=== PATIENT | female | born 1960 | race Caucasian/White ===

== ENCOUNTER 2021-12-14 08:18 | Emergency (ER) | payer BC, SELFPAY ==
[2021-12-14] VITALS (35 sets, daily range): BP systolic 90–133; BP diastolic 30–80; PULSE 80–110; RESP 17; TEMP 37–37.2; O2SAT 86–99
--- NOTE | 2021-12-14 08:43 | ED.GENADUL_ITS ---
Discharge Plan Disposition Patient Disposition: HOME Condition: Stable Discharge Details Clinical Impression: UTI (urinary tract infection) Primary Care Provider: Unknown,Unknown ED Provider: Selvin Crook Home Meds and New Rx's Prescriptions: New levofloxacin 750 mg tablet 750 mg PO Q24H 4 Days Qty: 4 0RF midodrine 5 mg tablet 5 mg PO TID Qty: 10 0RF Rx Instructions: do not give last dose of day after 6PM or within 4 hrs of bedtime ondansetron 4 mg tablet,disintegrating 4 mg PO TID PRN3 Days Qty: 9 0RF Continued midodrine 5 mg tablet 1 tab PO DAILY Label Comments: 1 tablet three times daily baclofen 10 mg tablet 0.5 tab PO Q8H PRN Label Comments: Take half a tablet by mouth every 8 hours pantoprazole 40 mg Tablet,Delayed Release (Dr/Ec) 40 mg PO DAILY gabapentin 300 mg capsule 2 cap PO Q8H PRN Label Comments: Take 2 capsules by mouth every 8 hours letrozole 2.5 mg tablet 1 tab PO DAILY Label Comments: 1 tablet daily Discharge Instructions Instructions: Urinary Tract Infection in Women (ED) Additional Instructions: Levaquin as directed. I have provided you a short-term refill of your midodrin e, take as directed. Please watch for new or worsening symptoms and return to the ER for any concerns. Please follow-up with your primary care provider as already scheduled on Sunday. Plenty of fluids to avoid dehydration Discharge Data Discharge Date/Time-TO BE ENTERED AT DEPARTURE: 12/14/21 14:54 Medical Decision Making This is a 61-year-old female with a past medical history of metastatic breast cancer, cervical fusion, inferior vena cava filter present, type 2 diabetes, normochromic normocytic anemia, obesity, hyperlipidemia, presenting for general fatigue, subjective fever, reporting that her Paula catheter has had decreased output, has not been changed since October, concern for UTI. Pulse of 105, blood p ressure 90/63, family reports that her blood pressure runs soft typically and she has not had her Midodrine in about 2 weeks. Plan to obtain IV access, give IV fluid, oral dose of her typical 5 mg of midodrine, obtain routine screening laboratory values, including a lactate, blood cultures, and urinalysis. We will have the Paula catheter changed as well. I was able to review a med rec and problem list from [facility] where she is scheduled be seen as a new patient on Sunday for the first time. With IV fluids and p.o. meds, her blood pressure is now normotensive. Pulse is now in the 80s. She remains afebrile. Paula catheter changed and revealed small leuk esterase, 10-20 white cells, few bacteria, culture pending. White blood cell count of 7.42. Hemoglobin 7.2 hematocrit 23. Denies black tarry stools or bright red blood in her stools. She does note that she has baseline anemia but unsure of the exact numbers. She does not appear acutely symptomatic from anemia. Sodium 136 potassium 3.3 BUN 16 creatinine 0.8 GFR 83.78, glucose 136. COVID-negative Laboratory values did not reveal any obvious emergent process, patient is now normotensive and no longer with tachycardia. No evidence of sepsis at this time. Plan is to provide IV Levaquin now and provide a prescription for the next 4 days, she will see her PCP on Sunday and otherwise will return to the ER for new or worsening symptoms. Standard discharge and return precautions were provided. Patient understands, is agreeable to this plan, and has no additional questions or concerns upon discharge. This documentation was generated using [employer] dictation system, please disregard any oddities of phrase or misspellings. Medical Records Medical records reviewed: Yes I reviewed the patient's medical records. Lab Data Lab results reviewed: Yes I reviewed the patient's lab results. Labs: 12/14/21 09:00 Blood Blood Culture - Preliminary Gram Negative Gurmeet 12/14/21 11:39 Urine - Reflex from Ua Urine Culture - Pending 12/14/21 09:30 Blood Blood Culture - Pending Laboratory Tests Range/Units 12/14/21 12/14/21 12/14/21 09:00 09:00 09:00 WBC (4.4-10.8) 10^3/uL 7.47 RBC (3.93-5.22) 10^6/uL 2.67 L Hgb (11.2-15.7) g/dL 7.2 L Hct (36.0-46.0) % 23.0 L MCV (80-95) fL 86 MCH (27.0-33.0) pg 27.0 MCHC (32.0-36.0) % 31.3 L RDW (11.7-14.6) % 14.6 Plt Count (130-400) 10^3/uL 153 MPV (8.0-11.0) fL 9.2 Immature Gran % 0.4 Neutrophils % 81.3 Lymphocytes % 11.4 Monocytes % 6.4 Eosinophils % 0.4 Basophils % 0.1 Nucleated RBC % (0.0-0.3) % 0.0 Absolute Neutrophils (1.2-6.7) 10^3/uL 6.07 Absolute Lymphocytes (1.2-3.4) 10^3/uL 0.85 L Absolute Monocytes (0.1-0.8) 10^3/uL 0.48 Absolute Eosinophils (0.0-0.7) 10^3/uL 0.03 Absolute Basophils (0.0-0.2) 10^3/uL 0.01 VBG Lactate (0.6-1.4) mmol/L 1.2 Sodium (136-145) mmol/L 136 Potassium (3.5-5.1) mmol/L 3.3 L Chloride (98-107) mmol/L 100 Carbon Dioxide (21.0-32.0) mmol/L 25.5 Anion Gap (3-11) mmol/L 10.5 BUN (7-18) mg/dL 16 Creatinine (0.55-1.02) mg/dL 0.8 Est GFR (CKD-EPI 2020) (mL/min/1.73m2) 83.78 Glucose (74-106) mg/dL 136 H Calcium (8.5-10.1) mg/dL 9.2 Total Bilirubin (0.2-1.0) mg/dL 0.6 AST (15-37) U/L 14 L ALT (14-59) U/L 12 L Alkaline Phosphatase (46-116) U/L 73 Total Protein (6.4-8.2) g/dL 7.4 Albumin (3.4-5.0) g/dL 2.7 L Urine Color (Yellow) Urine Clarity (Clear) Urine pH (5-8) Ur Specific Redfield (1.005-1.025) Urine Protein (Negative) mg/dL Urine Ketones (Negative) mg/dL Urine Blood (Negative) Urine Nitrite (Negative) Urine Bilirubin (Negative) Urine Urobilinogen (Up TO 0.2) EU/dL Ur Leukocyte Esterase (Negative) Urine RBC (0-2) HPF Urine WBC (0-5) HPF Ur Epithelial Cells (Negative) HPF Urine Crystals (Negative) HPF Urine Bacteria (Negative) HPF Urine Casts (Negative) LPF Urine Mucus (Negative) Ur Culture Indicated? Urine Glucose (Negative) mg/dL COVID-19 Source SARS-CoV-2 (PCR) (Negative) Range/Units 12/14/21 12/14/21 09:19 11:39 WBC (4.4-10.8) 10^3/uL RBC (3.93-5.22) 10^6/uL Hgb (11.2-15.7) g/dL Hct (36.0-46.0) % MCV (80-95) fL MCH (27.0-33.0) pg MCHC (32.0-36.0) % RDW (11.7-14.6) % Plt Count (130-400) 10^3/uL MPV (8.0-11.0) fL Immature Gran % Neutrophils % Lymphocytes % Monocytes % Eosinophils % Basophils % Nucleated RBC % (0.0-0.3) % Absolute Neutrophils (1.2-6.7) 10^3/uL Absolute Lymphocytes (1.2-3.4) 10^3/uL Absolute Monocytes (0.1-0.8) 10^3/uL Absolute Eosinophils (0.0-0.7) 10^3/uL Absolute Basophils (0.0-0.2) 10^3/uL VBG Lactate (0.6-1.4) mmol/L Sodium (136-145) mmol/L Potassium (3.5-5.1) mmol/L Chloride (98-107) mmol/L Carbon Dioxide (21.0-32.0) mmol/L Anion Gap (3-11) mmol/L BUN (7-18) mg/dL Creatinine (0.55-1.02) mg/dL Est GFR (CKD-EPI 2020) (mL/min/1.73m2) Glucose (74-106) mg/dL Calcium (8.5-10.1) mg/dL Total Bilirubin (0.2-1.0) mg/dL AST (15-37) U/L ALT (14-59) U/L Alkaline Phosphatase (46-116) U/L Total Protein (6.4-8.2) g/dL Albumin (3.4-5.0) g/dL Urine Color (Yellow) Yellow Urine Clarity (Clear) Sl Cloudy Urine pH (5-8) 5.5 Ur Specific Redfield (1.005-1.025) 1.020 Urine Protein (Negative) mg/dL Trace H Urine Ketones (Negative) mg/dL Trace H Urine Blood (Negative) Trace-lysed H Urine Nitrite (Negative) Negative Urine Bilirubin (Negative) Negative Urine Urobilinogen (Up TO 0.2) EU/dL 0.2 Ur Leukocyte Esterase (Negative) Small H Urine RBC (0-2) HPF 0-2 Urine WBC (0-5) HPF 10-20 H Ur Epithelial Cells (Negative) HPF Rare Urine Crystals (Negative) HPF Negative Urine Bacteria (Negative) HPF Few Urine Casts (Negative) LPF Negative Urine Mucus (Negative) Negative Ur Culture Indicated? Yes Urine Glucose (Negative) mg/dL Negative COVID-19 Source Nasal/Nares SARS-CoV-2 (PCR) (Negative) Negative HPI General Mode of arrival: wheelchair . Date/Time Provider Initiated Documentation: 12/14/21 08:38 . Limitations to Documentation: no limitations . Information obtained by: patient and family . HPI Narrative: This is a 61-year-old female presenting to the ER with her son, past medical history of metastatic breast cancer, cervical fusion, inferior vena cava filter present, type 2 diabetes, normochromic normocytic anemia, obesity, hyperlipidemia, presenting for general fatigue, subjective fever, reporting that her Paula catheter has had decreased output, has not been changed since October, concern for UTI. Patient recently relocated to the area and is scheduled to be seen by her PCP on Sunday for the first time. In the meantime unfortunately she did run out of her midodrine and reports that without this her blood pressure runs consistently low. She reported mild nausea with one episode of vomiting 2 days ago. She denies headache, chest pain, shortness of breath, abdominal pain, dysuria, hematuria. Denies black tarry stools or bright red blood in her stools. Denies skin rash. Secondary to her metastatic breast cancer, spinal metastasis, and subsequent surgery, she has very little to no motor use below the chest, does have normal sensation. Related Data Home Medications Medication Instructions Recorded Confirmed baclofen 10 mg tablet 0.5 tab PO Q8H PRN 12/14/21 12/14/21 gabapentin 300 mg capsule 2 cap PO Q8H PRN 12/14/21 12/14/21 letrozole 2.5 mg tablet 1 tab PO DAILY 12/14/21 12/14/21 levofloxacin 750 mg tablet 750 mg PO Q24H 4 days #4 tabs 12/14/21 midodrine 5 mg tablet 1 tab PO DAILY 12/14/21 12/14/21 midodrine 5 mg tablet 5 mg PO TID #10 tabs 12/14/21 ondansetron 4 mg disintegrating 4 mg PO TID PRN 3 days #9 tabs 12/14/21 tablet pantoprazole 40 mg tablet,delayed 40 mg PO DAILY 12/14/21 12/14/21 release Previous Rx's Medication Instructions Recorded levofloxacin 750 mg tablet 750 mg PO Q24H 4 days #4 tabs 12/14/21 midodrine 5 mg tablet 5 mg PO TID #10 tabs 12/14/21 ondansetron 4 mg disintegrating 4 mg PO TID PRN 3 days #9 tabs 12/14/21 tablet Allergies Allergy/AdvReac Type Severity Reaction Status Date / Time No Known Allergies Allergy Unverified 12/14/21 08:42 General Stated Complaint: Urinary EIMLY: 3 Review of Systems Constitutional Constitutional: Reports fever(s) and Denies headache(s) ENT Ears, Nose, Mouth, and Throat: Denies headache(s) and Denies neck pain Cardiovascular Cardiovascular: Denies chest pain and Denies dyspnea Respiratory Respiratory: Denies cough and Denies dyspnea Gastrointestinal Gastrointestinal: Denies abdominal pain, Denies melena, Denies hematochezia, Reports nausea and Reports vomiting Genitourinary Genitourinary: Reports difficulty voiding Musculoskeletal Musculoskeletal: Denies neck pain Integumentary/Breasts Skin/Breast: Denies rash Neurologic Neurologic: Denies headache(s) Hematologic/Lymphatic Hematologic/Lymphatic: Denies easy bleeding and Denies easy bruising PFSH All Active Problems (Updated 12/14/21 @ 14:18 by PILLO Forde) UTI (urinary tract infection) (Acute) Social History Smoking/Tobacco Use Status: Never Smoking risk assessment performed?: Yes Alcohol Intake: never Drug use: Never Substance use type: does not use Do you feel safe at home: Yes Do you feel safe in your relationship?: Yes Exam Const General: cooperative, healthy appearing, comfortable and no acute distress Orientation: alert, awake and oriented x3 HENMT Head: normal to inspection, normocephalic and atraumatic Face and sinus: normal facial exam Mouth: moist mucous membranes abnormal (Slightly dry) Eyes General: appearance normal, both eyes and all related structures Conjunctivae: conjunctivae normal Neck Neck: normal visual inspection, full ROM, no meningeal signs, trachea midline, supple and nontender Resp Effort & Inspection: normal respiratory effort and able to speak in complete sentences Auscultation: clear to auscultation bilaterally Cardio Rate: regular rate Rhythm: regular rhythm GI Palpation: soft, not firm, no guarding, no pulsatile masses and nontender Auscultation: normal bowel sounds Skin General skin exam: no rashes or lesions noted Neuro General: patient alert, patient awake, moves all extremities and no focal motor deficits Cognition: normal cognition Speech: speech normal Sensory Exam: no sensory deficits noted Extrem General: capillary refill normal Psych Appearance: grossly normal Mental Status: mental status grossly normal Course Vital Signs Vital signs: Vital Signs Temperature 37.2 C 12/14/21 08:32 Pulse 105 H 12/14/21 08:32 Respiratory Rate 17 12/14/21 08:32 Blood Pressure 90/63 L 12/14/21 08:32 Pulse Oximetry 95 12/14/21 08:32 Temperature 37.2 C 12/14/21 08:32 Temperature Source Temporal Artery Scan 12/14/21 08:32 Pulse 105 H 12/14/21 08:32 Respiratory Rate 17 12/14/21 08:32 Respiratory Effort Non-Labored 12/14/21 08:36 Blood Pressure 90/63 L 12/14/21 08:32 Blood Pressure Position Sitting 12/14/21 08:32 Pulse Oximetry 95 12/14/21 08:32 Oxygen Delivery Method Room Air 12/14/21 08:32 Oxygen Flow Rate 0 12/14/21 08:32
[2021-12-14 09:07] LABS: Lactate 1.2 mmol/L (0.6-1.4)
[2021-12-14 09:08] LABS: Abs Immature Grans 0.03 10^3/uL (0.0-0.06); Absolute Basophil Count 0.01 10^3/uL (0.0-0.2); Absolute Eosinophil Count 0.03 10^3/uL (0.0-0.7); Absolute Lymphocyte Count 0.85 10^3/uL (1.2-3.4); Absolute Monocyte Count 0.48 10^3/uL (0.1-0.8); Absolute Neutrophil Count 6.07 10^3/uL (1.2-6.7); Basophils % 0.1; Eosinophils % 0.4; HGB 7.2 g/dL (11.2-15.7); Immature Grans % 0.4; Lymphocytes % 11.4; MCHC 31.3 % (32.0-36.0); MCV 86 fL (80-95); MPV 9.2 fL (8.0-11.0); Monocytes % 6.4; Neutrophils % 81.3; Platelet Count 153 10^3/uL (130-400); RBC 2.67 10^6/uL (3.93-5.22); RDW 14.6 % (11.7-14.6); RDW-SD 46.5 fL; WBC 7.47 10^3/uL (4.4-10.8)
[2021-12-14] MEDS: Normal Saline 1,000 ML 1000 ML IV ×2 (09:10→11:43)
[2021-12-14] MEDS: Ondansetron 4 MG/2 ML VIAL IVP (09:10)
[2021-12-14 09:52] LABS: ALT 12 U/L (14-59); AST 14 U/L (15-37); Albumin 2.7 g/dL (3.4-5.0); Alkaline Phosphatase 73 U/L (46-116); Anion Gap 10.5 mmol/L (3-11); BUN 16 mg/dL (7-18); Bilirubin, Total 0.6 mg/dL (0.2-1.0); CO2 25.5 mmol/L (21.0-32.0); CREATININE 0.8 mg/dL (0.55-1.02); Calcium 9.2 mg/dL (8.5-10.1); Chloride 100 mmol/L (98-107); Estimated GFR 83.78 (mL/min/1.73m2); Glucose 136 mg/dL (74-106); Potassium 3.3 mmol/L (3.5-5.1); Sodium 136 mmol/L (136-145); Total Protein 7.4 g/dL (6.4-8.2)
[2021-12-14 10:14] LABS: Source Nasal/Nares
[2021-12-14 10:46] LABS: COVID-19 PCR Negative (Negative)
[2021-12-14] MEDS: Midodrine 2.5 MG TAB 5 MG PO (11:42)
[2021-12-14 11:45] LABS: Bilirubin Negative (Negative); Blood Trace-lysed (Negative); Clarity Sl Cloudy (Clear); Glucose Negative (Negative); Ketones Trace mg/dL (Negative); Leukocyte Esterase Small (Negative); Nitrite Negative (Negative); Urobilinogen 0.2 EU/dL (Up TO 0.2); pH 5.5 (5-8)
--- NOTE | 2021-12-14 11:46 | NUR.NOTE ---
Nursing Note: Pt came in with mancera which was removed. New mancera was placed with small amount of urine output and then nothing, tried flushing with no success. Mancera removed and new one re-inserted which returned good urine flow
[2021-12-14 11:53] LABS: Bacteria Few HPF (Negative); C & S Indicated? Yes; Casts Negative LPF (Negative); Crystals Negative HPF (Negative); Epithelial Cells Rare HPF (Negative); Mucus Negative (Negative); RBC 0-2 HPF (0-2)
[2021-12-14] MEDS: levoFLOXacin 750 MG/150 ML BAG 100 MG IVPB (12:30)
--- NOTE | 2021-12-15 09:26 | W.ED.FU ---
Date of service: 12/15/21 Time of Service: 09:26 Follow Up Plan: Blood cultures, preliminarily, reveal anaerobic bottle positive, gram stain shows gram-negative rods. I contacted the patient on her cell phone, was able to speak with her son Hao. He reports that she is afebrile and overall feeling well, currently having breakfast. He was made aware of the positive blood cultures and the importance of returning to the ER. He understands that she will likely require admission and IV antibiotics. She is going to finish breakfast and then return to the ER.
== END 2021-12-14 14:54 | disposition home or self-care (01) ==
PROVIDERS: Emergency Provider Physician Assistant
DX: N39.0 Urinary tract infection, site not specified (principal); Z20.822 Contact with and (suspected) exposure to COVID-19; E11.9 Type 2 diabetes mellitus without complications; R00.0 Tachycardia, unspecified
CPT/HCPCS: 36415; 80053; 87040; 87077; 87635; 96361; 96365; 96375; 99284; 81003; 81015; 83605; 85025; 87086; 87186; J1956; J2405

== ENCOUNTER 2021-12-15 10:01 | Inpatient (IN) | payer BC, SELFPAY ==
[2021-12-15] VITALS (11 sets, daily range): BP systolic 105–130; BP diastolic 70–85; PULSE 82–101; RESP 14–20; TEMP 36.6–38.4; O2SAT 95–100
--- NOTE | 2021-12-15 | DI.US_ITS ---
Exam(s) US RENAL EXAM: US RENAL CLINICAL HISTORY: UTI. TECHNIQUE: Ann scale, color and spectral Doppler were used. COMPARISON: No exams were available for comparison FINDINGS: Renal size in cm: Right: 11.2. Left: 12.1. Echogenicity: Normal. Hydronephrosis: No. Cyst or mass: No. Nephrolithiasis: No. Other findings: None. Bladder:The urinary bladder cannot be evaluated. A catheter balloon is seen within a completely empt y urinary bladder. Renal color flow: Symmetric and within normal limits. IMPRESSION: Unremarkable examination. DATA REPOSITORY:
--- NOTE | 2021-12-15 10:04 | W.ED.GENAD ---
Discharge Plan Disposition Patient Disposition: [facility] INPATIENT Condition: Stable Discharge Details Chief Complaint: Urinary Clinical Impression: Bacteremia Primary Care Provider: Unknown,Unknown ED Provider: Selvin Crook Home Meds and New Rx's Prescriptions: No Action midodrine 5 mg tablet 1 tab PO DAILY Label Comments: 1 tablet three times daily baclofen 10 mg tablet 0.5 tab PO Q8H PRN Label Comments: Take half a tablet by mouth every 8 hours pantoprazole 40 mg Tablet,Delayed Release (Dr/Ec) 40 mg PO DAILY gabapentin 300 mg capsule 2 cap PO Q8H PRN Label Comments: Take 2 capsules by mouth every 8 hours letrozole 2.5 mg tablet 1 tab PO DAILY Label Comments: 1 tablet daily levofloxacin 750 mg tablet 750 mg PO Q24H 4 Days Qty: 4 0RF midodrine 5 mg tablet 5 mg PO TID Qty: 10 0RF Rx Instructions: do not give last dose of day after 6PM or within 4 hrs of bedtime ondansetron 4 mg tablet,disintegrating 4 mg PO TID PRN3 Days Qty: 9 0RF Medical Decision Making This is a 61-year-old female who was seen in the ER yesterday, diagnosed with a UTI, Paula catheter changed, he called back to the ER today given she had 2 positive blood cultures. Patient reports that she fell perform yesterday evening but did not have a fever. Did have mild nausea but no vomiting. Overall no significant change in her symptoms over the past 24 hours. Given her 2 gram negative broad cultures, plan is to initiate a septic work-up, I will initiate IV Rocephin and vancomycin, and discussed the admission with our hospitalist. Case was discussed with Dr. Garvey, she felt as though be Levaquin with an appropriate antibiotic and did not recommend initiating additional antibiotics. She would like the septic work-up completed and then reassess potential admission as she questions if the patient has normal labs if the patient will be well enough to go home Patient remains hemodynamically stable. Laboratory values reveal anemia, and ESR of 60, lactate of 1.3, procalcitonin 0.8, COVID-negative. CRP of 20.80. Chest x-ray unremarkable Case again discussed with Dr. Garvey who is agreeable to admission and will place admission orders This documentation was generated using [employer] system, please disregard any oddities of phrase or misspellings. Medical Records Medical records reviewed: Yes I reviewed the patient's medical records. Imaging Data Radiologic Study: Attestation: I personally reviewed and interpreted this imaging study as follows: Imaging: X-Ray Radiologist's impression: Exam(s) XR PORTABLE CHEST AP EXAM: XR PORTABLE CHEST AP CLINICAL HISTORY: bactermia TECHNIQUE: 2D digital imaging was performed of the chest. One image was obtained. An AP view was obtained. COMPARISON: No exams were available for comparison FINDINGS: There is poor inspiration. MEDIASTINUM: Normal. HEART: Normal. PULMONARY VASCULATURE: Normal. LUNGS: Clear. PLEURAL SPACE: No pleural effusion or pneumothorax. BONE:Within normal limits for the patient's age. There is an old right rib fracture deformity. OTHER FINDINGS:Surgical clips are seen in the soft tissues. Postsurgical changes are seen in the lower cervical spine. IMPRESSION: No acute pulmonary findings. Lab Data Lab results reviewed: Yes I reviewed the patient's lab results. Labs: 12/15/21 12:35 Blood Blood Culture - Pending 12/15/21 12:30 Blood Blood Culture - Pending Laboratory Tests Range/Units 12/15/21 12/15/21 12/15/21 11:46 11:53 12:30 WBC (4.4-10.8) 10^3/uL RBC (3.93-5.22) 10^6/uL Hgb (11.2-15.7) g/dL Hct (36.0-46.0) % MCV (80-95) fL MCH (27.0-33.0) pg MCHC (32.0-36.0) % RDW (11.7-14.6) % Plt Count (130-400) 10^3/uL MPV (8.0-11.0) fL Immature Gran % Neutrophils % Lymphocytes % Monocytes % Eosinophils % Basophils % Nucleated RBC % (0.0-0.3) % Absolute Neutrophils (1.2-6.7) 10^3/uL Absolute Lymphocytes (1.2-3.4) 10^3/uL Absolute Monocytes (0.1-0.8) 10^3/uL Absolute Eosinophils (0.0-0.7) 10^3/uL Absolute Basophils (0.0-0.2) 10^3/uL ESR (0-30) mm/hr PT (9.3-11.0) sec INR (0.9-1.1) VBG Lactate (0.6-1.4) mmol/L Sodium (136-145) mmol/L 133 L Potassium (3.5-5.1) mmol/L 4.2 Chloride (98-107) mmol/L 99 Carbon Dioxide (21.0-32.0) mmol/L 25.9 Anion Gap (3-11) mmol/L 8.1 BUN (7-18) mg/dL 13 Creatinine (0.55-1.02) mg/dL 0.4 L Est GFR (CKD-EPI 2020) (mL/min/1.73m2) 112.53 Glucose (74-106) mg/dL 85 Calcium (8.5-10.1) mg/dL 8.1 L Total Bilirubin (0.2-1.0) mg/dL 0.4 AST (15-37) U/L 26 ALT (14-59) U/L 12 L Alkaline Phosphatase (46-116) U/L 63 C-Reactive Protein (0.0-0.3) mg/dL 20.80 H Total Protein (6.4-8.2) g/dL 6.0 L Albumin (3.4-5.0) g/dL 2.3 L Procalcitonin ng/mL 0.8 COVID-19 Source Nasal/Nares SARS-CoV-2 (PCR) (Negative) Negative Range/Units 12/15/21 12/15/21 12/15/21 12:30 12:30 12:30 WBC (4.4-10.8) 10^3/uL 5.43 RBC (3.93-5.22) 10^6/uL 3.13 L Hgb (11.2-15.7) g/dL 8.5 L Hct (36.0-46.0) % 26.1 L MCV (80-95) fL 83 MCH (27.0-33.0) pg 27.2 MCHC (32.0-36.0) % 32.6 RDW (11.7-14.6) % 14.3 Plt Count (130-400) 10^3/uL 162 MPV (8.0-11.0) fL 9.2 Immature Gran % 0.4 Neutrophils % 76.7 Lymphocytes % 14.9 Monocytes % 7.4 Eosinophils % 0.4 Basophils % 0.2 Nucleated RBC % (0.0-0.3) % 0.0 Absolute Neutrophils (1.2-6.7) 10^3/uL 4.17 Absolute Lymphocytes (1.2-3.4) 10^3/uL 0.81 L Absolute Monocytes (0.1-0.8) 10^3/uL 0.40 Absolute Eosinophils (0.0-0.7) 10^3/uL 0.02 Absolute Basophils (0.0-0.2) 10^3/uL 0.01 ESR (0-30) mm/hr 60 H PT (9.3-11.0) sec INR (0.9-1.1) VBG Lactate (0.6-1.4) mmol/L 1.3 Sodium (136-145) mmol/L Potassium (3.5-5.1) mmol/L Chloride (98-107) mmol/L Carbon Dioxide (21.0-32.0) mmol/L Anion Gap (3-11) mmol/L BUN (7-18) mg/dL Creatinine (0.55-1.02) mg/dL Est GFR (CKD-EPI 2020) (mL/min/1.73m2) Glucose (74-106) mg/dL Calcium (8.5-10.1) mg/dL Total Bilirubin (0.2-1.0) mg/dL AST (15-37) U/L ALT (14-59) U/L Alkaline Phosphatase (46-116) U/L C-Reactive Protein (0.0-0.3) mg/dL Total Protein (6.4-8.2) g/dL Albumin (3.4-5.0) g/dL Procalcitonin ng/mL COVID-19 Source SARS-CoV-2 (PCR) (Negative) Range/Units 12/15/21 12:30 WBC (4.4-10.8) 10^3/uL RBC (3.93-5.22) 10^6/uL Hgb (11.2-15.7) g/dL Hct (36.0-46.0) % MCV (80-95) fL MCH (27.0-33.0) pg MCHC (32.0-36.0) % RDW (11.7-14.6) % Plt Count (130-400) 10^3/uL MPV (8.0-11.0) fL Immature Gran % Neutrophils % Lymphocytes % Monocytes % Eosinophils % Basophils % Nucleated RBC % (0.0-0.3) % Absolute Neutrophils (1.2-6.7) 10^3/uL Absolute Lymphocytes (1.2-3.4) 10^3/uL Absolute Monocytes (0.1-0.8) 10^3/uL Absolute Eosinophils (0.0-0.7) 10^3/uL Absolute Basophils (0.0-0.2) 10^3/uL ESR (0-30) mm/hr PT (9.3-11.0) sec 10.9 INR (0.9-1.1) 1.1 VBG Lactate (0.6-1.4) mmol/L Sodium (136-145) mmol/L Potassium (3.5-5.1) mmol/L Chloride (98-107) mmol/L Carbon Dioxide (21.0-32.0) mmol/L Anion Gap (3-11) mmol/L BUN (7-18) mg/dL Creatinine (0.55-1.02) mg/dL Est GFR (CKD-EPI 2020) (mL/min/1.73m2) Glucose (74-106) mg/dL Calcium (8.5-10.1) mg/dL Total Bilirubin (0.2-1.0) mg/dL AST (15-37) U/L ALT (14-59) U/L Alkaline Phosphatase (46-116) U/L C-Reactive Protein (0.0-0.3) mg/dL Total Protein (6.4-8.2) g/dL Albumin (3.4-5.0) g/dL Procalcitonin ng/mL COVID-19 Source SARS-CoV-2 (PCR) (Negative) HPI General Mode of arrival: wheelchair. Date/Time Provider Initiated Documentation: 12/15/21 10:03. Limitations to Documentation: no limitations. Information obtained by: patient and family. HPI Narrative: This is a 61-year-old female with a past medical history of metastatic breast cancer, cervical fusion, inferior vena cava filter present, type 2 diabetes, normochromic normocytic anemia, obesity, hyperlipidemia, presenting for evaluation after being called back because of positive blood cultures during her evaluation yesterday. Patient was seen in the ER yesterday and diagnosed with an UTI, placed on Levaquin. Denies any significant change in her symptoms from yesterday. She states that she did feel a little warm last night but denies fever. Reports that she did gag once while brushing her teeth this morning but did not vomit. Denies abdominal pain. Reports that her Paula catheter is draining far better than yesterday. Related Data Home Medications Medication Instructions Recorded Confirmed baclofen 10 mg tablet 0.5 tab PO Q8H PRN 12/14/21 12/15/21 gabapentin 300 mg capsule 2 cap PO Q8H PRN 12/14/21 12/15/21 letrozole 2.5 mg tablet 1 tab PO DAILY 12/14/21 12/15/21 levofloxacin 750 mg tablet 750 mg PO Q24H 4 days #4 tabs 12/14/21 12/15/21 midodrine 5 mg tablet 1 tab PO DAILY 12/14/21 12/15/21 midodrine 5 mg tablet 5 mg PO TID #10 tabs 12/14/21 12/15/21 ondansetron 4 mg disintegrating 4 mg PO TID PRN 3 days #9 tabs 12/14/21 12/15/21 tablet pantoprazole 40 mg tablet,delayed 40 mg PO DAILY 12/14/21 12/15/21 release Previous Rx's Medication Instructions Recorded levofloxacin 750 mg tablet 750 mg PO Q24H 4 days #4 tabs 12/14/21 midodrine 5 mg tablet 5 mg PO TID #10 tabs 12/14/21 ondansetron 4 mg disintegrating 4 mg PO TID PRN 3 days #9 tabs 12/14/21 tablet Allergies Allergy/AdvReac Type Severity Reaction Status Date / Time No Known Allergies Allergy Unverified 12/15/21 10:15 General EMILY: 3 Review of Systems Constitutional Constitutional: Denies fever(s) and Reports weakness (Baseline status post cervical surgery) ENT Ears, Nose, Mouth, and Throat: Denies neck pain Cardiovascular Cardiovascular: Denies chest pain and Denies dyspnea Respiratory Respiratory: Denies cough and Denies dyspnea Gastrointestinal Gastrointestinal: Denies abdominal pain, Denies melena, Denies hematochezia, Reports nausea and Denies vomiting Genitourinary Genitourinary: Denies hematuria and Denies dysuria Musculoskeletal Musculoskeletal: Denies back pain and Denies neck pain Integumentary/Breasts Skin/Breast: Denies rash Neurologic Neurologic: Reports weakness (Baseline status post cervical surgery) Hematologic/Lymphatic Hematologic/Lymphatic: Denies easy bleeding and Denies easy bruising PFSH All Active Problems (Updated 12/15/21 @ 13:38 by PILLO Forde) UTI (urinary tract infection) (Acute) Bacteremia (Acute) Social History Smoking/Tobacco Use Status: Never Smoking risk assessment performed?: Yes Alcohol Intake: never Drug use: Never Substance use type: does not use Do you feel safe at home: Yes Do you feel safe in your relationship?: Yes Exam Const General: cooperative, comfortable and no acute distress Orientation: alert, awake and oriented x3 HENMT Head: normal to inspection, normocephalic and atraumatic Face and sinus: normal facial exam Mouth: moist mucous membranes Eyes General: appearance normal, both eyes and all related structures Conjunctivae: conjunctivae normal Neck Neck: normal visual inspection, full ROM, no lymphadenopathy, no meningeal signs, trachea midline, supple and nontender Resp Effort & Inspection: normal respiratory effort and able to speak in complete sentences Auscultation: clear to auscultation bilaterally Cardio Rate: regular rate Rhythm: regular rhythm GI Inspection: normal to inspection Palpation: soft, not firm, no guarding, no pulsatile masses and nontender Skin General skin exam: no rashes or lesions noted Neuro General: patient alert and patient awake Cognition: normal cognition Speech: speech normal Extrem General: full ROM and capillary refill normal Psych Appearance: grossly normal Mental Status: mental status grossly normal
--- NOTE | 2021-12-15 10:15 | DI.RAD_ITS ---
Exam(s) XR PORTABLE CHEST AP EXAM: XR PORTABLE CHEST AP CLINICAL HISTORY: bactermia TECHNIQUE: 2D digital imaging was performed of the chest. One image was obtained. An AP view was ob tained. COMPARISON: No exams were available for comparison FINDINGS: There is poor inspiration. MEDIASTINUM: Normal. HEART: Normal. PULMONARY VASCULATURE: Normal. LUNGS: Clear. PLEURAL SPACE: No pleural effusion or pneumothorax. BONE:Within normal limits for the patient's age. There is an old right rib fracture deformity. OTHER FINDINGS:Surgical clips are seen in the soft tissues. Postsurgical changes are seen in the low er cervical spine. IMPRESSION: No acute pulmonary findings. DATA REPOSITORY: RADIATION DOSE DELIVERED:
[2021-12-15] MEDS: Normal Saline 1,000 ML 1000 ML IV (11:50)
[2021-12-15 11:58] LABS: Source Nasal/Nares
[2021-12-15 12:20] LABS: ALT 12 U/L (14-59); AST 26 U/L (15-37); Albumin 2.3 g/dL (3.4-5.0); Alkaline Phosphatase 63 U/L (46-116); Anion Gap 8.1 mmol/L (3-11); BUN 13 mg/dL (7-18); Bilirubin, Total 0.4 mg/dL (0.2-1.0); CO2 25.9 mmol/L (21.0-32.0); CREATININE 0.4 mg/dL (0.55-1.02); Calcium 8.1 mg/dL (8.5-10.1); Chloride 99 mmol/L (98-107); Estimated GFR 112.53 (mL/min/1.73m2); Glucose 85 mg/dL (74-106); Potassium 4.2 mmol/L (3.5-5.1); Sodium 133 mmol/L (136-145)
[2021-12-15 12:32] LABS: Lactate 1.3 mmol/L (0.6-1.4)
[2021-12-15 12:33] LABS: ESR 60 mm/hr (0-30)
[2021-12-15 12:35] LABS: COVID-19 PCR Negative (Negative)
[2021-12-15 12:38] LABS: Abs Immature Grans 0.02 10^3/uL (0.0-0.06); Absolute Basophil Count 0.01 10^3/uL (0.0-0.2); Absolute Eosinophil Count 0.02 10^3/uL (0.0-0.7); Absolute Lymphocyte Count 0.81 10^3/uL (1.2-3.4); Absolute Neutrophil Count 4.17 10^3/uL (1.2-6.7); Basophils % 0.2; Eosinophils % 0.4; HCT 26.1 % (36.0-46.0); HGB 8.5 g/dL (11.2-15.7); Immature Grans % 0.4; Lymphocytes % 14.9; MCH 27.2 pg (27.0-33.0); MCHC 32.6 % (32.0-36.0); MCV 83 fL (80-95); MPV 9.2 fL (8.0-11.0); Monocytes % 7.4; Neutrophils % 76.7; Platelet Count 162 10^3/uL (130-400); RBC 3.13 10^6/uL (3.93-5.22); RDW 14.3 % (11.7-14.6); RDW-SD 43.5 fL; WBC 5.43 10^3/uL (4.4-10.8)
[2021-12-15 12:45] LABS: INR 1.1 (0.9-1.1); Prothrombin Time 10.9 sec (9.3-11.0)
[2021-12-15 13:06] LABS: Procalcitonin 0.8 ng/mL
--- NOTE | 2021-12-15 13:35 | HPE_ITS ---
Date of service: 12/15/21 Time of Service: 13:35 Assessment and Plan Assessment and plan (1) Gram-negative bacteremia: Status: Acute Assessment and plan: Due to GNR UTI, present on admission. Await blood cultures and sensitivity results. Would continue levofloxacin started yesterday. Will monitor procalcitonin and CRP. Mancera catheter exchanged. Await renal imaging. (2) UTI (urinary tract infection): Status: Acute Assessment and plan: As above (3) Chronic anemia: Status: Chronic Assessment and plan: check anemia studies (4) Non-insulin dependent diabetes mellitus: Assessment and plan: Check A1C Carb consistent diet. Check fingersticks and offer SSI. (5) Neurogenic bladder: Assessment and plan: Mancera catheter exchanged yesterday in the ED. Will ensure the patient has the resources in the community to assist with the monthly mancera catheter changes. (6) Metastatic breast cancer: Assessment and plan: Continue home letrozole. Consult palliative care. (7) Decubitus skin ulcer: Status: Acute Assessment and plan: C/s wound care (8) DVT prophylaxis: Status: Acute Assessment and plan: SC enoxaparin (9) Discharge planning issues: Status: Acute Assessment and plan: Full code C/s PT, OT, palliative care. History of Present Illness History of Present Illness Chief Complaint: called back for positive blood cultures Narrative: Ms Back is a 61 year old female w/ PMHx of metastatic breast cancer metastatic to cervical spine resulting in paraplegia and neurogenic bladder, s/p indwelling mancera, as well as h/o IVC filter (prophylactic), T2DM (noninsulin dependent, diet controlled), hyperlipidemia, who was asked to return to the ED today due to blood cultures, collected at [facility] ED yesterday, being positive. At that time, she had presented with complaints of fatigue, subjective fever (as per ER records; the patient actually denies this), cloudy urine and a clogged mancera catheter, which was exchanged. The patient also reports having had nausea/vomiting the day before. She was initiated on empiric levofloxacin and discharged home. Both her urine and 2/4 blood cultures from yesterday's ER visit are growing GNR (likely Klebsiella, per microbiology; sensitivities will not be available until tomorrow). The patient has an elevated CRP of 20.80, procalcitonin of 0.8. She was hypotensive down to 90/63 yesterday having run out of midodrine, but it was refilled yesterday, and today her BP is 129/72. Her lactate is 1.3. The patient does not feel worse today but also does not feel better. Hospitalist admission was requested. The patient denies sx of COVID-19. She is not vaccinated against COVID-19. She has yet to be plugged in with a new PCP and does not currently have a way to get her catheter supplies. Review of Systems All systems reviewed & are unremarkable except as noted in HPI and below PFSH All Active Problems (Updated 12/15/21 @ 19:12 by Marimar Garvey MD) Decubitus skin ulcer (Acute) Discharge planning issues (Acute) DVT prophylaxis (Acute) Chronic anemia (Chronic) Gram-negative bacteremia (Acute) UTI (urinary tract infection) (Acute) Bacteremia (Acute) Medical History (Updated 12/15/21 @ 19:12 by Marimar Garvey MD) Hyperlipidemia Indwelling Mancera catheter present Metastatic breast cancer Neurogenic bladder Non-insulin dependent diabetes mellitus Normocytic normochromic anemia Paraplegia Surgical History (Updated 12/15/21 @ 19:07 by Marimar Garvey MD) H/O bilateral mastectomy S/P cervical spinal fusion S/P IVC filter Family History (Updated 12/15/21 @ 19:08 by Marimar Garvey MD) Brother Hypertension Mother Breast cancer Other Heart disease Social History Smoking/Tobacco Use Status: Never Smoking risk assessment performed?: Yes Alcohol Intake: never Drug use: Never Substance use type: does not use Do you feel safe at home: Yes Do you feel safe in your relationship?: Yes Meds Allergies and Home Medications Allergies Allergy/AdvReac Type Severity Reaction Status Date / Time No Known Allergies Allergy Unverified 12/15/21 10:15 Home Medications Medication Instructions Recorded Confirmed Type baclofen 10 mg tablet 0.5 tab PO Q8H PRN 12/14/21 12/15/21 History gabapentin 300 mg capsule 2 cap PO Q8H 12/14/21 12/15/21 History letrozole 2.5 mg tablet 1 tab PO DAILY 12/14/21 12/15/21 History levofloxacin 750 mg tablet 750 mg PO Q24H 4 days #4 tabs 12/14/21 12/15/21 Rx midodrine 5 mg tablet 5 mg PO TID #10 tabs 12/14/21 12/15/21 Rx ondansetron 4 mg disintegrating 4 mg PO TID PRN 3 days #9 tabs 12/14/21 12/15/21 Rx tablet pantoprazole 40 mg tablet,delayed 40 mg PO DAILY 12/14/21 12/15/21 History release Exam Narrative Exam Narrative: General: Very pleasant Middle-aged female who is sitting up in a chair, does not appear toxic, A&Ox3, NAD Neurological: A&Ox3, able to move BUEs and her toes; otherwise, BLE sweakness Psychiatric: Appropriate speech pattern/contenct Skin: Decubitous wounds buttocks HEENT: Atraumatic, normocephalic, EOMI, MMM, clear oropharynx, no submandibular or cervical lymphadenopathy, no goiter or JVD Cardiovascular: RRR, no m/r/g Lungs: CTAB anteriorly Gastrointestinal: soft, nontender, nondistended Genitourinary: has a mancera Extremities: no edema BLEs, +1 pedal pulses B; able to slightly move toes on B feet. Results Imaging Additional studies: CXR: No acute pulmonary findings. Labs Result diagrams: 12/15/21 12:30 12/15/21 11:46 Labs: Laboratory Results - last 24 hr 12/15/21 12/15/21 12/15/21 11:46 11:53 12:30 WBC RBC Hgb Hct MCV MCH MCHC RDW Plt Count MPV Immature Gran % Neutrophils % Lymphocytes % Monocytes % Eosinophils % Basophils % Nucleated RBC % Absolute Neutrophils Absolute Lymphocytes Absolute Monocytes Absolute Eosinophils Absolute Basophils ESR PT INR VBG Lactate Sodium 133 L Potassium 4.2 Chloride 99 Carbon Dioxide 25.9 Anion Gap 8.1 BUN 13 Creatinine 0.4 L Est GFR (CKD-EPI 2020) 112.53 Glucose 85 Calcium 8.1 L Total Bilirubin 0.4 AST 26 ALT 12 L Alkaline Phosphatase 63 C-Reactive Protein 20.80 H Total Protein 6.0 L Albumin 2.3 L Procalcitonin 0.8 COVID-19 Source Nasal/Nares SARS-CoV-2 (PCR) Negative 0912/15/21 12/15/21 12:30 12:30 12:30 WBC 5.43 RBC 3.13 L Hgb 8.5 L Hct 26.1 L MCV 83 MCH 27.2 MCHC 32.6 RDW 14.3 Plt Count 162 MPV 9.2 Immature Gran % 0.4 Neutrophils % 76.7 Lymphocytes % 14.9 Monocytes % 7.4 Eosinophils % 0.4 Basophils % 0.2 Nucleated RBC % 0.0 Absolute Neutrophils 4.17 Absolute Lymphocytes 0.81 L Absolute Monocytes 0.40 Absolute Eosinophils 0.02 Absolute Basophils 0.01 ESR 60 H PT INR VBG Lactate 1.3 Sodium Potassium Chloride Carbon Dioxide Anion Gap BUN Creatinine Est GFR (CKD-EPI 2020) Glucose Calcium Total Bilirubin AST ALT Alkaline Phosphatase C-Reactive Protein Total Protein Albumin Procalcitonin COVID-19 Source SARS-CoV-2 (PCR) 12/15/21 12:30 WBC RBC Hgb Hct MCV MCH MCHC RDW Plt Count MPV Immature Gran % Neutrophils % Lymphocytes % Monocytes % Eosinophils % Basophils % Nucleated RBC % Absolute Neutrophils Absolute Lymphocytes Absolute Monocytes Absolute Eosinophils Absolute Basophils ESR PT 10.9 INR 1.1 VBG Lactate Sodium Potassium Chloride Carbon Dioxide Anion Gap BUN Creatinine Est GFR (CKD-EPI 2020) Glucose Calcium Total Bilirubin AST ALT Alkaline Phosphatase C-Reactive Protein Total Protein Albumin Procalcitonin COVID-19 Source SARS-CoV-2 (PCR) Last Vital Signs Temp 37.1 C 12/15/21 12:57 Pulse 89 12/15/21 12:57 Resp 18 12/15/21 12:57 BP 129/72 12/15/21 12:57 Pulse Ox 97 12/15/21 12:57
[2021-12-15] MEDS: Enoxaparin 40 MG/0.4 ML SYR SC (16:13)
[2021-12-15] MEDS: Midodrine 2.5 MG TAB 5 MG PO (16:13)
[2021-12-15] MEDS: Normal Saline Flush 10 ML SYR IVP (16:14)
[2021-12-15] MEDS: levoFLOXacin 750 MG/150 ML BAG 100 MG IVPB (16:14)
[2021-12-15] MEDS: Gabapentin 300 MG CAP 600 MG PO ×2 (16:14→21:04)
[2021-12-15] MEDS: Acetaminophen 325 MG TAB PO (21:29)
[2021-12-16] VITALS (11 sets, daily range): BP systolic 95–137; BP diastolic 62–95; PULSE 62–90; RESP 16–22; TEMP 36.2–38.7; O2SAT 93–99
[2021-12-16 07:16] LABS: Abs Immature Grans 0.03 10^3/uL (0.0-0.06); Absolute Basophil Count 0.01 10^3/uL (0.0-0.2); Absolute Eosinophil Count 0.02 10^3/uL (0.0-0.7); Absolute Lymphocyte Count 0.69 10^3/uL (1.2-3.4); Absolute Monocyte Count 0.33 10^3/uL (0.1-0.8); Absolute Neutrophil Count 3.36 10^3/uL (1.2-6.7); Basophils % 0.2; Eosinophils % 0.5; HGB 10.4 g/dL (11.2-15.7); Immature Grans % 0.7; Lymphocytes % 15.5; MCH 27.5 pg (27.0-33.0); MCHC 33.5 % (32.0-36.0); MCV 82 fL (80-95); MPV 9.9 fL (8.0-11.0); Monocytes % 7.4; Neutrophils % 75.7; Platelet Count 161 10^3/uL (130-400); RBC 3.78 10^6/uL (3.93-5.22); RDW 14.1 % (11.7-14.6); RDW-SD 41.9 fL; WBC 4.44 10^3/uL (4.4-10.8)
[2021-12-16 07:33] LABS: Hemoglobin A1C 6.4 % (<5.7)
[2021-12-16 07:42] LABS: Iron 18 ug/dL (50-170); Total Iron Binding Capacity 153 ug/dL (250-450); Transferrin Sat 12 % (15-50)
[2021-12-16 07:58] LABS: Anion Gap 10.5 mmol/L (3-11); BUN 10 mg/dL (7-18); CO2 27.5 mmol/L (21.0-32.0); CREATININE 0.5 mg/dL (0.55-1.02); Calcium 8.6 mg/dL (8.5-10.1); Chloride 100 mmol/L (98-107); Estimated GFR 106.64 (mL/min/1.73m2); Ferritin 610 ng/mL (8-252); Glucose 74 mg/dL (74-106); Magnesium 1.6 mg/dL (1.8-2.4); Potassium 3.7 mmol/L (3.5-5.1); Sodium 138 mmol/L (136-145)
[2021-12-16] MEDS: Letrozole 2.5 MG TAB PO (08:03)
[2021-12-16] MEDS: Pantoprazole 40 MG TABCR PO (08:03)
[2021-12-16] MEDS: Acetaminophen 325 MG TAB PO ×2 (08:03→15:26)
[2021-12-16 08:07] LABS: C-Reactive Protein 16.38 mg/dL (0.0-0.3)
[2021-12-16 08:10] LABS: Vitamin B12 346 pg/mL (193-986)
[2021-12-16] MEDS: Midodrine 2.5 MG TAB 5 MG PO ×3 (09:07→18:05)
--- NOTE | 2021-12-16 09:34 | OT.INIE ---
Occupational Therapy Notes Inpatient Occupational Therapy Evaluation Date: 12/16/21 Referring Doctor:Marimar Garvey MD OT Orders: Non Urgent Precautions: Fall, standard, DNR/DNI PATIENT PROFILE/ADMITTING DIAGNOSIS: Pt is a 61 year old female who was admitted to [facility] through the ED with the following DX of decubitus skin ulcer, chronic anemia, gram negative bactremia, UTI. Past Medical History: All Active Problems?(Updated 12/15/21 @ 19:12 by Marimar Garvey MD) Decubitus skin ulcer (Acute) Discharge planning issues (Acute) DVT prophylaxis (Acute) Chronic anemia (Chronic) Gram-negative bacteremia (Acute) UTI (urinary tract infection) (Acute) Bacteremia (Acute) Medical History?(Updated 12/15/21 @ 19:12 by Marimar Garvey MD) Hyperlipidemia Indwelling Paula catheter present Metastatic breast cancer Neurogenic bladder Non-insulin dependent diabetes mellitus Normocytic normochromic anemia Paraplegia Surgical History?(Updated 12/15/21 @ 19:07 by Marimar Garvey MD) H/O bilateral mastectomy S/P cervical spinal fusion S/P IVC filter Social History/Home Situation: Pt states that she just recently moved her from [place]. She notes that she lives in a private home in [place] with her . She states that she is paraplegia and requires (A) with her ADL/IADL routines. She does note that she is a paraplegia and requires (A) due to this. SUBJECTIVE: Pt states that she is doing better, she reports that she is concerned about her IP thumb extension and her toe on her (R) foot which also seems to be contracted. OBJECTIVE: General Observation: Pleasant and agreeable to OT consult. Pain: no specific c/o pain but discomfort in her (R) thumb and her toe on her (R) foot which seems to be contracted. ROM: RUE Elbow flexion AROM limited into flexion, full extension, fingers and digits able to flex, (R) thumb is in hyperextension at the IP L UE hand/digits into AROM flexion and extension. STRENGTH: RUE NT LUE NT Manual Therapy [id number]: Pt states that a primary concern is her thumb she has increased hyperextension of the IP joint and decreased ability to hold objects in her (R) hand due to this. OT went over ROM Exercises with pt and discussed further splinting with an orthosis to prevent further contracture. BALANCE: Static sitting max (A) support to pts back. SPECIAL TESTS: Daily Activity Limitations Standardized Measure [facility] AM -PAC ?6 clicks? Daily Activity Inpatient Short Form: Raw score: 10 INFORMED CONSENT/EDUCATION: Pt instructed in purpose of OT Consult and plan of care. ASSESSMENT: Patient is a 61-year-old female referred to occupational therapy services with diagnosis of decubitus skin ulcer, chronic anemia, gram negative bactremia, UTI. Patient presents with clinical signs and symptoms consistent with dx, as demonstrated by the following impairment level findings/functional limitations: Pt requires (A) at her baseline level of function for her ADLs due to her paraplegia. She is dependent for dressing, bathing and requires (A) with her eating demands. She states that because she recently moved here she does not have any services in place. OT recommends HH OT to (A) with her ADLs at home. Patient is assessed as a Moderate [id number] complexity based on the following: History: see above Examination: see functional limitations as noted above Presentation: evolving Decision Making: Moderate complexity GOALS Goals x1 week 1. Pt will be able to old objects in her (R) hand without increased pain. 2. Pt will report decreased pain in (R) UE 3. Pt will be (I) and compliant with her HEP for (R) thumb. PLAN OF CARE/TREATMENT PLAN: 1x/day, 5 days/ week x 1week Initiate Occupational Therapy Services for bathing, dressing, grooming, toileting, eating, transfer training. DISCHARGE RECOMMENDATIONS OT recommends that pt return to home with HH services, and outpatient Occupational Therapy services for (R) thumb for orthosis fabrication. OT also recommends consult with podiatry if MD feels that this is appropriate for assessment of her (R) toe and assessment of her toe nails. TREATMENT TIME/MINUTES/CODES 93995, [id number], 30 minutes Stephanie Jacome OTR/[facility] [place], [place]
[2021-12-16] MEDS: Gabapentin 300 MG CAP 600 MG PO (13:46)
--- NOTE | 2021-12-16 14:09 | PT.INIE ---
Date of service: 12/16/21 Time of Service: 01:45 PT Notes Visit Reasons: Sepsis Due to GNR UTI with Bacteremia Inpatient Physical Therapy Evaluation Date: 12/16/2021 Referring Doctor: Marimar Gavrey MD PT Orders: PT CONSULT: Limited ability Precautions: Contact precautions Patient Profile/Admitting Diagnosis: 61 year old female w/ PMHx of metastatic breast cancer metastatic to cervical spine resulting in paraplegia and neurogenic bladder UTI and questionable development of shingles. PMHX: All Active Problems?(Updated 12/15/21 @ 19:12 by Marimar Garvey MD) Decubitus skin ulcer (Acute) Discharge planning issues (Acute) DVT prophylaxis (Acute) Chronic anemia (Chronic) Gram-negative bacteremia (Acute) UTI (urinary tract infection) (Acute) Bacteremia (Acute) Medical History?(Updated 12/15/21 @ 19:12 by Marimar Garvey MD) Hyperlipidemia Indwelling Mancera catheter present Metastatic breast cancer Neurogenic bladder Non-insulin dependent diabetes mellitus Normocytic normochromic anemia Paraplegia Surgical History?(Updated 12/15/21 @ 19:07 by Marimar Garvey MD) H/O bilateral mastectomy S/P cervical spinal fusion S/P IVC filter Social History/Home Situation: Patient recently moved to [place] 5 weeks ago with her , who was originally from the area. is her primary caregiver. She is a daughter, who lives in [place]. She utilizes a Raul lift from bed to wheelchair. She spends her days in manual wheelchair, with elevated head rest and reclined seat. She does not have elevated leg rests - her elevates her legs on pillows to reduce strain to her back. She is dependent on for all mobility, she is unable to manually move her wheelchair due to upper extremity weakness. She has no control of lower extremities, only sensation. No trunk control. Dependent on our nurse to roll her in bed, she has been able to use her upper extremity on rail to hold her position. Indwelling mancera cather for urination, and completes hygiene for her. Patient states she is normally able to move her neck, but today she has been doing a lot of activity with FaceTime with her daughter, and she was provided a bath, fatiguing her neck so she is now unable to move it. Current Functional Limitations: Max A for transfers, self care and mobility in WC. Able to slowly and inefficiently feed herself, brush teeth, etc. see OT note. Equipment Owned/DME: Standard WC with head rest support, reclining seat, no leg support or elevated leg rests. Mancera. Hospital bed without rails. Handicap van Subjective: Struggling with development of hitchhiker's thumb x5 weeks. Looking forward to medical equipment assessed and further services to improve quality of life. Objective: General Observation: Lying in hospital bed, with pressure-relief pillow placement, IV port left hand. Speech is slow, minimal ability to do facial expression. Unable to move neck. She is emotional in regards to her medical status. Mental Status: Alert to person, place, and date. Emotional distress Pain: None reported Vital Signs: BP 95/62 ROM: Right Upper Extremity: Active?40 degrees flexion, abduction unable, IR resting on abdomen, ER unable. Elbow flexion 110 deg, extension 45 degrees Passive?flexion 90 degrees, abduction unable to tolerate, IR 40 degrees, ER 10 degrees, elbow flexion and extension full, wrist extension 30 degrees, flexion 45 degrees, slight contracture of finger flexion Left Upper Extremity: Active?50 degrees flexion, abduction unable, IR resting on abdomen, ER unable. Elbow flexion 110 degrees, extension 45 degrees. Unable to move wrist or left digits due to pain from IV Passive?20 degrees shoulder flexion, abduction unable to tolerate, IR 45 degrees, ER 20 degrees, elbow flexion full, Extension full, defer assessment of left wrist and digits due to IV pain *Patient reports her active motion is usually able to achieve 90 degrees shoulder flexion, but feeling weak due to consequence of UTI Right Lower Extremity: Unable to perform active movement due to paraplegia Passive hip flexion 90 degrees, knee extension 0 degrees, knee flexion 120 degrees, hip ER 45 degrees, hip IR 40 degrees, extension 0 degrees Left Lower Extremity: Unable to perform active movement due to paraplegia Passive hip flexion 90 degrees, knee extension 0 degrees, knee flexion 120 degrees, hip ER 45 degrees, hip IR 40 degrees, extension 0 degrees Strength: Right Upper Extremity: Bicep/tricep 4/5, shoulder flexion 3/5 in above documented range of motion, 2/5 IR/ER, wrist flexion extension 3/5, digit flexion extension 3/5 Left Upper Extremity: Bicep/tricep 4/5, shoulder flexion 3/5 in above documented range of motion, 2/5 IR/ER, wrist flexion/extension 3/5, digit flexion/extension 3/5 Right Lower Extremity: 0/5, slight trace of toe movement Left Lower Extremity: 0/5, slight trace of toe movement Sensation: Intact throughout all extremities Bed Mobility/Transfers: Raul lift for all transfers Gait: Unable Balance: Poor, unable to do any static sitting due to trunk motor control loss Special Tests: Mobility Limitations Standardized Measure [facility] AM-PAC 6 clicks Basic Mobility Inpatient Short Form: 100% disability Informed Consent/Education: Patient instructed in purpose of PT consult and plan of care. Assessment: Patient is a 61year old female referred to physical therapy services with the diagnosis of limited ability, with recent inpatient admission due to complications of UTI with pre-existing paraplegia as a result of metastasis of C-spine from breast cancer in May 2021. Anticipated discharge tomorrow, with patient currently presenting at premorbid level of Raul lift function, so further inpatient PT not warranted. I am concerned that patient is not being allowed her best ability to perform MRADL with current standard WC. She does have upper extremity use, sufficient enough to be able to manipulate a motorized power wheelchair, which would allow for improvement of MRADLs. Patient's current standard wheelchair also does not have elevated leg rests, allowing for biomechanical strain to her low back when reclined. She will require home health PT evaluation for most appropriate wheelchair equipment assessment to improve her quality of life and safety with prolonged sitting in her chair, and to improve mobility. Patient's medical disability also deems her appropriate for further home health service in regards to physical therapy and Occupational Therapy, to improve upper extremity use for manipulation of powered wheelchair, maintain her current self-care abilities, and limit joint contractures. Patient is assessed as a High 54771 complexity based on the following: History: See above medical history Examination: Paraplegia Presentation: Unstable Decision Making: Moderate Plan of Care/Treatment Plan: Patient discharged from inpatient PT care, due to anticipated discharge home tomorrow and current achievement of premorbid level of status of Raul lift capability. See above assessment for home health recommendations and further equipment needs. TREATMENT CODE/TIME: 77377
--- NOTE | 2021-12-16 14:11 | W.NUTCONSULT ---
Date of service: 12/16/21 Time of Service: 14:11 Nutritional Consult ASSESSMENT: Wanda admitted with UTI with hx of metastatic breast cancer to cervical spine resulting in paraplegia and decubitus skin ulcer. Unable to meet with pt today however, would benefit from additional nutrients to treat pressure wound. Following regular meal plan with suboptimal adequate intake Estimated Needs: 2060-0022 kcal, 80-90 g protein, 2000 ml fluid NUTRITIONAL DIAGNOSIS: Increased nutrient needs for optimal healing of pressure wound. INTERVENTION: Continue regular meal plan 1 oz Liquid protein TID MVI 500 mg Vit C BID 220 mg Zinc sulfate qd MONITORING AND EVALUATION: will monitor po intake, labs, weight Time Spent in Nutritional Counseling and Treatment: 0
[2021-12-16] MEDS: levoFLOXacin 750 MG/150 ML BAG 100 MG IVPB (15:27)
[2021-12-16] MEDS: Normal Saline Flush 10 ML SYR IVP (15:28)
--- NOTE | 2021-12-16 18:20 | NUR.NOTE ---
Per MD order, splint applied by PT's directions. PT reports she has sensation and will report any discomfort or tightness.)Nursing Note:
--- NOTE | 2021-12-16 18:51 | W.PM.PROGNOT ---
Date of Service Date of service: 12/16/21 Time of Service: 18:52 Assessment and Plan Assessment and plan (1) Gram-negative bacteremia: Status: Acute Assessment and plan: Due to GNR UTI, present on admission. Original blood cultures have not yet speciated. Repeat blood cultures are negative. Would continue levofloxacin since CRP is coming down and blood cultures have cleared. Will monitor procalcitonin and CRP. Await further blood culture information. Mancera catheter exchanged. US renal negative (2) UTI (urinary tract infection): Status: Acute Assessment and plan: As above (3) Chronic anemia: Status: Chronic Assessment and plan: Has evidence of B12 deficiency. Replete. (4) Non-insulin dependent diabetes mellitus: Assessment and plan: A1C 6.4., diet controlled. Continue Carb consistent diet. (5) Neurogenic bladder: Assessment and plan: Mancera catheter exchanged in the ED. Will ensure the patient has the resources in the community to assist with the monthly amncera catheter changes. (6) Metastatic breast cancer: Assessment and plan: Continue home letrozole. Consult palliative care. (7) Decubitus skin ulcer: Status: Acute Assessment and plan: Wound care consulted (8) DVT prophylaxis: Status: Acute Assessment and plan: The patient is on full dose pradaxa prophylactically since her neck surgery this winter. I have requested records from the [facility] in [place], [place], to clarify the duration of therapy. (9) Discharge planning issues: Status: Acute Assessment and plan: Full code PT, OT, palliative care consulted. Will need home health on d/c. Subjective Subjective Interval history since last seen: Ms Back states that she is actually feeling better. She has been febrile most of the day today. She denies dizziness, chest pain, shortness of breath, nausea. Nursing noted blisters on her posterior upper thorax/axilla. The patient reports that her left hand is sore because of the position she had to keep it in since she has an IV in place. She also reports that her right hitchhiker's thumb is sticking back up and is wondering if there is a splint that could help her. Exam Narrative Exam Narrative: General: Very pleasant Middle-aged female who is in bed, laying with a towel over her head, A&Ox3, NAD HEENT: EOMI, MMM Cardiovascular: RRR, no m/r/g Lungs: CTAB anteriorly Gastrointestinal: soft, nontender, nondistended Genitourinary: has a mancera Extremities: no edema BLEs, +1 pedal pulses B; able to slightly move toes on B feet. Palmar surface left hand does appear to have several erythematous areas Skin: several blisters c/w sweating/friction injury on R upper posterior thorax. Objective Last Vital Signs Temp 37.7 C H 12/16/21 18:10 Pulse 76 12/16/21 15:19 Resp 16 12/16/21 15:19 BP 134/85 12/16/21 15:19 Pulse Ox 96 12/16/21 15:19 Laboratory Results - last 24 hr 12/16/21 12/16/21 12/16/21 06:40 06:40 06:40 WBC 4.44 RBC 3.78 L Hgb 10.4 L Hct 31.0 L MCV 82 MCH 27.5 MCHC 33.5 RDW 14.1 Plt Count 161 MPV 9.9 Immature Gran % 0.7 Neutrophils % 75.7 Lymphocytes % 15.5 Monocytes % 7.4 Eosinophils % 0.5 Basophils % 0.2 Nucleated RBC % 0.0 Absolute Neutrophils 3.36 Absolute Lymphocytes 0.69 L Absolute Monocytes 0.33 Absolute Eosinophils 0.02 Absolute Basophils 0.01 Sodium 138 Potassium 3.7 Chloride 100 Carbon Dioxide 27.5 Anion Gap 10.5 BUN 10 Creatinine 0.5 L Est GFR (CKD-EPI 2020) 106.64 Glucose 74 Hemoglobin A1c Calcium 8.6 Magnesium 1.6 L Iron 18 L TIBC 153 L Transferrin % Sat 12 L Ferritin 610 H C-Reactive Protein 16.38 H Vitamin B12 Folate 12/16/21 12/16/21 06:40 06:40 WBC RBC Hgb Hct MCV MCH MCHC RDW Plt Count MPV Immature Gran % Neutrophils % Lymphocytes % Monocytes % Eosinophils % Basophils % Nucleated RBC % Absolute Neutrophils Absolute Lymphocytes Absolute Monocytes Absolute Eosinophils Absolute Basophils Sodium Potassium Chloride Carbon Dioxide Anion Gap BUN Creatinine Est GFR (CKD-EPI 2020) Glucose Hemoglobin A1c 6.4 H Calcium Magnesium Iron TIBC Transferrin % Sat Ferritin C-Reactive Protein Vitamin B12 346 Folate 14.0
[2021-12-16] MEDS: Protein Nutritional Supplement 16 GM 1 OUNCE PACKET PO (20:39)
[2021-12-17] VITALS (7 sets, daily range): BP systolic 95–127; BP diastolic 61–82; PULSE 65–86; RESP 16–18; TEMP 36.8–38.2; O2SAT 94–97
[2021-12-17] MEDS: Acetaminophen 325 MG TAB PO (03:25)
[2021-12-17 07:21] LABS: Abs Immature Grans 0.03 10^3/uL (0.0-0.06); Absolute Basophil Count 0.01 10^3/uL (0.0-0.2); Absolute Eosinophil Count 0.03 10^3/uL (0.0-0.7); Absolute Lymphocyte Count 0.98 10^3/uL (1.2-3.4); Absolute Monocyte Count 0.33 10^3/uL (0.1-0.8); Absolute Neutrophil Count 2.14 10^3/uL (1.2-6.7); Basophils % 0.3; Eosinophils % 0.9; HCT 29.3 % (36.0-46.0); HGB 9.5 g/dL (11.2-15.7); Immature Grans % 0.9; Lymphocytes % 27.8; MCH 26.6 pg (27.0-33.0); MCHC 32.4 % (32.0-36.0); MCV 82 fL (80-95); MPV 9.4 fL (8.0-11.0); Monocytes % 9.4; Neutrophils % 60.7; Platelet Count 177 10^3/uL (130-400); RBC 3.57 10^6/uL (3.93-5.22); RDW 13.9 % (11.7-14.6); RDW-SD 41.9 fL; WBC 3.52 10^3/uL (4.4-10.8)
[2021-12-17 07:39] LABS: Anion Gap 8.8 mmol/L (3-11); BUN 10 mg/dL (7-18); C-Reactive Protein 10.49 mg/dL (0.0-0.3); CO2 27.2 mmol/L (21.0-32.0); CREATININE 0.6 mg/dL (0.55-1.02); Calcium 8.6 mg/dL (8.5-10.1); Chloride 101 mmol/L (98-107); Estimated GFR 102.06 (mL/min/1.73m2); Glucose 87 mg/dL (74-106); Magnesium 1.7 mg/dL (1.8-2.4); Sodium 137 mmol/L (136-145)
--- NOTE | 2021-12-17 08:03 | PDOC.CMIN ---
- If Service Date Differs Date of service: 12/17/21 Time of Service: 08:03 Care Management Initial Assess REASON FOR HOSPITALIZATION:: Sepsis, UTI PAST MEDICAL HISTORY/PAST SURGICAL HISTORY:: Ms Back is a 61 year old female w/ PMHx of metastatic breast cancer metastatic to cervical spine resulting in paraplegia and neurogenic bladder, s/p indwelling mancera, as well as h/o IVC filter (prophylactic), T2DM (noninsulin dependent, diet controlled). Medical History (Updated 12/15/21 @ 19:12 by Marimar Garvey MD). Hyperlipidemia. Indwelling Mancera catheter present. Metastatic breast cancer. Neurogenic bladder. Non-insulin dependent diabetes mellitus. Normocytic normochromic anemia. Paraplegia. Surgical History (Updated 12/15/21 @ 19:07 by Marimar Garvey MD). H/O bilateral mastectomy. S/P cervical spinal fusion. S/P IVC filter PREVIOUS FUNCTIONAL STATUS/SOCIAL/FAMILY SUPPORTS:: Wanda recently moved to [facility], seven weeks ago with her , Raulito. She shares that this was their alf plan. 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 Raulito worked for the [employer]. She reports they bought a forest near the [facility] and moved to [place] about seven weeks ago. Raulito has family locally and his brother is visiting from [place], helping them to get settled. Wanda has metastatic breast cancer and reports having a spinal surgery with tumor removal that left her without feeling from the chest down. She is able to wiggle a few toes, and move her fingers, but she reports having a contracture, hiking thumb that is causing pain in the muscles of her arm and other fingers. She shares a strong sari, network of zoroastrianism support and reports that her is her rock that helps with all of her care needs and brings katherine and enrichment to her life. They recently enjoyed going to the [facility] [employer] and like exploring the trails on their land. Raulito cleans and manages Wanda's catheter but it is usually changed by home health nursing which has yet to be set up in [place]. She requests support with seeking and securing services locally. CURRENT FUNCTIONAL STATUS:: Wanda is lying in bed, and is repositioned by staff with CM present. She is gracious in interaction, forthcoming with information, and CM notes her strengths and demeanor. Wanda shares much love and appreciation for her , and his ability to care for her, and their home. She reports he makes a super food juice for her every morning which she attributes to stopping tumor growth. ADVANCE DIRECTIVES:: None on file; Palliative Consult initiated. Has patient been provided with info about the portal/API?: Yes Did the patient sign up for the portal?: No CODE STATUS:: DNR/DNI CODE STATUS COMMENT:: I know my name is written in the book of life, and I will either live here for a short time, or in [place] for ever INSURANCE COVERAGE / FINANCIAL ISSUES:: BC/BS FEP. Additional options reviewed and provided including MCR/Disability and LTC Medicaid CURRENT HOME/COMMUNITY SERVICES/EQUIPMENT:: Medical Bed, Raul Lift, Wheelchair, Specialized Mobility Van PRIMARY CARE PHYSICIAN:: Scheduled with Dr. Zimmerman POTENTIAL DISCHARGE NEEDS:: Service connection, review of supports, JE and COA referrals, Palliative Care. Potential L/T IV ABX course; awaiting sensitivities and recommended course of treatment. New home health orders; need to request Dr. Zimmerman to follow as he has not yet met Wanda. PATIENT/FAMILY EDUCATION NEEDS:: Review of community based supports; CM reviewed resources and provided packet and LTM application. Review of discharge considerations and self care needs upon discharge Ask Me Three ANTICIPATED BARRIERS TO DISCHARGE:: Treatment course-L/T ABX and service coordination tasks. TRANSPORTATION:: Via private specialized mobility van, with her Raulito. PLAN:: Awaiting cultures and ABX course recommendations. Wanda identified needs for home health RN/PT/OT, and would also like support linking to services. She has a first PCP appointment with Dr. Zimmerman at [facility] on 12/21/21. She would also like a bedside table and discussed a motorized wheelchair with PT as well. She will transport home with Raulito in their specialized van.
[2021-12-17] MEDS: Zinc Sulfate 220 MG TAB PO (10:53)
[2021-12-17] MEDS: Multivitamin TAB 1 TAB PO (10:53)
[2021-12-17] MEDS: Midodrine 2.5 MG TAB 5 MG PO ×3 (10:55→18:47)
[2021-12-17] MEDS: Pantoprazole 40 MG TABCR PO (10:56)
[2021-12-17] MEDS: Cyanocobalamin 500 MCG TAB 1000 MCG PO (10:56)
[2021-12-17] MEDS: Letrozole 2.5 MG TAB PO (10:56)
[2021-12-17] MEDS: Ascorbic Acid 500 MG TAB PO ×2 (10:56→20:13)
[2021-12-17] MEDS: Normal Saline Flush 10 ML SYR IVP ×3 (10:57→20:13)
[2021-12-17] MEDS: Protein Nutritional Supplement 16 GM 1 OUNCE PACKET PO ×3 (10:57→20:13)
--- NOTE | 2021-12-17 11:01 | WOUNDCONS ---
- If Service Date Differs Date of service: 12/17/21 Time of Service: 11:02 Wound Initial Evaluation Narrative: Patient is a 61 yof. She recently moved here from [place], she has not established PCP coverage as of yet. She was called back to the ED yesterday after Microbiology showed she was growing Gram negative rods in her urine. Patient has a hx significant fo breast cancer with yesy to the spine which has resulted in her being a paraplegic since May of this year. Other items to note She has NIDDM, and a neurogenic bladder, with mancera being changed yesterday in the ED. Patient presents with 3 areas of pressure. An old area on the right ischium that is nearly closed over. Then a new area on the sacrum, and left ischium. Patient felt these have been present for about 9 weeks, which was two weeks prior to her traveling cross country from [place] to here. Discussed goals of treatment with the patient. She consents to the treatment and signs consent. Reviewed Labs today, notable; H&H 9.6- 29.3 KCL 3.0 Mag 1.7 CRP 10.49, which has trended down. Discussed off-loading pressure with the patient and her . She stated she has a pressure relieving w/c that helps her off-load pressure while in the chair. It is explained to the patient that these wounds can start in a small matter of time, and pressure must be off-loaded every 2 hours. Patient was not aware of this . - Wound Left Posterior Thigh Wound Type: Pressure Ulcer (Ischium) Pressure Ulcer Stage: III Wound General Appearance: Reddened, Blackened, Draining, Bleeding, Necrotic, Unapproximated Wound Bed Greatest Portion: Black (Eschar) Wound Bed Lesser Portion: Red (Granulation) Wound Surrounding Tissue Appearance: Normal/Healthy Percent of Wound Bed Granulated/Red: 40 Percent of Wound Bed Slough/Yellow: 10 Percent of Wound Bed Eschar/Black: 50 Wound Length: 7.3 cm Wound Width: 3 cm Wound Depth: 0.3 cm Wound Drainage Amount: Minimal Wound Drainage Odor: None/Absent Wound Drainage Description: Bloody Wound Topical Solution/Irrigant: Antibiotic Irrigant Wound Debridement Method: Gauze Wound Debridement Result: Healthy Tissue Revealed Wound Debridement Amount of Tissue Removed: Minimal Lumbar/Sacral Wound Type: Pressure Ulcer Pressure Ulcer Stage: II Wound General Appearance: Reddened, Draining, Bleeding, Unapproximated Wound Bed Greatest Portion: Red (Granulation) Wound Bed Lesser Portion: Pale [place] Wound Surrounding Tissue Appearance: Normal/Healthy Percent of Wound Bed Granulated/Red: 80 Wound Length: 4.9 cm Wound Width: 4.9 cm Wound Depth: 0.2 cm Wound Drainage Amount: Moderate Wound Drainage Odor: None/Absent Wound Drainage Description: Bloody Wound Topical Solution/Irrigant: Antibiotic Irrigant Wound Debridement Method: Gauze Wound Debridement Result: Healthy Tissue Revealed Wound Debridement Amount of Tissue Removed: Moderate - Circulation, Sensation, Motion Peripheral Pulse Strength: Normal Capillary Refill: Less than 3 seconds Skin Temperature: Warm Skin Color: Normal (Foot drop noted bilaterally) - Pain Pain Level: 0 (very little sensation below the chest) Pain Scale Used: Visual Analog Scale 0-10 Patient who has recently moved here from [place]. Besides having a complicated UTI, she has two new pressure areas, also showed me two areas of intact blisters, photo taken, not doing anything for treatment for them. She also was noted to have foot drop. Heel booties were applied to them. Discussed with patient and spouse, the need to offload pressure every 2 hours. Nutrition including the need to have increased protein were discussed. Also options for after care were discussed, such as home health. Answered all of their questions. - Photo Photo: - Treatment/Dressing Change Topicals/Ointments: Santyl, Other (Triad) Cleanse With: Anasept Dressing Types: Adaptic (Contact Layer), Hydrocollid (Duoderm), Mepilex w/Border, Skin Prep - Recomendation Recomendation:: Left Ischium: [place] with Anasept. Allow to dwell for 2 minutes. Pat dry with gauze. Apply skin prep to the sergei wound skin. Apply a nickel thickness of Santyl to the wound bed. Apply adaptic over Santyl. Cover with Meplilex. Encourage patient to off-load pressure. Change every other day or PRN. Sacrum: [place] wound bed with Anasept spray and allow to dwell for 2 minutes. Debride with gauze. Apply skin prep to the sergei wound skin. Apply Triad to the wound bed. Cover with Duoderm. Encourage patient to off-load pressure Change every other day or PRN. Heels. Apply Heel booties to both feet as patient can tolerate, elevate as tolerated Physcian/Nurse Practioner Notified: Yes (Dr. Golden) Referrals: Dietary (request consult) Treatment Time - Patient Will be Seen Weekly Treatment: 3x/wk - For: For:: 1 week
[2021-12-17] MEDS: IMIPENEM/CILASTATIN 500 MG in Normal Saline 100 ML 200 MG IVPB ×2 (14:27→20:12)
[2021-12-17] MEDS: Potassium Chloride 20 MEQ TABCR PO ×2 (14:36→20:13)
--- NOTE | 2021-12-17 16:18 | W.PM.PROGNOT ---
Date of Service Date of service: 12/17/21 Time of Service: 16:19 Assessment and Plan Assessment and plan (1) Gram-negative bacteremia: Status: Acute Assessment and plan: Due to klebsiella pneumonia; ESBL growing in initial blood cultures. Resistant to Levaquin that she is currently prescribed. Repeat blood cultures are negative. Begin primaxin with a plan to treat for 2-3 days and then change to fosfomycin, if repeat blood cultures turn negative. Will monitor procalcitonin and CRP. Mancera catheter exchanged. US renal negative (2) UTI (urinary tract infection): Status: Acute Assessment and plan: As above (3) Chronic anemia: Status: Chronic Assessment and plan: Has evidence of B12 deficiency. Replete. Monitor (4) Non-insulin dependent diabetes mellitus: Assessment and plan: A1C 6.4., diet controlled. Continue Carb consistent diet. (5) Neurogenic bladder: Assessment and plan: Mancera catheter exchanged in the ED. Will ensure the patient has the resources in the community to assist with the monthly mancera catheter changes. (6) Metastatic breast cancer: Assessment and plan: Continue home letrozole. Consult palliative care. (7) Decubitus skin ulcer: Status: Acute Assessment and plan: Wound care consulted and appreciated. Her was present and discussed plan of care for her wounds with wound care nurse. (8) DVT prophylaxis: Status: Acute Assessment and plan: The patient is on full dose pradaxa prophylactically since her neck surgery this winter. I have requested records from the [facility] in [place], [place], to clarify the duration of therapy. (9) Discharge planning issues: Status: Acute Assessment and plan: Full code PT, OT, palliative care consulted. Will need home health on d/c. Subjective Subjective Patient reports: no new complaints, tolerating a regular diet and afebrile; denies nausea, vomiting or shortness of breath Exam Narrative Exam Narrative: General: Very pleasant Middle-aged female who is in bed. Conversant. NAD. Cardiovascular: RRR, no murmur Lungs: CTAB anteriorly Gastrointestinal: soft, nontender, nondistended Genitourinary: has a mancera Extremities: no edema BLEs, no calf tenderness. Skin: several blisters c/w sweating/friction injury on R upper posterior thorax. See wound care note describing sacral and ischial area pressure ulcers. Objective Last Vital Signs Temp 36.9 C 12/17/21 07:30 Pulse 69 12/17/21 07:30 Resp 16 12/17/21 07:30 BP 127/80 12/17/21 07:30 Pulse Ox 96 12/17/21 07:30 Laboratory Results - last 24 hr 12/17/21 12/17/21 06:50 06:50 WBC 3.52 L RBC 3.57 L Hgb 9.5 L Hct 29.3 L MCV 82 MCH 26.6 L MCHC 32.4 RDW 13.9 Plt Count 177 MPV 9.4 Immature Gran % 0.9 Neutrophils % 60.7 Lymphocytes % 27.8 Monocytes % 9.4 Eosinophils % 0.9 Basophils % 0.3 Nucleated RBC % 0.0 Absolute Neutrophils 2.14 Absolute Lymphocytes 0.98 L Absolute Monocytes 0.33 Absolute Eosinophils 0.03 Absolute Basophils 0.01 Sodium 137 Potassium 3.0 L Chloride 101 Carbon Dioxide 27.2 Anion Gap 8.8 BUN 10 Creatinine 0.6 Est GFR (CKD-EPI 2020) 102.06 Glucose 87 Calcium 8.6 Magnesium 1.7 L C-Reactive Protein 10.49 H
[2021-12-17] MEDS: Magnesium Oxide 400 MG TAB PO (21:21)
[2021-12-17] MEDS: Gabapentin 300 MG CAP 600 MG PO (21:21)
[2021-12-18] VITALS (8 sets, daily range): BP systolic 96–136; BP diastolic 57–86; PULSE 77–96; RESP 16–17; TEMP 36.7–37.8; O2SAT 95–100
[2021-12-18] MEDS: IMIPENEM/CILASTATIN 500 MG in Normal Saline 100 ML 200 MG IVPB ×4 (01:33→20:20)
[2021-12-18] MEDS: Normal Saline 500 ML 30 ML IV ×2 (04:54→20:21)
[2021-12-18] MEDS: Gabapentin 300 MG CAP 600 MG PO ×3 (06:06→20:21)
[2021-12-18 06:54] LABS: Abs Immature Grans 0.02 10^3/uL (0.0-0.06); Absolute Basophil Count 0.01 10^3/uL (0.0-0.2); Absolute Eosinophil Count 0.09 10^3/uL (0.0-0.7); Absolute Lymphocyte Count 1.17 10^3/uL (1.2-3.4); Absolute Monocyte Count 0.31 10^3/uL (0.1-0.8); Absolute Neutrophil Count 2.07 10^3/uL (1.2-6.7); Basophils % 0.3; Eosinophils % 2.5; HCT 29.8 % (36.0-46.0); HGB 9.5 g/dL (11.2-15.7); Immature Grans % 0.5; Lymphocytes % 31.9; MCH 26.4 pg (27.0-33.0); MCHC 31.9 % (32.0-36.0); MCV 83 fL (80-95); MPV 9.1 fL (8.0-11.0); Monocytes % 8.4; Neutrophils % 56.4; Platelet Count 207 10^3/uL (130-400); RDW 14.1 % (11.7-14.6); RDW-SD 42.6 fL; WBC 3.67 10^3/uL (4.4-10.8)
[2021-12-18 07:23] LABS: Anion Gap 8.6 mmol/L (3-11); BUN 11 mg/dL (7-18); C-Reactive Protein 8.01 mg/dL (0.0-0.3); CO2 26.4 mmol/L (21.0-32.0); CREATININE 0.5 mg/dL (0.55-1.02); Calcium 8.6 mg/dL (8.5-10.1); Chloride 105 mmol/L (98-107); Estimated GFR 106.64 (mL/min/1.73m2); Glucose 112 mg/dL (74-106); Potassium 3.6 mmol/L (3.5-5.1); Sodium 140 mmol/L (136-145)
[2021-12-18 07:47] LABS: Procalcitonin 0.3 ng/mL
[2021-12-18] MEDS: Cyanocobalamin 500 MCG TAB 1000 MCG PO (10:02)
[2021-12-18] MEDS: Midodrine 2.5 MG TAB 5 MG PO ×3 (10:02→18:49)
[2021-12-18] MEDS: Multivitamin TAB 1 TAB PO (10:03)
[2021-12-18] MEDS: Pantoprazole 40 MG TABCR PO (10:03)
[2021-12-18] MEDS: Ascorbic Acid 500 MG TAB PO ×2 (10:03→20:21)
[2021-12-18] MEDS: Letrozole 2.5 MG TAB PO (10:03)
[2021-12-18] MEDS: Potassium Chloride 20 MEQ TABCR PO ×2 (10:03→20:21)
[2021-12-18] MEDS: Zinc Sulfate 220 MG TAB PO (10:03)
[2021-12-18] MEDS: Protein Nutritional Supplement 16 GM 1 OUNCE PACKET PO ×3 (10:04→20:21)
[2021-12-18] MEDS: Normal Saline Flush 10 ML SYR IVP (10:06)
--- NOTE | 2021-12-18 13:36 | PGE_ITS ---
Date of Service Date of service: 12/18/21 Time of Service: 13:38 Assessment and Plan Assessment and plan (1) Gram-negative bacteremia: Status: Acute Assessment and plan: Due to klebsiella pneumonia; ESBL growing in initial blood cultures. Resistant to Levaquin that she was initially prescribed. Repeat blood cultures are negative. On Primaxin. Fosfomycin was considered for use after several days of PRimaxin, but K. pneumoniae can hydrolyze fosfomycin and lead to failure. Procalcitonin has decreased from 0.8 to 0.3. CRP trending downward. Mancera catheter exchanged. US renal negative (2) UTI (urinary tract infection): Status: Acute Assessment and plan: As above (3) Chronic anemia: Status: Chronic Assessment and plan: Has evidence of B12 deficiency. Replete. Monitor (4) Non-insulin dependent diabetes mellitus: Assessment and plan: A1C 6.4., diet controlled. Continue Carb consistent diet. (5) Neurogenic bladder: Assessment and plan: Mancera catheter exchanged in the ED. Will ensure the patient has the resources in the community to assist with the monthly mancera catheter changes. (6) Metastatic breast cancer: Assessment and plan: Continue home letrozole. Consult palliative care. (7) Decubitus skin ulcer: Status: Acute Assessment and plan: Wound care consulted and appreciated. Her was present and discussed plan of care for her wounds with wound care nurse. (8) DVT prophylaxis: Status: Acute Assessment and plan: The patient is on full dose pradaxa prophylactically since her neck surgery this winter. I have requested records from the [facility] in [place], [place], to clarify the duration of therapy. (9) Discharge planning issues: Status: Acute Assessment and plan: Full code PT, OT, palliative care consulted. Will need home health but, given the resistance pattern of the infectious agent, she will require 2 weeks of IV antibiotics. Swingbed vs SNF. Subjective Subjective Patient reports: no new complaints, tolerating a regular diet and afebrile; denies nausea or vomiting Exam Narrative Exam Narrative: General: Very pleasant Middle-aged female who is in bed. Conversant. NAD. Cardiovascular: RRR, no murmur Lungs: CTAB anteriorly Gastrointestinal: soft, nontender, nondistended Genitourinary: has a mancera Extremities: no edema BLEs, no calf tenderness. Skin: See wound care note describing sacral and ischial area pressure ulcers. Objective Last Vital Signs Temp 37.2 C 12/18/21 11:56 Pulse 77 12/18/21 11:56 Resp 16 12/18/21 11:56 BP 122/80 12/18/21 11:56 Pulse Ox 97 12/18/21 11:56 Laboratory Results - last 24 hr 12/18/21 12/18/21 12/18/21 06:35 06:35 06:35 WBC 3.67 L RBC 3.60 L Hgb 9.5 L Hct 29.8 L MCV 83 MCH 26.4 L MCHC 31.9 L RDW 14.1 Plt Count 207 MPV 9.1 Immature Gran % 0.5 Neutrophils % 56.4 Lymphocytes % 31.9 Monocytes % 8.4 Eosinophils % 2.5 Basophils % 0.3 Nucleated RBC % 0.0 Absolute Neutrophils 2.07 Absolute Lymphocytes 1.17 L Absolute Monocytes 0.31 Absolute Eosinophils 0.09 Absolute Basophils 0.01 Sodium 140 Potassium 3.6 Chloride 105 Carbon Dioxide 26.4 Anion Gap 8.6 BUN 11 Creatinine 0.5 L Est GFR (CKD-EPI 2020) 106.64 Glucose 112 H Calcium 8.6 C-Reactive Protein 8.01 H Procalcitonin 0.3
[2021-12-18] MEDS: Magnesium Oxide 400 MG TAB PO (20:22)
[2021-12-19] MEDS: IMIPENEM/CILASTATIN 500 MG in Normal Saline 100 ML 200 MG IVPB ×4 (01:34→22:05)
[2021-12-19 03:41] VITALS: BP 115/81; PULSE 95; RESP 16; TEMP 37.6; O2SAT 95
[2021-12-19] MEDS: Gabapentin 300 MG CAP 600 MG PO ×3 (06:43→22:04)
[2021-12-19 08:26] VITALS: BP 109/76; PULSE 103; RESP 18; TEMP 37.4; O2SAT 93
[2021-12-19] MEDS: Potassium Chloride 20 MEQ TABCR PO ×2 (09:26→22:03)
[2021-12-19] MEDS: Ascorbic Acid 500 MG TAB PO ×2 (09:26→22:04)
[2021-12-19] MEDS: Normal Saline Flush 10 ML SYR IVP (09:27)
[2021-12-19] MEDS: Multivitamin TAB 1 TAB PO (09:27)
[2021-12-19] MEDS: Pantoprazole 40 MG TABCR PO (09:27)
[2021-12-19] MEDS: Protein Nutritional Supplement 16 GM 1 OUNCE PACKET PO ×3 (09:27→22:05)
[2021-12-19] MEDS: Midodrine 2.5 MG TAB 5 MG PO ×3 (09:28→22:04)
[2021-12-19] MEDS: Zinc Sulfate 220 MG TAB PO (09:28)
[2021-12-19] MEDS: Letrozole 2.5 MG TAB PO (09:28)
[2021-12-19] MEDS: Cyanocobalamin 500 MCG TAB 1000 MCG PO (09:29)
[2021-12-19 11:31] VITALS: BP 108/74; PULSE 91; RESP 17; TEMP 36.9; O2SAT 96
--- NOTE | 2021-12-19 17:01 | PDOC.CMPRO ---
- If Service Date Differs Date of service: 12/19/21 Time of Service: 17:06 Care Management Progress Note S/O: Wanda was lying in bed, CM supported her in speaking over the phone with her insurance company, to enable her to authorize coordination of Swing Bed care. MJ AA completed prior authorization once verbal consent was provided by Wanda to BC/BS FED; anticipate status change today or tomorrow. Wanda remains gracious in interaction. CM continues to follow. A: 61 year old female admitted to [facility] 12/15/21 for Sepsis due to GNR UTI with bacteremia P: Wanda will enter SWB1 for PT/OT/IV ABX when ready per MD. CM continues to follow and support discharge planning considerations.
--- NOTE | 2021-12-19 18:26 | W.PM.PROGNOT ---
Date of Service Date of service: 12/19/21 Time of Service: 18:26 Assessment and Plan Assessment and plan (1) Gram-negative bacteremia: Status: Acute Assessment and plan: Due to klebsiella pneumonia; ESBL growing in initial blood cultures. Resistant to Levaquin that she was initially prescribed. Repeat blood cultures are negative. On Primaxin. Procalcitonin has decreased from 0.8 to 0.3. CRP trending downward. Mancera catheter exchanged. US renal negative (2) UTI (urinary tract infection): Status: Acute Assessment and plan: As above (3) Chronic anemia: Status: Chronic Assessment and plan: Has evidence of B12 deficiency. Replete. Monitor (4) Non-insulin dependent diabetes mellitus: Assessment and plan: A1C 6.4., diet controlled. Continue Carb consistent diet. (5) Neurogenic bladder: Assessment and plan: Mancera catheter exchanged in the ED. Will ensure the patient has the resources in the community to assist with the monthly mancera catheter changes. (6) Metastatic breast cancer: Assessment and plan: Continue home letrozole. Consult palliative care. (7) Decubitus skin ulcer: Status: Acute Assessment and plan: Wound care consulted and appreciated. Her was present and discussed plan of care for her wounds with wound care nurse. (8) DVT prophylaxis: Status: Acute Assessment and plan: The patient is on full dose pradaxa prophylactically since her neck surgery this winter. I have requested records from the [facility] in [place], [place], to clarify the duration of therapy. (9) Discharge planning issues: Status: Acute Assessment and plan: Full code PT, OT, palliative care consulted. Planning swingbed status to complete a 2 week course of Primaxin. Pt is agreeable. Subjective Subjective Patient reports: no new complaints, tolerating a regular diet and afebrile; denies diarrhea, nausea, vomiting or shortness of breath Exam Narrative Exam Narrative: General: Very pleasant Middle-aged female who is in bed. Conversant. NAD. Cardiovascular: RRR, no murmur Lungs: CTAB anteriorly Gastrointestinal: soft, nontender, nondistended Genitourinary: has a mancera Extremities: no edema BLEs, no calf tenderness. Skin: See wound care note describing sacral and ischial area pressure ulcers. Objective Last Vital Signs Temp 36.9 C 12/19/21 11:31 Pulse 91 H 12/19/21 11:31 Resp 17 12/19/21 11:31 BP 108/74 12/19/21 11:31 Pulse Ox 96 12/19/21 11:31
--- NOTE | 2021-12-19 18:34 | NUR.NOTE ---
Nursing Note:Discussed midline placement with patient, she requested to wait until current iv was no longer useful. MD scales
[2021-12-19 19:41] VITALS: BP 124/86; PULSE 86; RESP 16; TEMP 37.8; O2SAT 97
[2021-12-19] MEDS: Magnesium Oxide 400 MG TAB PO (22:04)
[2021-12-19 23:25] VITALS: BP 116/83; PULSE 88; RESP 16; TEMP 36.7; O2SAT 96
[2021-12-20] MEDS: IMIPENEM/CILASTATIN 500 MG in Normal Saline 100 ML 200 MG IVPB ×3 (02:13→14:50)
[2021-12-20] MEDS: Normal Saline Flush 10 ML SYR IVP ×2 (02:21→10:27)
[2021-12-20 02:57] VITALS: BP 100/70; PULSE 82; RESP 16; TEMP 36.8; O2SAT 93
[2021-12-20 03:33] VITALS: BP 109/76; PULSE 89; RESP 18; TEMP 37; O2SAT 97
[2021-12-20] MEDS: Gabapentin 300 MG CAP 600 MG PO ×2 (05:28→15:31)
[2021-12-20 08:26] VITALS: BP 103/73; PULSE 107; RESP 17; TEMP 37; O2SAT 95
--- NOTE | 2021-12-20 09:58 | W.DIABETESNO ---
Date of service: 12/20/21 Time of Service: 09:58 Diabetes Note Reason for Visit: DM, wound NOTE: Wanda is meeting 100% micro and macro nutrient needs for weight maintenance and optimal wound healing. Appetite very good and taking needed supplements without issue per nursing. Will continue to follow. Time Spent in Nutritional Counseling and Treatment: 0
[2021-12-20] MEDS: Zinc Sulfate 220 MG TAB PO (10:24)
[2021-12-20] MEDS: Midodrine 2.5 MG TAB 5 MG PO ×3 (10:25→18:18)
[2021-12-20] MEDS: Pantoprazole 40 MG TABCR PO (10:25)
[2021-12-20] MEDS: Cyanocobalamin 500 MCG TAB 1000 MCG PO (10:25)
[2021-12-20] MEDS: Multivitamin TAB 1 TAB PO (10:26)
[2021-12-20] MEDS: Letrozole 2.5 MG TAB PO (10:26)
[2021-12-20] MEDS: Ascorbic Acid 500 MG TAB PO (10:26)
[2021-12-20] MEDS: Potassium Chloride 20 MEQ TABCR PO (10:26)
[2021-12-20] MEDS: Protein Nutritional Supplement 16 GM 1 OUNCE PACKET PO (10:27)
--- NOTE | 2021-12-20 11:20 | PDOC.CMPRO ---
- If Service Date Differs Date of service: 12/20/21 Time of Service: 11:20 Care Management Progress Note Wanda will enter SWB1 for PT/OT/IV ABX when ready per MD. CM continues to follow and support discharge planning considerations.
[2021-12-20 11:47] VITALS: BP 104/71; PULSE 97; RESP 17; TEMP 36.8; O2SAT 95
--- NOTE | 2021-12-20 14:40 | W.PM.DS.N ---
Date of service: 12/20/21 Time of Service: 14:41 DS: Diagnosis Discharge Diagnosis (1) Gram-negative bacteremia: Status: Acute (2) UTI (urinary tract infection): Status: Acute (3) Chronic anemia: Status: Chronic (4) Non-insulin dependent diabetes mellitus: (5) Neurogenic bladder: (6) Metastatic breast cancer: (7) Decubitus skin ulcer: Status: Acute (8) DVT prophylaxis: Status: Acute (9) Discharge planning issues: Status: Acute Discharge Plan Disposition Patient Disposition: [facility] SWING BED LEVEL 1 Condition: Stable Discharge Details Reason For Visit: ESBL UTI, Bacteremia Admit Date/Time: 12/15/21 13:16 Admit Provider: Marimar Garvey Attending Provider: Marimar Garvey Primary Care Provider: Unknown,Unknown Hospital Course Hospital Course: Ms Back is a 61 year old female w/ PMHx of metastatic breast cancer metastatic to cervical spine resulting in paraplegia and neurogenic bladder, s/p indwelling mancera, as well as h/o IVC filter (prophylactic), T2DM (noninsulin dependent, diet controlled), hyperlipidemia, who was asked to return to the ED today due to blood cultures, collected at [facility] ED the day prior to this admission, being positive. At that time, she had presented with complaints of fatigue, subjective fever (as per ER records; the patient actually denies this), cloudy urine and a clogged mancera catheter, which was exchanged. The patient also reports having had nausea/vomiting the day before.? She was initiated on empiric levofloxacin and discharged home. Both her urine and 2/4 blood cultures from yesterday's ER visit are growing GNR (likely Klebsiella, per microbiology; sensitivities will not be available until tomorrow). The patient has an elevated CRP of 20.80, procalcitonin of 0.8. She was hypotensive down to 90/63 yesterday having run out of midodrine, but it was refilled yesterday, and today her BP is 129/72. Her lactate is 1.3. The patient does not feel worse today but also does not feel better. Hospitalist admission was requested. The patient denies sx of COVID-19. She is not vaccinated against COVID-19. She has yet to be plugged in with a new PCP and does not currently have a way to get her catheter supplies. ESBL Klebsiella pneumoniae grew in urine culture and blood culture. Resistant to Levaquin. Primaxin initiated for a 2 week course. Pt agreeable to stay inpt as a swingbed I status. Wound care also evaluated patient for her sacral and ischial pressure-related ulcers. A wound care plan initiated. Her was shown how to perform the dressings for the ulcers. Transitioning to Swingbed I level for ongoing IV antibiotic administration. Home Meds and New Rx's Prescriptions: No Action baclofen 10 mg tablet 0.5 tab PO Q8H PRN Label Comments: Take half a tablet by mouth every 8 hours pantoprazole 40 mg Tablet,Delayed Release (Dr/Ec) 40 mg PO DAILY gabapentin 300 mg capsule 2 cap PO Q8H Label Comments: Take 2 capsules by mouth every 8 hours letrozole 2.5 mg tablet 1 tab PO DAILY Label Comments: 1 tablet daily levofloxacin 750 mg tablet 750 mg PO Q24H 4 Days Qty: 4 0RF midodrine 5 mg tablet 5 mg PO TID Qty: 10 0RF Rx Instructions: do not give last dose of day after 6PM or within 4 hrs of bedtime ondansetron 4 mg tablet,disintegrating 4 mg PO TID PRN3 Days Qty: 9 0RF dabigatran etexilate [Pradaxa] 150 mg Capsule 150 mg PO BID Discharge Instructions Activity:: Bedbound/chronic Equipment/Supplies:: No Equipment Needed Diet:: Diabetic DS: Summary Time Spent with Patient providing and/or coordinating discharge services: Greater than 30 minutes Status at Discharge Functional status at discharge: bed bound Overall status at discharge: patient is back to baseline Mental Status: mental status grossly normal Speech and Movement: speech clear Mood: congruent mood Affect: normal affect Exam Narrative Exam Narrative: General: Very pleasant Middle-aged female who is in bed. Conversant. NAD. Cardiovascular: RRR, no murmur Lungs: CTAB anteriorly Gastrointestinal: soft, nontender, nondistended Genitourinary: has a mancera Extremities: no edema BLEs, no calf tenderness. Skin: See wound care note describing sacral and ischial area pressure ulcers. Psych Mental Status: mental status grossly normal Speech and Movement: speech clear Mood: congruent mood Affect: normal affect DS: Data Vitals/I&O Vitals and I&O: Vital Signs Temperature 36.8 C 12/20/21 11:47 Temperature Source Tympanic 12/20/21 11:47 Pulse 97 H 12/20/21 11:47 Pulse Rhythm Regular 12/20/21 00:45 Respiratory Rate 17 12/20/21 11:47 Respiratory Effort Non-Labored 12/20/21 00:45 Respiratory Depth Normal 12/20/21 00:45 Respiratory Pattern Normal 12/20/21 00:45 Blood Pressure 104/71 12/20/21 11:47 Blood Pressure Mean 86 12/15/21 12:58 Blood Pressure Position Sitting 12/15/21 10:06 Pulse Oximetry 95 12/20/21 11:47 Oxygen Delivery Method Room Air 12/20/21 11:47 Oxygen Flow Rate 0 12/20/21 11:47 Pain Level 0 12/20/21 11:47 Comment 12/18/21 11:56 Intake & Output 12/19/21 12/20/21 12/20/21 23:59 11:59 23:59 Intake Total 820 / 1140 720 / 720 Output Total 1850 / 4650 3575 / 3975 400 / 3975 Balance -1030 / -3510 -2855 / -3255 -400 / -3255 Weight 65.9 kg Intake: IV 700 / 900 100 / 100 Oral 120 / 240 620 / 620 Output: Urine 1850 / 4650 3575 / 3975 400 / 3975 Other: Urine Color Pale Yellow Yellow Yellow Urine Appearance Clear Clear Clear Data Completed and Pending Labs on day of discharge: Preliminary micro results at discharge 12/15/21 12:35 Blood Culture - Preliminary Blood NO GROWTH 96 HOURS PFSH All Active Problems Decubitus skin ulcer (Acute) Discharge planning issues (Acute) DVT prophylaxis (Acute) Chronic anemia (Chronic) Gram-negative bacteremia (Acute) UTI (urinary tract infection) (Acute) Bacteremia (Acute) Medical History Hyperlipidemia Indwelling Mancera catheter present Metastatic breast cancer Neurogenic bladder Non-insulin dependent diabetes mellitus Normocytic normochromic anemia Paraplegia Surgical History H/O bilateral mastectomy S/P cervical spinal fusion S/P IVC filter Family History Brother Hypertension Mother Breast cancer Other Heart disease Social History Smoking/Tobacco Use Status: Never Smoking risk assessment performed?: Yes Alcohol Intake: never Drug use: Never Substance use type: does not use Do you feel safe at home: Yes Do you feel safe in your relationship?: Yes
[2021-12-20 15:01] VITALS: BP 98/67; PULSE 103; RESP 17; TEMP 37.3; O2SAT 96
== END 2021-12-20 17:50 | disposition swing bed (61) | DRG 871 ==
LOC: ER 13:38 → MS 14:11
PROVIDERS: Family Medicine; Admitting Provider Internal Medicine; Emergency Provider Physician Assistant; Visit Provider Internal Medicine
DX: N39.0 Urinary tract infection, site not specified (principal); C79.51 Secondary malignant neoplasm of bone; G95.29 Other cord compression; G82.20 Paraplegia, unspecified; R78.81 Bacteremia; Z16.12 Extended spectrum beta lactamase (ESBL) resistance; B96.1 Klebsiella pneumoniae [K. pneumoniae] as the cause of diseases classified elsewhere; D64.9 Anemia, unspecified; E11.9 Type 2 diabetes mellitus without complications; F31.9 Bipolar disorder, unspecified; Z85.3 Personal history of malignant neoplasm of breast; E78.5 Hyperlipidemia, unspecified; Z90.13 Acquired absence of bilateral breasts and nipples; L89.223 Pressure ulcer of left hip, stage 3; L89.152 Pressure ulcer of sacral region, stage 2; S20.421A Blister (nonthermal) of right back wall of thorax, initial encounter; X58.XXXA Exposure to other specified factors, initial encounter; Z28.310 Unvaccinated for COVID-19; Z28.9 Immunization not carried out for unspecified reason; E53.8 Deficiency of other specified B group vitamins; Z79.2 Long term (current) use of antibiotics
CPT/HCPCS: 36415; 76770; 80048; 80053; 84145; 85652; 87040; 87635; 96360; 97163; 97167; 99284; 99285; J1650; 71045; 82607; 82728; 82746; 83036; 83540; 83550; 83605; 83735; 85025; 85610; 86140; 99223; 99232; 99233; 99239; J0743; J1956; J3490

== ENCOUNTER 2021-12-20 17:57 | Inpatient (IN) | payer BC, SELFPAY ==
--- NOTE | 2021-12-20 18:03 | W.PM.HP.N ---
Date of service: 12/20/21 Time of Service: 18:03 Assessment and Plan Assessment and plan (1) Gram-negative bacteremia: Status: Acute Assessment and plan: Due to klebsiella pneumonia; ESBL growing in initial blood cultures. Resistant to Levaquin that she was initially prescribed. Repeat blood cultures are negative. On Primaxin. Procalcitonin has decreased from 0.8 to 0.3. CRP trending downward. Mancera catheter exchanged. US renal negative (2) UTI (urinary tract infection): Status: Acute Assessment and plan: As above (3) Chronic anemia: Status: Chronic Assessment and plan: Has evidence of B12 deficiency. Replete. Monitor (4) Non-insulin dependent diabetes mellitus: Assessment and plan: A1C 6.4., diet controlled. Continue Carb consistent diet. (5) Neurogenic bladder: Assessment and plan: Mancera catheter exchanged in the ED. Will ensure the patient has the resources in the community to assist with the monthly mancera catheter changes. (6) Metastatic breast cancer: Assessment and plan: Continue home letrozole. Consult palliative care. (7) Decubitus skin ulcer: Status: Acute Assessment and plan: Wound care consulted and appreciated. Her was present and discussed plan of care for her wounds with wound care nurse. (8) DVT prophylaxis: Status: Acute Assessment and plan: The patient is on full dose pradaxa prophylactically since her neck surgery this winter. I have requested records from the [facility] in [place], [place], to clarify the duration of therapy. (9) Discharge planning issues: Status: Acute Assessment and plan: Full code PT evaluated and d/t chronic immobility has no other recommendations than ongoing prevention of contractures. History of Present Illness History of Present Illness Chief Complaint: ESBL bacteremia and UTI Narrative: Ms Back is a 61 year old female w/ PMHx of metastatic breast cancer metastatic to cervical spine resulting in paraplegia and neurogenic bladder, s/p indwelling mancera, as well as h/o IVC filter (prophylactic), T2DM (noninsulin dependent, diet controlled), hyperlipidemia, who was asked to return to the ED today due to blood cultures, collected at [facility] ED the day prior to this admission, being positive. At that time, she had presented with complaints of fatigue, subjective fever (as per ER records; the patient actually denies this), cloudy urine and a clogged mancera catheter, which was exchanged. The patient also reports having had nausea/vomiting the day before.? She was initiated on empiric levofloxacin and discharged home. Both her urine and 2/4 blood cultures from yesterday's ER visit are growing GNR (likely Klebsiella, per microbiology; sensitivities will not be available until tomorrow). The patient has an elevated CRP of 20.80, procalcitonin of 0.8. She was hypotensive down to 90/63 yesterday having run out of midodrine, but it was refilled yesterday, and today her BP is 129/72. Her lactate is 1.3. The patient does not feel worse today but also does not feel better. Hospitalist admission was requested. The patient denies sx of COVID-19. She is not vaccinated against COVID-19. She has yet to be plugged in with a new PCP and does not currently have a way to get her catheter supplies. ESBL Klebsiella pneumoniae grew in urine culture and blood culture.? Resistant to Levaquin.? Primaxin initiated for a 2 week course. Pt agreeable to stay inpt as a swingbed I status. Wound care also evaluated patient for her sacral and ischial pressure-related ulcers.? A wound care plan initiated.? Her was shown how to perform the dressings for the ulcers. Transitioned to Swingbed I level for ongoing IV antibiotic administration. Review of Systems All systems reviewed & are unremarkable except as noted in HPI and below PFSH All Active Problems Decubitus skin ulcer (Acute) Discharge planning issues (Acute) DVT prophylaxis (Acute) Chronic anemia (Chronic) Gram-negative bacteremia (Acute) UTI (urinary tract infection) (Acute) Bacteremia (Acute) Medical History Hyperlipidemia Indwelling Mancera catheter present Metastatic breast cancer Neurogenic bladder Non-insulin dependent diabetes mellitus Normocytic normochromic anemia Paraplegia Surgical History H/O bilateral mastectomy S/P cervical spinal fusion S/P IVC filter Family History Brother Hypertension Mother Breast cancer Other Heart disease Social History Smoking/Tobacco Use Status: Never Smoking risk assessment performed?: Yes Alcohol Intake: never Drug use: Never Substance use type: does not use Do you feel safe at home: Yes Do you feel safe in your relationship?: Yes Meds Allergies and Home Medications Allergies Allergy/AdvReac Type Severity Reaction Status Date / Time No Known Allergies Allergy Unverified 12/15/21 10:15 Home Medications Medication Instructions Recorded Confirmed Type baclofen 10 mg tablet 0.5 tab PO Q8H PRN 12/14/21 12/16/21 History gabapentin 300 mg capsule 2 cap PO Q8H 12/14/21 12/16/21 History letrozole 2.5 mg tablet 1 tab PO DAILY 12/14/21 12/16/21 History levofloxacin 750 mg tablet 750 mg PO Q24H 4 days #4 tabs 12/14/21 12/15/21 Rx midodrine 5 mg tablet 5 mg PO TID #10 tabs 12/14/21 12/16/21 Rx ondansetron 4 mg disintegrating 4 mg PO TID PRN 3 days #9 tabs 12/14/21 12/16/21 Rx tablet pantoprazole 40 mg tablet,delayed 40 mg PO DAILY 12/14/21 12/16/21 History release dabigatran etexilate 150 mg 150 mg PO BID 12/16/21 12/16/21 History capsule (Pradaxa) Exam Narrative Exam Narrative: General: Very pleasant Middle-aged female who is in bed. Conversant. NAD. Cardiovascular: RRR, no murmur Lungs: CTAB anteriorly Gastrointestinal: soft, nontender, nondistended Genitourinary: has a mancera Extremities: no edema BLEs, no calf tenderness. Skin: See wound care note describing sacral and ischial area pressure ulcers. Psych Mental Status: mental status grossly normal Speech and Movement: speech clear Mood: congruent mood Affect: normal affect
[2021-12-20 18:23] VITALS: BP 98/69; PULSE 103; RESP 16; TEMP 37.3; O2SAT 96
--- NOTE | 2021-12-20 19:01 | NUR.NOTE ---
Nursing Note: status transfer to swing bed status from inpatient, See shift assessment
[2021-12-20] MEDS: IMIPENEM/CILASTATIN 500 MG in Normal Saline 100 ML 200 MG IVPB (20:45)
[2021-12-20] MEDS: Normal Saline 500 ML 30 ML IV (20:47)
[2021-12-20] MEDS: Protein Nutritional Supplement 16 GM 1 OUNCE PACKET PO (21:11)
[2021-12-20] MEDS: Potassium Chloride 20 MEQ TABCR PO (21:12)
[2021-12-20] MEDS: Gabapentin 300 MG CAP 600 MG PO (21:12)
[2021-12-20] MEDS: Ascorbic Acid 500 MG TAB PO (21:12)
[2021-12-20] MEDS: Magnesium Oxide 400 MG TAB PO (21:16)
[2021-12-20 23:30] VITALS: BP 90/62; PULSE 102; RESP 18; TEMP 37; O2SAT 96
[2021-12-21] MEDS: IMIPENEM/CILASTATIN 500 MG in Normal Saline 100 ML 200 MG IVPB ×4 (01:26→20:48)
[2021-12-21] MEDS: Gabapentin 300 MG CAP 600 MG PO ×3 (05:59→20:49)
[2021-12-21 08:11] VITALS: BP 88/60; PULSE 101; RESP 17; TEMP 37.1; O2SAT 95
[2021-12-21 08:20] VITALS: BP 92/64
[2021-12-21] MEDS: Protein Nutritional Supplement 16 GM 1 OUNCE PACKET PO ×3 (08:54→20:48)
[2021-12-21] MEDS: Letrozole 2.5 MG TAB PO (08:55)
[2021-12-21] MEDS: Cyanocobalamin 500 MCG TAB 1000 MCG PO (08:55)
[2021-12-21] MEDS: Zinc Sulfate 220 MG TAB PO (08:55)
[2021-12-21] MEDS: Midodrine 2.5 MG TAB 5 MG PO ×3 (08:55→18:06)
[2021-12-21] MEDS: Potassium Chloride 20 MEQ TABCR PO ×2 (08:56→20:49)
[2021-12-21] MEDS: Multivitamin TAB 1 TAB PO (08:56)
[2021-12-21] MEDS: Ascorbic Acid 500 MG TAB PO ×2 (08:56→20:49)
[2021-12-21] MEDS: Pantoprazole 40 MG TABCR PO (08:56)
--- NOTE | 2021-12-21 09:24 | CMSA_ITS ---
- If Service Date Differs Date of service: 12/21/21 Time of Service: 12:06 SB Psychosocial/Act.Assessment - Hospital Admission Admission Date: 12/20/21 Admission From:: Acute Diagnosis:: ESBL UTI, Bacteremia - Swing Bed Admission Swing Bed Admit Date:: 12/20/21 Swing Bed Level of Care: Level 1/SNF - Social Supports PREVIOUS FUNCTIONAL STATUS/SOCIAL/FAMILY SUPPORTS:: Wanda recently moved to [facility], seven weeks ago with her , Raulito. She shares that this was their mcfp plan. 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 Raulito worked for the [employer]. She reports they bought a forest near the [facility] [place] and moved to [place] about seven weeks ago. Raulito has family locally and his brother is visiting from [place], helping them to get settled. Wanda has metastatic breast cancer and reports having a spinal surgery with tumor removal that left her without feeling from the chest down. She is able to wiggle a few toes, and move her fingers, but she reports having a contracture, hiking thumb that is causing pain in the muscles of her arm and other fingers. She shares a strong sari, network of jewish support and reports that her is her rock that helps with all of her care needs and brings katherine and enrichment to her life. They recently enjoyed going to the [facility] [address] and like exploring the trails on their land. Raulito cleans and manages Wanda's catheter but it is usually changed by home health nursing which has yet to be set up in [place]. She requests support with seeking and securing services locally. - Prior to Admission Living Arrangements/Environment Prior to Admission:: Private home with , Raulito in [place], [place]. Has medical bed, bailey lift and wheel chair as well as assistive mobility van. 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 Able to wiggle toes and move hands though movement is limited and she has a hikers thumb Cognitive:: intact Communication:: appropriate Behavior:: Gracious, pleasant, appropriate - Medical History PAST MEDICAL HISTORY/PAST SURGICAL HISTORY:: Ms Back is a 61 year old female w/ PMHx of metastatic breast cancer metastatic to cervical spine resulting in paraplegia and neurogenic bladder, s/p indwelling mancera, as well as h/o IVC filter (prophylactic), T2DM (noninsulin dependent, diet controlled). Medical History (Updated 12/15/21 @ 19:12 by Marimar Garvey MD). Hyperlipidemia. Indwelling Mancera catheter present. Metastatic breast cancer. Neurogenic bladder. Non-insulin dependent diabetes mellitus. Normocytic normochromic anemia. Paraplegia. Surgical History (Updated 12/15/21 @ 19:07 by Marimar Garvey MD). H/O bilateral mastectomy. S/P cervical spinal fusion. S/P IVC filter - Admission Data Reason for Swing Bed Admission:: ESBL UTI, L/T IV ABX Discharge Plan:: Wanda will return home when ready per MD. She will have new home health orders for RN/PT/OT, new referral to [facility] for MOW, Case Management and be followed by Palliative Care. She will transport via her own private specialized van, driven by her . Assessment: S/T SWB1 for IV ABX, PT/OT Supervisor Powdered Sugar: Marlen Muller Date Assessment was completed:: 12/20/21
--- NOTE | 2021-12-21 12:26 | CM.SWINGPC ---
- If Service Date Differs Date of service: 12/21/21 Time of Service: 12:26 Swingbed Plan of Care Plan of care: SWING BED PROGRAM ACTIVITIES/DISCHARGE PLAN OF CARE ACTIVITIES PLAN Date: 12/21/21 Identified Need: Treatment for ESBL Intervention/Plan: SWB1 for IV ABX Initials: [facility] DISCHARGE PLAN Date: 12/21/21 Identified Need: Complex care coordination including service supports, equipment, disability (or alternate) navigation, PCP, VNA, etc. Intervention/Plan: SWB1 PT/OT/IV ABX, Care Coordination. Initials: ARIANNA
[2021-12-21 15:23] VITALS: BP 106/74; PULSE 83; RESP 18; TEMP 36.4; O2SAT 98
[2021-12-21] MEDS: Normal Saline Flush 10 ML SYR IVP (15:25)
--- NOTE | 2021-12-21 15:42 | CHAPLAIN ---
Wanda was in bed when I visited. She was very pleasant and easily engaged in a conversation. She moved to [place] from [place] eight weeks ago. Her has family here. Wanda said she has spent time in [place] during all four season. They sold their [place] home quickly and moved here to a home that is furnished, and their furniture is in storage. Wanda said her Hao put a small saw mill up at their house and with his brother is making boards from trees found near their home to build a garage. Wanda explained that last May she stood up and collapsed and then had surgery for a tumor on her spine. Since then she has been paralyzed from the shoulders down, with some movement in her arms and slight movement in her feet. 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 They are looking for a taoism here and have visited a couple. Wanda is here getting IV antibiotics for an infection.
--- NOTE | 2021-12-21 16:44 | PHA.REVIEW2 ---
Pharmacy Admission Review - Admission Clinical Review (Last Reviewed 12/20/21 @ 14:41 by Earnest Golden MD) Decubitus skin ulcer (Acute) Discharge planning issues (Acute) DVT prophylaxis (Acute) Gram-negative bacteremia (Acute) UTI (urinary tract infection) (Acute) No Known Allergies Allergy (Unverified 12/15/21 10:15) Resuscitation Status DNR/DNI Height 5 ft 3 in Weight 65.9 kg - Renal Dosing Medications needing adjustments: Reviewed List of meds needing interventions: eCrCl 54 ml/min, primaxin renally dosed - Anticoagulation Therapeutic Anticoagulation: Reviewed Medications: Dabigatran - Opiate Usage Evaluate Pain Scale/Pains Meds: N/A Scheduled Bowel Reg ordered if on Opiates?: No - Relevant Labs Electrolytes, C-Reactive P, ESR: N/A - DM Control DM Control: N/A - Cardiac Review BP, HR, EF%: Reviewed - Qtc Review QTc: N/A - IV to PO Switch IV Medications: Reviewed - Home Meds Home Med List reviewed: Reviewed Relevent Home Meds Not ordered & why?: all ordered - Current meds Current Medication Order Review: Reviewed (2 weeks of primaxin for klebsiella pneumonia, ESBL bacteremia; resistant to levaquin which she was initially prescribed)
[2021-12-21] MEDS: Magnesium Oxide 400 MG TAB PO (20:49)
[2021-12-22 00:06] VITALS: BP 97/67; PULSE 101; RESP 18; TEMP 37.1; O2SAT 95
[2021-12-22] MEDS: IMIPENEM/CILASTATIN 500 MG in Normal Saline 100 ML 200 MG IVPB ×4 (01:51→20:07)
[2021-12-22] MEDS: Gabapentin 300 MG CAP 600 MG PO ×3 (05:08→21:46)
[2021-12-22 07:30] VITALS: BP 100/60; PULSE 98; RESP 16; TEMP 36.4; O2SAT 96
[2021-12-22] MEDS: Midodrine 2.5 MG TAB 5 MG PO ×3 (08:09→18:21)
[2021-12-22] MEDS: Protein Nutritional Supplement 16 GM 1 OUNCE PACKET PO ×3 (08:09→20:07)
[2021-12-22] MEDS: Cyanocobalamin 500 MCG TAB 1000 MCG PO (08:10)
[2021-12-22] MEDS: Letrozole 2.5 MG TAB PO (08:10)
[2021-12-22] MEDS: Pantoprazole 40 MG TABCR PO (08:10)
[2021-12-22] MEDS: Zinc Sulfate 220 MG TAB PO (08:10)
[2021-12-22] MEDS: Potassium Chloride 20 MEQ TABCR PO ×2 (08:10→20:07)
[2021-12-22] MEDS: Ascorbic Acid 500 MG TAB PO ×2 (08:10→20:07)
[2021-12-22] MEDS: Multivitamin TAB 1 TAB PO (08:10)
[2021-12-22 12:41] LABS: Bilirubin Negative (Negative); Blood Negative (Negative); Clarity Clear (Clear); Glucose Negative (Negative); Ketones Negative (Negative); Leukocyte Esterase Trace (Negative); Nitrite Negative (Negative); Specific Gravity 1.015 (1.005-1.025); Urobilinogen 0.2 EU/dL (Up TO 0.2)
[2021-12-22 12:52] LABS: RBC 0-2 HPF (0-2)
[2021-12-22 12:53] LABS: Bacteria Negative HPF (Negative); C & S Indicated? C&S Done As Ordered; Casts Negative LPF (Negative); Crystals Negative HPF (Negative); Epithelial Cells Rare HPF (Negative); Mucus Negative (Negative)
[2021-12-22 15:42] VITALS: BP 107/71; PULSE 80; RESP 16; TEMP 37; O2SAT 98
[2021-12-22] MEDS: Magnesium Oxide 400 MG TAB PO (21:46)
[2021-12-22 23:05] VITALS: BP 110/70; PULSE 88; RESP 18; TEMP 37.7; O2SAT 94
[2021-12-22 23:10] VITALS: TEMP 37.3
[2021-12-23] MEDS: IMIPENEM/CILASTATIN 500 MG in Normal Saline 100 ML 200 MG IVPB ×4 (01:26→19:56)
[2021-12-23] MEDS: Normal Saline Flush 10 ML SYR IVP ×5 (02:10→21:06)
[2021-12-23] MEDS: Gabapentin 300 MG CAP 600 MG PO ×3 (05:26→21:32)
[2021-12-23] MEDS: Midodrine 2.5 MG TAB 5 MG PO ×3 (07:39→17:59)
[2021-12-23] MEDS: Ascorbic Acid 500 MG TAB PO ×2 (07:40→19:58)
[2021-12-23] MEDS: Cyanocobalamin 500 MCG TAB 1000 MCG PO (07:41)
[2021-12-23] MEDS: Letrozole 2.5 MG TAB PO (07:41)
[2021-12-23] MEDS: Multivitamin TAB 1 TAB PO (07:41)
[2021-12-23] MEDS: Potassium Chloride 20 MEQ TABCR PO ×2 (07:41→19:58)
[2021-12-23] MEDS: Pantoprazole 40 MG TABCR PO (07:41)
[2021-12-23] MEDS: Zinc Sulfate 220 MG TAB PO (07:41)
[2021-12-23] MEDS: Protein Nutritional Supplement 16 GM 1 OUNCE PACKET PO ×3 (07:43→19:58)
[2021-12-23 07:57] VITALS: BP 92/64; PULSE 96; RESP 14; TEMP 36.9; O2SAT 96
--- NOTE | 2021-12-23 13:23 | CHAPLAIN ---
Wanda has changed to swing bed status and will be here to get IV antibiotics. She moved to [facility] from [place] about two months ago. She and her bought a house on the [place]. It's off the grid, but with a generator, and they are adding solar panels. Her 's brother is here now and they are working on building a garage for the house, starting with cutting and milling their own boards. Wanda is very pleasant and seems to enjoy conversations. She was involved with a large episcopalian in [place], and is looking for a local episcopalian here. Today I brought her a prayer shawl which she was appreciative of. I will continue to visit.
[2021-12-23 15:09] VITALS: BP 121/81; PULSE 94; RESP 12; TEMP 37; O2SAT 94
[2021-12-23] MEDS: Magnesium Oxide 400 MG TAB PO (21:32)
[2021-12-23 23:15] VITALS: BP 96/66; PULSE 103; RESP 12; TEMP 36.8; O2SAT 95
[2021-12-24] MEDS: IMIPENEM/CILASTATIN 500 MG in Normal Saline 100 ML 200 MG IVPB ×4 (02:09→19:58)
[2021-12-24] MEDS: Gabapentin 300 MG CAP 600 MG PO ×3 (06:24→21:52)
[2021-12-24 08:23] VITALS: BP 95/63; PULSE 94; RESP 16; TEMP 36.8; O2SAT 98
[2021-12-24] MEDS: Protein Nutritional Supplement 16 GM 1 OUNCE PACKET PO ×3 (08:42→19:59)
[2021-12-24] MEDS: Normal Saline Flush 10 ML SYR IVP ×3 (08:42→20:00)
[2021-12-24] MEDS: Cyanocobalamin 500 MCG TAB 1000 MCG PO (08:42)
[2021-12-24] MEDS: Zinc Sulfate 220 MG TAB PO (08:43)
[2021-12-24] MEDS: Letrozole 2.5 MG TAB PO (08:43)
[2021-12-24] MEDS: Midodrine 2.5 MG TAB 5 MG PO ×3 (08:43→18:00)
[2021-12-24] MEDS: Pantoprazole 40 MG TABCR PO (08:44)
[2021-12-24] MEDS: Multivitamin TAB 1 TAB PO (08:44)
[2021-12-24] MEDS: Ascorbic Acid 500 MG TAB PO ×2 (08:44→19:59)
[2021-12-24] MEDS: Potassium Chloride 20 MEQ TABCR PO ×2 (08:44→19:59)
--- NOTE | 2021-12-24 13:59 | PGE_ITS ---
Date of Service Date of service: 12/24/21 Time of Service: 14:15 Subjective Subjective Patient reports: no new complaints Interval history since last seen: Wanda is doing well. The first urine collected was 12/14; cx positive for Klebsiella pneumoniae; she also had a positive BC also for Klebsiella pneumoniae; No fever since 12/17. VSS, she generally has low BP S90'sand is tachycardic 90- 100's, usual for her. ; She has had one week of Imipenem (+sensitive). We repeated a urine on 12/22 and it remains positive for Klebsiella pneumoniae. Will check CBC/CMP/Mag/CRP/Procal tomorrow - will repeat BC today. After discussion with the pharmacist and Dr Pagan the plan is to continue Imipenem for one more week. It is also sensitive to Pip/Ok. Objective Last Vital Signs Temp 36.8 C 12/24/21 08:23 Pulse 94 H 12/24/21 08:23 Resp 16 12/24/21 08:23 BP 95/63 L 12/24/21 08:23 Pulse Ox 98 12/24/21 08:23
--- NOTE | 2021-12-24 19:37 | WOUNDCONS ---
- If Service Date Differs Date of service: 12/24/21 Time of Service: 17:50 Wound Initial Evaluation Narrative: Ms Back is a 61 year old female w/ PMHx of metastatic breast cancer metastatic to cervical spine resulting in paraplegia and neurogenic bladder, s/p indwelling mancera, as well as h/o IVC filter (prophylactic), T2DM (noninsulin dependent, diet controlled), hyperlipidemia. She is currently here as a Swing bed patient receiving IV antibiotics for bacteremia. This is a follow up visit for a one week regarding her sacral and left ischial tuberosity wounds. Pt and her traveled here from [place] via car to relocate. They own a 62 acre property with a home in the center. She enjoys spending her days sitting in her wheelchair on the front porch watching the birds and feeling the cool air. She states that her wheelchair has a timed tilting feature that is set to tilt her further back every 90 minutes. Advised that it is recommended that this frequency be changed to every 30 minutes to have a change in the tilt to change her pressure points in her chair. Pt verbalized understanding to this and was able to repeat instructions. procalcitonin of 0.8. Most recent labs WBC 3.6 Most recent ESR 60 H&H 9.5/29.8 Iron 18 (50-170) TIBC 153 (250-450) Transferrin 12 (15-50) Total Protein 6.0 (6.4-8.2) HgbA1c 6.4 Inr 1.1 Medical History includes: Hyperlipidemia Indwelling Mancera catheter present Metastatic breast cancer Neurogenic bladder Non-insulin dependent diabetes mellitus Normocytic normochromic anemia Paraplegia Surgical History includes: H/O bilateral mastectomy S/P cervical spinal fusion S/P IVC filter - Wound sacrum Wound Type: Partial Thickness Pressure Ulcer Stage: II Wound General Appearance: Unapproximated, Denuded Wound Bed Greatest Portion: Red (Granulation) Wound Bed Lesser Portion: Yellow (Slough) Wound Surrounding Tissue Appearance: [place] Percent of Wound Bed Granulated/Red: 90 Percent of Wound Bed Slough/Yellow: 10 Percent of Wound Bed Eschar/Black: 0 Wound Length: 1.5 in (3.8cm) Wound Width: 1.38 in (3.5cm) Wound Depth: 0.04 in (0.1cm) Wound Drainage Amount: None Wound Drainage Odor: None/Absent Wound Drainage Description: No drainage Wound Topical Solution/Irrigant: Other (Anasept) Wound Debridement Method: Gauze Wound Debridement Result: Healthy Tissue Revealed Wound Debridement Amount of Tissue Removed: None ischial tuberocity Wound Type: Pressure Ulcer Pressure Ulcer Stage: III Wound General Appearance: Draining, Bleeding, Necrotic, Unapproximated, Other (yellow slough) Wound Bed Greatest Portion: Yellow (Slough) Wound Bed Lesser Portion: Red (Granulation), Black (Eschar) Wound Surrounding Tissue Appearance: [place], Edges Rolled Percent of Wound Bed Granulated/Red: 5 Percent of Wound Bed Slough/Yellow: 70 Percent of Wound Bed Eschar/Black: 25 Wound Length: 1.65 in (4.2cm) Wound Width: 0.79 in (2.0cm) Wound Depth: 0.12 in (0.3cm) Wound Drainage Amount: Minimal Wound Drainage Odor: None/Absent Wound Drainage Description: Brown Wound Topical Solution/Irrigant: Other (Anasept) Wound Debridement Method: Conservative Sharp (Selective debridement with a #5 Curette), Other (Sharp debridement medically necessary to remove devitalized tissue from wound bed and wound edges to help prevent infection and to promote a healthy wound healing environment and to promote wound closure.) Wound Debridement Result: Healthy Tissue Revealed Wound Debridement Amount of Tissue Removed: Moderate Additional Other Comments: Post debridement photo taken with measurements of 4.2cm X 2.2cm X 0.4cm. Moderate amount of bleeding noted during procedure. Stopped with applied pressure of less than one minute. 95% red healthy tissue revealed with 5% slough remaining. - Pain Pain Level: 0 (Patient has no sensation due to paraplegia.) Pain Duration (Hours): 1.25 Pt is very eager to learn about her condition and ways to improve her health. She asks lots of questions and responds appropriately to questions. She verbalizes uderstanding and repeats instructions acurately. She does state that she has a RoHo cushion for her wheelchair and was able to help me describe it to another nurse appropriately. She is eager to find new tools to improve her quality of life. Pt oral intake reviewed and is eating well. Has been seen by Diabetic education as well as Nutrition. Has appropriate vitamins, minerals, and proteins suppliments in place for wound healing to be optimized. - Photo Photo: - Treatment/Dressing Change Cleanse With: Anasept Dressing Types: Hydrocollid (Duoderm), Mepilex w/Border Dressing Comment: Triad Hydrophilic wound dressing to sacrum Additional Other Comments: Santyl to ischial tuberosity ulcer. Cover with mepilex with border. - Recomendation Recomendation:: Left Ischial Tuberosity: 1. [place] with Anasept. 2. Allow to dwell for 2 minutes. 3. Pat dry with gauze. 4. Apply skin prep to the sergei wound skin. 5. Apply a nickel thickness of Santyl to the wound bed. 6. Cover with Meplilex. 7. Change daily and prn. Encourage patient to off-load pressure. Sacrum: 1. [place] wound bed with Anasept spray and allow to dwell for 2 minutes. 2. Debride with gauze. 3. Apply skin prep to the sergei wound skin. 4. Apply Triad to the wound bed and allow to dry. 5. Cover with Duoderm. Encourage patient to off-load pressure. Reposition pt every 1.5-2 hours with shorter periods on her back. Use at least 5 pillows for positioning. One behind back and hips, one between knees and ankles, one under top arm, two under her head tucked down low to her shoulders. When she is in a chair, offload pressure every 30 minutes. (Her wheelchair has a timed tilting feature). Treatment Time - Time Total Time Spent with Patient: 1.25 - Patient Will be Seen Weekly Treatment: daily - For: For:: 4 weeks
[2021-12-24 19:50] VITALS: BP 110/69; PULSE 90; RESP 16; TEMP 36.9; O2SAT 95
[2021-12-24] MEDS: Magnesium Oxide 400 MG TAB PO (21:52)
[2021-12-25 00:29] VITALS: BP 102/70; PULSE 88; RESP 16; TEMP 36.7; O2SAT 96
[2021-12-25] MEDS: Normal Saline Flush 10 ML SYR IVP ×2 (02:11→08:30)
[2021-12-25] MEDS: IMIPENEM/CILASTATIN 500 MG in Normal Saline 100 ML 200 MG IVPB ×4 (02:11→20:32)
[2021-12-25] MEDS: Gabapentin 300 MG CAP 600 MG PO ×3 (06:15→22:06)
[2021-12-25 07:28] LABS: Abs Immature Grans 0.05 10^3/uL (0.0-0.06); Absolute Basophil Count 0.03 10^3/uL (0.0-0.2); Absolute Eosinophil Count 0.21 10^3/uL (0.0-0.7); Absolute Lymphocyte Count 1.55 10^3/uL (1.2-3.4); Absolute Monocyte Count 0.37 10^3/uL (0.1-0.8); Basophils % 0.7; HCT 31.1 % (36.0-46.0); Immature Grans % 1.2; Lymphocytes % 36.8; MCH 26.8 pg (27.0-33.0); MCHC 32.2 % (32.0-36.0); MCV 83 fL (80-95); MPV 8.8 fL (8.0-11.0); Monocytes % 8.8; Neutrophils % 47.5; Platelet Count 342 10^3/uL (130-400); RBC 3.73 10^6/uL (3.93-5.22); RDW 14.8 % (11.7-14.6); RDW-SD 45.1 fL; WBC 4.21 10^3/uL (4.4-10.8)
[2021-12-25 07:45] VITALS: BP 92/58; PULSE 92; RESP 19; TEMP 36.9; O2SAT 97
[2021-12-25 07:50] LABS: ALT 14 U/L (14-59); AST 19 U/L (15-37); Alkaline Phosphatase 84 U/L (46-116); Anion Gap 6.2 mmol/L (3-11); BUN 15 mg/dL (7-18); Bilirubin, Total 0.2 mg/dL (0.2-1.0); C-Reactive Protein 0.86 mg/dL (0.0-0.3); CO2 29.8 mmol/L (21.0-32.0); CREATININE 0.4 mg/dL (0.55-1.02); Chloride 103 mmol/L (98-107); Estimated GFR 112.53 (mL/min/1.73m2); Glucose 100 mg/dL (74-106); Magnesium 1.9 mg/dL (1.8-2.4); Potassium 4.1 mmol/L (3.5-5.1); Sodium 139 mmol/L (136-145); Total Protein 7.5 g/dL (6.4-8.2)
[2021-12-25 08:09] LABS: Procalcitonin 0.1 ng/mL
[2021-12-25] MEDS: Midodrine 2.5 MG TAB 5 MG PO ×3 (08:27→17:32)
[2021-12-25] MEDS: Pantoprazole 40 MG TABCR PO (08:28)
[2021-12-25] MEDS: Cyanocobalamin 500 MCG TAB 1000 MCG PO (08:29)
[2021-12-25] MEDS: Potassium Chloride 20 MEQ TABCR PO ×2 (08:29→20:31)
[2021-12-25] MEDS: Multivitamin TAB 1 TAB PO (08:29)
[2021-12-25] MEDS: Ascorbic Acid 500 MG TAB PO ×2 (08:29→20:31)
[2021-12-25] MEDS: Letrozole 2.5 MG TAB PO (08:30)
[2021-12-25] MEDS: Zinc Sulfate 220 MG TAB PO (08:30)
[2021-12-25] MEDS: Normal Saline 500 ML 30 ML IV (08:31)
[2021-12-25] MEDS: Protein Nutritional Supplement 16 GM 1 OUNCE PACKET PO ×3 (08:33→20:31)
[2021-12-25 15:20] VITALS: BP 88/53; PULSE 100; RESP 16; TEMP 37.1; O2SAT 97
[2021-12-25] MEDS: Magnesium Oxide 400 MG TAB PO (22:06)
[2021-12-25 23:53] VITALS: BP 118/76; PULSE 92; RESP 17; TEMP 36.7; O2SAT 93
[2021-12-26] MEDS: IMIPENEM/CILASTATIN 500 MG in Normal Saline 100 ML 200 MG IVPB ×4 (01:41→20:09)
[2021-12-26] MEDS: Normal Saline Flush 10 ML SYR IVP ×2 (01:42→20:09)
[2021-12-26] MEDS: Gabapentin 300 MG CAP 600 MG PO ×3 (06:04→22:17)
[2021-12-26 07:56] VITALS: BP 106/73; PULSE 94; RESP 16; TEMP 37.1; O2SAT 95
[2021-12-26] MEDS: Ascorbic Acid 500 MG TAB PO ×2 (09:02→20:08)
[2021-12-26] MEDS: Cyanocobalamin 500 MCG TAB 1000 MCG PO (09:02)
[2021-12-26] MEDS: Midodrine 2.5 MG TAB 5 MG PO ×3 (09:04→17:35)
[2021-12-26] MEDS: Letrozole 2.5 MG TAB PO (09:04)
[2021-12-26] MEDS: Multivitamin TAB 1 TAB PO (09:04)
[2021-12-26] MEDS: Potassium Chloride 20 MEQ TABCR PO ×2 (09:04→20:09)
[2021-12-26] MEDS: Protein Nutritional Supplement 16 GM 1 OUNCE PACKET PO ×3 (09:04→20:09)
[2021-12-26] MEDS: Zinc Sulfate 220 MG TAB PO (09:04)
[2021-12-26] MEDS: Pantoprazole 40 MG TABCR PO (09:04)
--- NOTE | 2021-12-26 10:42 | PCNE_ITS ---
Date of service: 12/26/21 Time of Service: 07:00 History of Present Illness Narrative: From H and P: History of Present Illness?Chief Complaint: ESBL bacteremia and UTI?Narrative: Ms Back is a 61 year old female w/ PMHx of metastatic breast cancer metastatic to cervical spine resulting in paraplegia and neurogenic bladder, s/p indwelling mancera, as well as h/o IVC filter (prophylactic), T2DM (noninsulin dependent, diet controlled), hyperlipidemia, who was asked to return to the ED today due to blood cultures, collected at [facility] ED the day prior to this admission, being positive. At that time, she had presented with complaints of fatigue, subjective fever (as per ER records; the patient actually denies this), cloudy urine and a clogged mancera catheter, which was exchanged. The patient also reports having had nausea/vomiting the day before.? She was initiated on empiric levofloxacin and discharged home. Both her urine and 2/4 blood cultures from yesterday's ER visit are growing GNR (likely Klebsiella, per microbiology; sensitivities will not be available until tomorrow). The patient has an elevated CRP of 20.80, procalcitonin of 0.8. She was hypotensive down to 90/63 yesterday having run out of midodrine, but it was refilled yesterday, and today her BP is 129/72. Her lactate is 1.3. The patient does not feel worse today but also does not feel better. Hospitalist admission was requested. The patient denies sx of COVID-19. She is not vaccinated against COVID-19. She has yet to be plugged in with a new PCP and does not currently have a way to get her catheter supplies. ESBL Klebsiella pneumoniae grew in urine culture and blood culture.? Resistant to Levaquin.? Primaxin initiated for a 2 week course. Pt agreeable to stay inpt as a swingbed I status. Wound care also evaluated patient for her sacral and ischial pressure-related ulcers.? A wound care plan initiated.? Her was shown how to perform the dressings for the ulcers. Transitioned to Swingbed I level for ongoing IV antibiotic administration. Interim Hx: I came to see Wanda this morning. We talked briefly about palliative care. Unfortunately she had to change her room and there was not time to discuss her care, her needs and to move forward. I will come back sometime in the near future. Assessment and Plan Assessment and plan (1) Decubitus skin ulcer: Status: Acute (2) Chronic anemia: Status: Chronic (3) Gram-negative bacteremia: Status: Acute (4) Paraplegia: (5) Metastatic breast cancer: (6) Palliative care patient: Status: Acute Assessment and plan: Due to room change, unable to talk with patient for any length of time. We both agree that I will come back in the near future. Review of Systems Narrative: She has multiple needs due to her paraplegia. At this time she feels okay but not well. PFSH All Active Problems (Updated 12/30/21 @ 09:38 by Isela Toro MD, [place]) Palliative care patient (Acute) Decubitus skin ulcer (Acute) Discharge planning issues (Acute) DVT prophylaxis (Acute) Chronic anemia (Chronic) Gram-negative bacteremia (Acute) UTI (urinary tract infection) (Acute) Medical History Hyperlipidemia Indwelling Mancera catheter present Metastatic breast cancer Neurogenic bladder Non-insulin dependent diabetes mellitus Normocytic normochromic anemia Paraplegia Surgical History H/O bilateral mastectomy S/P cervical spinal fusion S/P IVC filter Family History Brother Hypertension Mother Breast cancer Other Heart disease Social History Smoking/Tobacco Use Status: Never Smoking risk assessment performed?: Yes Alcohol Intake: never Drug use: Never Substance use type: does not use Do you feel safe at home: Yes Do you feel safe in your relationship?: Yes Exam Narrative Exam Narrative: Cooperative 61-year-old woman no acute distress. She smiled freely. Her heart was regular. Full exam will follow Results Last Vital Signs Temp 98.8 F 12/26/21 07:56 Pulse 94 H 12/26/21 07:56 Resp 16 12/26/21 07:56 BP 106/73 12/26/21 07:56 Pulse Ox 95 12/26/21 07:56 Labs Result diagrams: 12/30/21 06:05 12/30/21 06:05 Labs: CXR FINDINGS: There is poor inspiration.? MEDIASTINUM: Normal.? HEART: Normal. PULMONARY VASCULATURE: Normal. LUNGS: Clear.? PLEURAL SPACE: No pleural effusion or pneumothorax. BONE:Within normal limits for the patient's age. There is an old right rib fracture deformity. OTHER FINDINGS:Surgical clips are seen in the soft tissues.? Postsurgical changes are seen in the lower cervical spine. ? IMPRESSION: No acute pulmonary findings. Imaging Chest x-ray: report reviewed
[2021-12-26 14:27] VITALS: BP 93/60
[2021-12-26 15:33] VITALS: BP 102/69; PULSE 96; RESP 16; TEMP 37.1; O2SAT 96
[2021-12-26] MEDS: Magnesium Oxide 400 MG TAB PO (22:17)
[2021-12-27 00:05] VITALS: BP 90/61; PULSE 94; RESP 16; TEMP 36.7; O2SAT 94
[2021-12-27] MEDS: IMIPENEM/CILASTATIN 500 MG in Normal Saline 100 ML 200 MG IVPB ×4 (02:12→20:16)
[2021-12-27] MEDS: Normal Saline Flush 10 ML SYR IVP ×4 (02:13→20:18)
[2021-12-27] MEDS: Gabapentin 300 MG CAP 600 MG PO ×3 (06:04→22:16)
[2021-12-27 07:51] VITALS: BP 91/63; PULSE 100; RESP 12; TEMP 35.9; O2SAT 94
[2021-12-27] MEDS: Protein Nutritional Supplement 16 GM 1 OUNCE PACKET PO ×3 (08:29→20:17)
[2021-12-27] MEDS: Letrozole 2.5 MG TAB PO (08:30)
[2021-12-27] MEDS: Zinc Sulfate 220 MG TAB PO (08:30)
[2021-12-27] MEDS: Pantoprazole 40 MG TABCR PO (08:30)
[2021-12-27] MEDS: Cyanocobalamin 500 MCG TAB 1000 MCG PO (08:30)
[2021-12-27] MEDS: Ascorbic Acid 500 MG TAB PO ×2 (08:31→20:17)
[2021-12-27] MEDS: Midodrine 2.5 MG TAB 5 MG PO ×3 (08:31→17:56)
[2021-12-27] MEDS: Multivitamin TAB 1 TAB PO (08:31)
[2021-12-27] MEDS: Potassium Chloride 20 MEQ TABCR PO ×2 (08:31→20:17)
[2021-12-27 15:45] VITALS: BP 114/76; PULSE 84; RESP 15; TEMP 36.1; O2SAT 98
--- NOTE | 2021-12-27 18:28 | W.PM.PROGNOT ---
Date of Service Date of service: 12/27/21 Time of Service: 18:28 Assessment and Plan Assessment and plan (1) Gram-negative bacteremia: Status: Acute Assessment and plan: Due to klebsiella pneumonia; ESBL growing in initial blood cultures. Resistant to Levaquin that she was initially prescribed. Repeat blood cultures are negative 12/24 On Primaxin for 2 weeks. Procalcitonin has decreased from 0.8 to 0.1. CRP trending downward now 0.86 Mancera catheter exchanged. US renal negative Discussed with Dr Garvey (2) UTI (urinary tract infection): Status: Acute Assessment and plan: As above (3) Chronic anemia: Status: Chronic Assessment and plan: Has evidence of B12 deficiency. Replete. Monitor (4) Non-insulin dependent diabetes mellitus: Assessment and plan: A1C 6.4., diet controlled. Continue Carb consistent diet. (5) Neurogenic bladder: Assessment and plan: Will ensure the patient has the resources in the community to assist with the monthly mancera catheter changes. Home health (6) Metastatic breast cancer: Assessment and plan: Continue home letrozole. Consult palliative care. (7) Decubitus skin ulcer: Status: Acute Assessment and plan: Wound care consulted and appreciated. Her was present and discussed plan of care for her wounds with wound care nurse. (8) DVT prophylaxis: Status: Acute Assessment and plan: The patient is on full dose pradaxa prophylactically since her neck surgery this winter. I have requested records from the [facility] in [place], [place], to clarify the duration of therapy - still waiting for records, will ask care mgt to follow up (9) Discharge planning issues: Status: Acute Assessment and plan: Full code PT evaluated and d/t chronic immobility has no other recommendations than ongoing prevention of contractures. Subjective Subjective Patient reports: no new complaints, feels better, tolerating a regular diet and afebrile; denies diarrhea, nausea, vomiting or shortness of breath Interval history since last seen: Wanda is doing well, she continues to have abx for ESBL, she has stablel vs, afebrile, WBC 4.21 Exam Narrative Exam Narrative: General: Very pleasant Middle-aged female who is in bed. Conversant. NAD. Cardiovascular: RRR, no murmur Lungs: CTAB anteriorly Gastrointestinal: soft, nontender, nondistended Genitourinary: has a mancera Extremities: no edema BLEs, no calf tenderness. Skin: See wound care note describing sacral and ischial area pressure ulcers. Psych Mental Status: mental status grossly normal Speech and Movement: speech clear Mood: congruent mood Affect: normal affect Objective Last Vital Signs Temp 36.1 C L 12/27/21 15:45 Pulse 84 12/27/21 15:45 Resp 15 12/27/21 15:45 BP 114/76 12/27/21 15:45 Pulse Ox 98 12/27/21 15:45 Reviewed Pertinent PMH: Yes
[2021-12-27] MEDS: Normal Saline 500 ML 30 ML IV (20:16)
[2021-12-27] MEDS: Magnesium Oxide 400 MG TAB PO (22:15)
[2021-12-27 22:45] VITALS: BP 116/77; PULSE 84; RESP 19; TEMP 37.2; O2SAT 97
[2021-12-28 00:09] VITALS: BP 113/78; PULSE 100; RESP 12; TEMP 37.4; O2SAT 96
[2021-12-28] MEDS: IMIPENEM/CILASTATIN 500 MG in Normal Saline 100 ML 200 MG IVPB ×4 (02:09→20:06)
[2021-12-28 05:00] VITALS: BP 113/78; PULSE 100; RESP 12; TEMP 37.4; O2SAT 96
[2021-12-28] MEDS: Gabapentin 300 MG CAP 600 MG PO ×3 (06:26→22:10)
[2021-12-28] MEDS: Protein Nutritional Supplement 16 GM 1 OUNCE PACKET PO ×3 (07:52→19:52)
[2021-12-28] MEDS: Multivitamin TAB 1 TAB PO (07:53)
[2021-12-28] MEDS: Midodrine 2.5 MG TAB 5 MG PO ×3 (07:53→17:21)
[2021-12-28] MEDS: Zinc Sulfate 220 MG TAB PO (07:54)
[2021-12-28] MEDS: Ascorbic Acid 500 MG TAB PO ×2 (07:54→20:03)
[2021-12-28] MEDS: Cyanocobalamin 500 MCG TAB 1000 MCG PO (07:54)
[2021-12-28] MEDS: Potassium Chloride 20 MEQ TABCR PO ×2 (07:54→20:03)
[2021-12-28] MEDS: Letrozole 2.5 MG TAB PO (07:54)
[2021-12-28] MEDS: Pantoprazole 40 MG TABCR PO (07:54)
[2021-12-28 08:30] VITALS: BP 82/68; PULSE 109; RESP 14; TEMP 37.1; O2SAT 97
[2021-12-28 09:22] VITALS: BP 118/84
[2021-12-28] MEDS: Normal Saline Flush 10 ML SYR IVP ×3 (16:23→22:10)
[2021-12-28] MEDS: Magnesium Oxide 400 MG TAB PO (22:10)
[2021-12-29] MEDS: IMIPENEM/CILASTATIN 500 MG in Normal Saline 100 ML 200 MG IVPB ×4 (01:56→20:07)
[2021-12-29 02:00] VITALS: BP 78/54; PULSE 106; RESP 20; TEMP 36.7; O2SAT 96
[2021-12-29] MEDS: Normal Saline Flush 10 ML SYR IVP ×3 (03:28→20:08)
[2021-12-29] MEDS: Gabapentin 300 MG CAP 600 MG PO ×3 (05:34→21:28)
[2021-12-29 07:40] VITALS: BP 91/62; PULSE 98; RESP 16; TEMP 36.7; O2SAT 93
[2021-12-29] MEDS: Cyanocobalamin 500 MCG TAB 1000 MCG PO (08:15)
[2021-12-29] MEDS: Ascorbic Acid 500 MG TAB PO ×2 (08:15→20:06)
[2021-12-29] MEDS: Pantoprazole 40 MG TABCR PO (08:17)
[2021-12-29] MEDS: Midodrine 2.5 MG TAB 5 MG PO ×3 (08:18→17:47)
[2021-12-29] MEDS: Letrozole 2.5 MG TAB PO (08:18)
[2021-12-29] MEDS: Multivitamin TAB 1 TAB PO (08:19)
[2021-12-29] MEDS: Potassium Chloride 20 MEQ TABCR PO ×2 (08:19→20:07)
[2021-12-29] MEDS: Zinc Sulfate 220 MG TAB PO (08:19)
[2021-12-29] MEDS: Protein Nutritional Supplement 16 GM 1 OUNCE PACKET PO ×3 (09:21→20:07)
[2021-12-29 15:28] VITALS: BP 132/87; PULSE 94; RESP 19; TEMP 36.6; O2SAT 97
[2021-12-29] MEDS: Magnesium Oxide 400 MG TAB PO (21:29)
[2021-12-30 01:14] VITALS: BP 111/77; PULSE 97; RESP 18; TEMP 37.5; O2SAT 93
[2021-12-30] MEDS: IMIPENEM/CILASTATIN 500 MG in Normal Saline 100 ML 200 MG IVPB ×2 (01:18→08:57)
[2021-12-30] MEDS: Acetaminophen 325 MG TAB PO (01:32)
[2021-12-30] MEDS: Normal Saline Flush 10 ML SYR IVP ×3 (02:36→08:55)
[2021-12-30 02:42] VITALS: TEMP 36.5
[2021-12-30 03:45] LABS: Bilirubin Negative (Negative); Blood Negative (Negative); Clarity Clear (Clear); Glucose Negative (Negative); Ketones Negative (Negative); Leukocyte Esterase Negative (Negative); Nitrite Negative (Negative); Specific Gravity 1.015 (1.005-1.025); Urobilinogen 0.2 EU/dL (Up TO 0.2)
[2021-12-30] MEDS: Gabapentin 300 MG CAP 600 MG PO ×2 (05:18→14:21)
[2021-12-30 07:29] LABS: Abs Immature Grans 0.01 10^3/uL (0.0-0.06); Absolute Basophil Count 0.02 10^3/uL (0.0-0.2); Absolute Eosinophil Count 0.16 10^3/uL (0.0-0.7); Absolute Lymphocyte Count 1.58 10^3/uL (1.2-3.4); Absolute Monocyte Count 0.33 10^3/uL (0.1-0.8); Absolute Neutrophil Count 1.58 10^3/uL (1.2-6.7); Basophils % 0.5; Eosinophils % 4.3; HCT 30.7 % (36.0-46.0); HGB 9.5 g/dL (11.2-15.7); Immature Grans % 0.3; Lymphocytes % 42.9; MCH 26.4 pg (27.0-33.0); MCHC 30.9 % (32.0-36.0); MCV 85 fL (80-95); MPV 9.4 fL (8.0-11.0); Platelet Count 273 10^3/uL (130-400); RDW-SD 46.5 fL; WBC 3.68 10^3/uL (4.4-10.8)
[2021-12-30 07:49] LABS: Anion Gap 7.6 mmol/L (3-11); BUN 17 mg/dL (7-18); CO2 28.4 mmol/L (21.0-32.0); CREATININE 0.4 mg/dL (0.55-1.02); Calcium 9.9 mg/dL (8.5-10.1); Chloride 104 mmol/L (98-107); Estimated GFR 112.53 (mL/min/1.73m2); Glucose 101 mg/dL (74-106); Magnesium 1.9 mg/dL (1.8-2.4); Potassium 4.1 mmol/L (3.5-5.1); Sodium 140 mmol/L (136-145)
[2021-12-30 07:53] VITALS: BP 90/58; PULSE 91; RESP 14; TEMP 36.2; O2SAT 94
[2021-12-30] MEDS: Protein Nutritional Supplement 16 GM 1 OUNCE PACKET PO ×2 (08:55→14:21)
[2021-12-30] MEDS: Zinc Sulfate 220 MG TAB PO (08:56)
[2021-12-30] MEDS: Pantoprazole 40 MG TABCR PO (08:56)
[2021-12-30] MEDS: Multivitamin TAB 1 TAB PO (08:56)
[2021-12-30] MEDS: Ascorbic Acid 500 MG TAB PO (08:56)
[2021-12-30] MEDS: Potassium Chloride 20 MEQ TABCR PO (08:56)
[2021-12-30] MEDS: Letrozole 2.5 MG TAB PO (08:56)
[2021-12-30] MEDS: Cyanocobalamin 500 MCG TAB 1000 MCG PO (08:57)
[2021-12-30] MEDS: Midodrine 2.5 MG TAB 5 MG PO ×2 (08:57→14:21)
--- NOTE | 2021-12-30 11:29 | W.PALLCONSUL ---
Date of service: 12/30/21 Time of Service: 11:29 COUNT INCLUDES THE [facility] All Active Problems (Updated 12/30/21 @ 09:38 by Isela Toro MD, [place]) Palliative care patient (Acute) Decubitus skin ulcer (Acute) Discharge planning issues (Acute) DVT prophylaxis (Acute) Chronic anemia (Chronic) Gram-negative bacteremia (Acute) UTI (urinary tract infection) (Acute) Medical History Hyperlipidemia Indwelling Paula catheter present Metastatic breast cancer Neurogenic bladder Non-insulin dependent diabetes mellitus Normocytic normochromic anemia Paraplegia Surgical History H/O bilateral mastectomy S/P cervical spinal fusion S/P IVC filter Family History Brother Hypertension Mother Breast cancer Other Heart disease Social History Smoking/Tobacco Use Status: Never Smoking risk assessment performed?: Yes Alcohol Intake: never Drug use: Never Substance use type: does not use Do you feel safe at home: Yes Do you feel safe in your relationship?: Yes Results Last Vital Signs Temp 97.2 F L 12/30/21 07:53 Pulse 91 H 12/30/21 07:53 Resp 14 12/30/21 07:53 BP 90/58 L 12/30/21 07:53 Pulse Ox 94 12/30/21 07:53 Labs Result diagrams: 12/30/21 06:05 12/30/21 06:05 Labs: Laboratory Results - last 24 hr 12/30/21 12/30/21 12/30/21 03:30 06:05 06:05 WBC 3.68 L RBC 3.60 L Hgb 9.5 L Hct 30.7 L MCV 85 MCH 26.4 L MCHC 30.9 L RDW 15.0 H Plt Count 273 MPV 9.4 Immature Gran % 0.3 Neutrophils % 43.0 Lymphocytes % 42.9 Monocytes % 9.0 Eosinophils % 4.3 Basophils % 0.5 Nucleated RBC % 0.0 Absolute Neutrophils 1.58 Absolute Lymphocytes 1.58 Absolute Monocytes 0.33 Absolute Eosinophils 0.16 Absolute Basophils 0.02 Sodium Potassium Chloride Carbon Dioxide Anion Gap BUN Creatinine Est GFR (CKD-EPI 2020) Glucose Calcium Magnesium 1.9 Urine Color Yellow Urine Clarity Clear Urine pH 6.0 Ur Specific [place] 1.015 Urine Protein Negative Urine Ketones Negative Urine Blood Negative Urine Nitrite Negative Urine Bilirubin Negative Urine Urobilinogen 0.2 Ur Leukocyte Esterase Negative Urine Glucose Negative 12/30/21 06:05 WBC RBC Hgb Hct MCV MCH MCHC RDW Plt Count MPV Immature Gran % Neutrophils % Lymphocytes % Monocytes % Eosinophils % Basophils % Nucleated RBC % Absolute Neutrophils Absolute Lymphocytes Absolute Monocytes Absolute Eosinophils Absolute Basophils Sodium 140 Potassium 4.1 Chloride 104 Carbon Dioxide 28.4 Anion Gap 7.6 BUN 17 Creatinine 0.4 L Est GFR (CKD-EPI 2020) 112.53 Glucose 101 Calcium 9.9 Magnesium Urine Color Urine Clarity Urine pH Ur Specific [place] Urine Protein Urine Ketones Urine Blood Urine Nitrite Urine Bilirubin Urine Urobilinogen Ur Leukocyte Esterase Urine Glucose
--- NOTE | 2021-12-30 12:50 | W.PALPGNOTE ---
Date of service: 12/30/21 Time of Service: 12:50 Assessment and Plan Assessment and plan (1) Gram-negative bacteremia: Status: Acute Assessment and plan: IV antibiotics complete (2) Paraplegia: (3) Indwelling Paula catheter present: Assessment and plan: Will need to be changed by Home Health (4) Palliative care patient: Status: Acute Assessment and plan: Wanda feels that she has good support at home. Her Danny is well versed in how to care for her. I did meet Danny after our talk. She will need home health, occupational medicine to determine need such as bed mattresses tables etc. She will need to have her catheter changed 1 month from when the last catheter was placed We did discuss her CODE STATUS. She is DNR/DNI but did not complete a POLST form previous to today. We did this together. She is a DNR/DNI, does not want a feeding tube. She will accept antibiotics for urinary tract infection or pneumonia. The original COLST was given to Wanda. A copy was sent to her PCP, [facility], ZEV H She and her asked me to come back into the room to discuss after life plans. She would like to have her body go to science. I explained that that is not very easy and needs to be prearranged. I will contact [facility] to find out the procedure I did review options for cremation in the event that they choose to have cremation rather than going through the application process for her body donation She does want to see an oncologist. Dr. Zimmerman he can make this arrangement. She does not really want more care but wants to see if there is other things that need to be done. We did talk about palliative care and helping with symptom control. We also did discuss hospice care, 6-month or less prognosis, not moving towards aggressive care but rather symptomatic care etc. she and her are thinking that might be a good option because they would be respite available. Subjective Subjective Interval history since last seen: Wanda is a 61-year-old woman with a history of metastatic breast cancer that went to several bones including her cervical spine. She states that 1 day she was walking out on the beach up and over rocks and the next day she was paralyzed from the neck down. She underwent an operation and was able to regain use of her arms and hands. She has an indwelling catheter and is bedbound. Overall she states that she has felt fine during her hospitalization. Initially she was seen in the emergency room and sent home but because of positive cultures returned for IV antibiotics. She and her recently moved here from [place]. Her has been doing all of her care. During her hospitalization she was found to have wounds on her buttocks. She had many questions about care now that she is in [place]. She plans to meet with her primary care physician Dr. Zimmerman for the first time on 01/04. She will need home health care. Exam Narrative Exam Narrative: Wanda is a 61-year-old woman lying in her bed. She is smiling, cooperative, polite. Her breathing is normal, lungs good air movement, heart regular. Abdomen soft nontender. Lower extremity no edema. She does have boots on to protect her heels. Objective Last Vital Signs Temp 97.2 F L 12/30/21 07:53 Pulse 91 H 12/30/21 07:53 Resp 14 12/30/21 07:53 BP 90/58 L 12/30/21 07:53 Pulse Ox 94 12/30/21 07:53 Laboratory Results - last 24 hr 12/30/21 12/30/21 12/30/21 03:30 06:05 06:05 WBC 3.68 L RBC 3.60 L Hgb 9.5 L Hct 30.7 L MCV 85 MCH 26.4 L MCHC 30.9 L RDW 15.0 H Plt Count 273 MPV 9.4 Immature Gran % 0.3 Neutrophils % 43.0 Lymphocytes % 42.9 Monocytes % 9.0 Eosinophils % 4.3 Basophils % 0.5 Nucleated RBC % 0.0 Absolute Neutrophils 1.58 Absolute Lymphocytes 1.58 Absolute Monocytes 0.33 Absolute Eosinophils 0.16 Absolute Basophils 0.02 Sodium Potassium Chloride Carbon Dioxide Anion Gap BUN Creatinine Est GFR (CKD-EPI 2020) Glucose Calcium Magnesium 1.9 Urine Color Yellow Urine Clarity Clear Urine pH 6.0 Ur Specific [place] 1.015 Urine Protein Negative Urine Ketones Negative Urine Blood Negative Urine Nitrite Negative Urine Bilirubin Negative Urine Urobilinogen 0.2 Ur Leukocyte Esterase Negative Urine Glucose Negative 12/30/21 06:05 WBC RBC Hgb Hct MCV MCH MCHC RDW Plt Count MPV Immature Gran % Neutrophils % Lymphocytes % Monocytes % Eosinophils % Basophils % Nucleated RBC % Absolute Neutrophils Absolute Lymphocytes Absolute Monocytes Absolute Eosinophils Absolute Basophils Sodium 140 Potassium 4.1 Chloride 104 Carbon Dioxide 28.4 Anion Gap 7.6 BUN 17 Creatinine 0.4 L Est GFR (CKD-EPI 2020) 112.53 Glucose 101 Calcium 9.9 Magnesium Urine Color Urine Clarity Urine pH Ur Specific [place] Urine Protein Urine Ketones Urine Blood Urine Nitrite Urine Bilirubin Urine Urobilinogen Ur Leukocyte Esterase Urine Glucose
--- NOTE | 2021-12-30 13:46 | W.PM.DS.N ---
Date of service: 12/30/21 Time of Service: 13:46 DS: Diagnosis Discharge Diagnosis (1) Gram-negative bacteremia: Status: Resolved Discharge Plan Disposition Patient Disposition: HOME W/HOME HEALTH SERVICE Condition: Good Discharge Details Reason For Visit: Swingbed Level 1-ESBL Bacteremia and UTI Admit Date/Time: 12/20/21 17:57 Admit Provider: Earnest Golden Attending Provider: Earnest Golden Primary Care Provider: Unknown,Unknown Hospital Course Hospital Course: Ms Back is a 61 year old female w/ PMHx of metastatic breast cancer metastatic to cervical spine resulting in paraplegia and neurogenic bladder, s/p indwelling mancera, as well as h/o IVC filter (prophylactic), T2DM (noninsulin dependent, diet controlled), hyperlipidemia, who was seen at the [facility] ED and discharged, then asked to return to the ED due to blood cultures from that visit being positive. At that time, she had presented with complaints of fatigue, subjective fever, (per ED record) cloudy urine and a clogged mancera catheter, which was exchanged. The patient also reported having had nausea/vomiting the day before. Both her urine and 2/4 blood cultures from the ED visit grew GNR. The patient had an elevated CRP of 20.80, procalcitonin of 0.8. Her lactate was 1.3. The patient denies sx of COVID-19. She is not vaccinated against COVID-19. Her PCR for Covid was negatvie. She has an appointment to establish care with Dr Zimmerman at [facility]. He was going to do a home visit, but she was admitted to the hospital. He will visit her once she is discharged. ESBL Klebsiella pneumoniae grew in urine culture and blood culture.? Resistant to Levaquin.? Primaxin initiated for a 2 week course. Pt agreeable to stay inpt as a swingbed I status. Wound care also evaluated patient for her sacral and ischial pressure-related ulcers.? A wound care plan initiated.? Her was shown how to perform the dressings for the ulcers. Two weeks after her first negative blood culture her urine was negative, Primain course completed and she was discharged to home via EMS with home health services to care for her wounds. She was seen by Palliative care and she has a home visit scheduled w Dr Zimmerman next week. Home Meds and New Rx's Prescriptions: New Santyl 250 unit/gram Ointment 7,500 unit topical DAILY Qty: 0 0RF cyanocobalamin (vitamin B-12) [Vitamin B-12] 500 mcg Tablet 1,000 mcg PO DAILY Qty: 0 0RF magnesium oxide 400 mg (241.3 mg magnesium) Tablet 400 mg PO HS Qty: 0 0RF multivitamin [Multiple Vitamins] Tablet 1 tab PO DAILY Qty: 0 0RF potassium chloride [Klor-Con M20] 20 mEq Tablet,Er Particles/Crystals 20 meq PO BID Qty: 30 0RF Continued baclofen 10 mg tablet 0.5 tab PO Q8H PRN Label Comments: Take half a tablet by mouth every 8 hours pantoprazole 40 mg Tablet,Delayed Release (Dr/Ec) 40 mg PO DAILY gabapentin 300 mg capsule 2 cap PO Q8H Label Comments: Take 2 capsules by mouth every 8 hours letrozole 2.5 mg tablet 1 tab PO DAILY Label Comments: 1 tablet daily midodrine 5 mg tablet 5 mg PO TID Qty: 10 0RF Rx Instructions: do not give last dose of day after 6PM or within 4 hrs of bedtime dabigatran etexilate [Pradaxa] 150 mg Capsule 150 mg PO BID fluticasone propionate [Flonase Allergy Relief] 50 mcg/actuation spray,suspension 2 spray INTRANASAL DAILY Label Comments: 2 sprays in each nostril daily Discharge Instructions Instructions: Catheter-associated Urinary Tract Infection (DC), Bacteremia (DC) Additional Instructions: [facility] will contact you to arrange a time they will come to your home to admit you to their services. Follow up with Dr Zimmerman - there is an appointment for you 01/04/2022 when he is going to do a home visit. You will be notified by his office regarding approximate time. Stand Alone Forms: Nursing Discharge Form Referrals: Eriberto Zimmerman MD [ NON-[facility] STAFF PHYSICIAN] - 01/04/22 3:45 pm () Activity:: Activity as Tolerated Equipment/Supplies:: W/C Diet:: As Tolerated Discharge Orders Discharge Orders: Discharge Order (Routine); Ordered 12/30/21 Ordered By: Jovanna Oliver Other Ambulatory Orders: Urinalysis (Routine) Timeframe: 20220103 Location: None Selected Ordered By: Jovanna Oliver Complete Blood Count w/Diff (Routine) Timeframe: 20220103 Location: None Selected Ordered By: Jovanna Oliver Comprehensive Metabolic Panel (Routine) Location: None Selected Ordered By: Jovanna Oliver Magnesium (Routine) Location: None Selected Ordered By: Jovanna Oliver Discharge Data Discharge Date/Time-TO BE ENTERED AT DEPARTURE: 12/30/21 16:01 DS: Summary Time Spent with Patient providing and/or coordinating discharge services: Less than 30 minutes Status at Discharge Functional status at discharge: bed bound Overall status at discharge: patient is progressing back to baseline Mental Status: mental status grossly normal Speech and Movement: speech and movement normal Mood: congruent mood Affect: normal affect Exam Psych Mental Status: mental status grossly normal Speech and Movement: speech and movement normal Mood: congruent mood Affect: normal affect DS: Data Vitals/I&O Vitals and I&O: Vital Signs Temperature 36.2 C L 12/30/21 07:53 Temperature Source Tympanic 12/30/21 07:53 Pulse 91 H 12/30/21 07:53 Pulse Rhythm Regular 12/30/21 09:56 Respiratory Rate 14 12/30/21 07:53 Respiratory Effort 12/30/21 09:56 Respiratory Depth Normal 12/30/21 09:56 Respiratory Pattern Normal 12/30/21 09:56 Blood Pressure 90/58 L 12/30/21 07:53 Pulse Oximetry 94 12/30/21 07:53 Oxygen Delivery Method Room Air 12/30/21 07:53 Oxygen Flow Rate 0 12/30/21 07:53 Pain Level 0 12/29/21 07:40 Comment 12/25/21 15:20 Intake & Output 12/29/21 12/30/21 12/30/21 23:59 11:59 23:59 Intake Total 800 / 1480 460 / 460 Output Total 750 / 4350 1750 / 2450 700 / 2450 Balance 50 / -2870 -1290 / -1989 - / Intake: IV 200 / 400 100 / 100 Oral 600 / 1080 360 / 360 Output: Urine 750 / 4350 1750 / 2450 700 / 2450 Other: Urine Color Yellow Yellow Yellow Urine Appearance Clear Clear Clear Stool Size Small Smear Moderate Stool Characteristics Soft Soft Soft Formed Data Completed and Pending Labs on day of discharge: Labs from last 24 hours 12/30/21 12/30/2112/30/22 06:05 06:05 06:05 WBC 3.68 L RBC 3.60 L Hgb 9.5 L Hct 30.7 L MCV 85 MCH 26.4 L MCHC 30.9 L RDW 15.0 H Plt Count 273 MPV 9.4 Immature Gran % 0.3 Neutrophils % 43.0 Lymphocytes % 42.9 Monocytes % 9.0 Eosinophils % 4.3 Basophils % 0.5 Nucleated RBC % 0.0 Absolute Neutrophils 1.58 Absolute Lymphocytes 1.58 Absolute Monocytes 0.33 Absolute Eosinophils 0.16 Absolute Basophils 0.02 Sodium 140 Potassium 4.1 Chloride 104 Carbon Dioxide 28.4 Anion Gap 7.6 BUN 17 Creatinine 0.4 L Est GFR (CKD-EPI 2020) 112.53 Glucose 101 Calcium 9.9 Magnesium 1.9 Urine Color Urine Clarity Urine pH Ur Specific [place] Urine Protein Urine Ketones Urine Blood Urine Nitrite Urine Bilirubin Urine Urobilinogen Ur Leukocyte Esterase Urine Glucose 12/30/21 03:30 WBC RBC Hgb Hct MCV MCH MCHC RDW Plt Count MPV Immature Gran % Neutrophils % Lymphocytes % Monocytes % Eosinophils % Basophils % Nucleated RBC % Absolute Neutrophils Absolute Lymphocytes Absolute Monocytes Absolute Eosinophils Absolute Basophils Sodium Potassium Chloride Carbon Dioxide Anion Gap BUN Creatinine Est GFR (CKD-EPI 2020) Glucose Calcium Magnesium Urine Color Yellow Urine Clarity Clear Urine pH 6.0 Ur Specific [place] 1.015 Urine Protein Negative Urine Ketones Negative Urine Blood Negative Urine Nitrite Negative Urine Bilirubin Negative Urine Urobilinogen 0.2 Ur Leukocyte Esterase Negative Urine Glucose Negative 12/30/21 06:20 Blood Blood Culture - Pending 12/30/21 06:05 Blood Blood Culture - Pending Preliminary micro results at discharge 12/30/21 06:20 Blood Culture - Pending Blood 12/30/21 06:05 Blood Culture - Pending Blood PFSH All Active Problems (Updated 12/31/21 @ 00:01 by GANESH US) Decubitus skin ulcer (Acute) Chronic anemia (Chronic) Medical History (Updated 12/31/21 @ 00:01 by GANESH US) Hyperlipidemia Indwelling Mancera catheter present Metastatic breast cancer Neurogenic bladder Non-insulin dependent diabetes mellitus Normocytic normochromic anemia Paraplegia Surgical History H/O bilateral mastectomy S/P cervical spinal fusion S/P IVC filter Family History Brother Hypertension Mother Breast cancer Other Heart disease Social History Smoking/Tobacco Use Status: Never Smoking risk assessment performed?: Yes Alcohol Intake: never Drug use: Never Substance use type: does not use Do you feel safe at home: Yes Do you feel safe in your relationship?: Yes
[2021-12-30] MEDS: Collagenase 30 GM TUBE TP (14:20)
--- NOTE | 2021-12-30 14:42 | PDOC.HHF2F_ITS ---
Home Health Certification Home Health Certification: 1. Encounter Date and Reason I certify that Wanda Back was seen by Jovanna Oliver NP on 12/30/21 and that I had a [id number] encounter with this patient that meets the physician face to face encounter requirements. 2. Clinical Findings Supporting Skilled Need and Homebound Status I certify that home health services are medically necessary, include either intermittent [place] [facility] and/or physical/speech therapy, and that this patient is homebound in that absences from the home require considerable and taxing effort and are infrequent or of short duration, or are attributable to the need to receive medical care. [X] (a) Attached documentation from encounter provides clinical findings supporting skilled need and homebound status (including what assistance patient requires to leave the home). The encounter with the patient was in whole, or in part, for the following medical condition, which is the primary reason for home health care: ESBL Bacteremia and UTI. Recent parapelegia; indwelling urinary catheter, pressure wounds to the coccyx area. Longterm:? Skilled observation, assessment and intervention of the patient?s condition including symptom control, vital signs, diet, disease process; education regarding medication and nutrition to the patient and care givers, to avoid further complications of her chronic condition.? Please draw a CBC, CMP & Magnesium - UA; Dx: D64.9; R78.81; L89.90. 01/03/2022; Results to PCP. She has a home visit scheduled for 01/04/2022 time TBA Perform routine indwelling urinary catheter care; change per institution policy and PRN Wound care: Left Ischial Tuberosity: 1. [place] with Anasept or equivalent.? 2. Allow to dwell for 2 minutes.? 3. Pat dry with gauze. 4. Apply skin prep to the sergei wound skin. 5. Apply a nickel thickness of Santyl to the wound bed. 6. Cover with Meplilex. 7. Change daily and prn. Encourage patient to off-load pressure. Sacrum: 1. [place] wound bed with Anasept spray and allow to dwell for 2 minutes. 2. [place] with gauze. 3. Apply skin prep to the sergei wound skin. 4. Apply Triad to the wound bed and allow to dry.? 5. Cover with Duoderm. Encourage patient to off-load pressure. Reposition pt every 1.5-2 hours with shorter periods on her back. Use at least 5 pillows for positioning. One behind back and hips, one between knees and ankles, one under top arm, two under her head tucked down low to her shoulders. When she is in a chair, offload pressure every 30 minutes. (Her wheelchair has a timed tilting feature). Consult wound care nurse for further wound orders Physical Therapy:?Assess and plan an exercise program to regain movement and strength, teach safety, energy conservation, and any assistive device evaluation and education. Occupational Therapy:?Assess and teach ability to perform ADL?s, safety. OUTSIDE SALES EXECUTIVE:?Assessment of social and emotional factors related to chronic disease, appropriate action to obtain available financial and community resources available. Homebound:??Patient is unable to ambulate further than 20 feet without frequent rest periods due to poor endurance. 3. Certification and Authentication I certify that I composed the above information based on my clinical judgment relating to this patient's medical condition and, if applicable, clinical findings communicated to me by the NPP or inpatient physician who performed the Home Health Referral. All further orders will be obtained through Dr Zimmerman. Wanda missed her home appointment to establish care because she was hospitalized. Dr Toro saw her in the hospital for Palliative Care and can provide any needed orders until Dr Zimmerman see's Wanda on
[2021-12-30 15:13] VITALS: BP 126/82; PULSE 83; RESP 18; TEMP 37.2; O2SAT 96
--- NOTE | 2021-12-30 15:54 | CHAPLAIN ---
Wanda is schedule to be discharged today and return home with her . When I visited, she was waiting to hear exactly when she'd be discharged. Her , Hao, was with her.
== END 2021-12-30 16:01 | disposition home health service (06) | DRG 689 ==
PROVIDERS: Nurse Practitioner Family; Admitting Provider Family Medicine; Visit Provider Family Medicine
DX: N39.0 Urinary tract infection, site not specified (principal); L89.223 Pressure ulcer of left hip, stage 3; C79.51 Secondary malignant neoplasm of bone; Z16.12 Extended spectrum beta lactamase (ESBL) resistance; Z16.23 Resistance to quinolones and fluoroquinolones; G82.20 Paraplegia, unspecified; D64.9 Anemia, unspecified; E11.9 Type 2 diabetes mellitus without complications; E53.8 Deficiency of other specified B group vitamins; B96.1 Klebsiella pneumoniae [K. pneumoniae] as the cause of diseases classified elsewhere; C50.919 Malignant neoplasm of unspecified site of unspecified female breast; N31.8 Other neuromuscular dysfunction of bladder; E78.5 Hyperlipidemia, unspecified; I95.9 Hypotension, unspecified; L89.152 Pressure ulcer of sacral region, stage 2; Z90.13 Acquired absence of bilateral breasts and nipples
CPT/HCPCS: 36410; 36415; 80048; 80053; 84145; 87040; 87077; 99305; 99307; 99315; 81003; 81015; 83735; 85025; 86140; 87086; 87186; 99232; J0743; J3490

== ENCOUNTER 2022-01-03 12:40 | Outpatient (REF) | payer BC, SELFPAY ==
[2022-01-03 14:24] LABS: Abs Immature Grans 0.02 10^3/uL (0.0-0.06); Absolute Basophil Count 0.02 10^3/uL (0.0-0.2); Absolute Eosinophil Count 0.21 10^3/uL (0.0-0.7); Absolute Lymphocyte Count 1.91 10^3/uL (1.2-3.4); Absolute Monocyte Count 0.35 10^3/uL (0.1-0.8); Absolute Neutrophil Count 2.68 10^3/uL (1.2-6.7); Basophils % 0.4; HCT 34.7 % (36.0-46.0); HGB 10.5 g/dL (11.2-15.7); Immature Grans % 0.4; Lymphocytes % 36.8; MCH 26.3 pg (27.0-33.0); MCHC 30.3 % (32.0-36.0); MCV 87 fL (80-95); Monocytes % 6.7; Neutrophils % 51.7; Platelet Count 244 10^3/uL (130-400); RBC 3.99 10^6/uL (3.93-5.22); RDW 15.3 % (11.7-14.6); WBC 5.19 10^3/uL (4.4-10.8)
== END 2022-01-03 12:41 | disposition home or self-care (01) ==
LOC: LBN 12:40
PROVIDERS: Visit Provider Family Medicine
DX: N39.0 Urinary tract infection, site not specified (principal); R78.81 Bacteremia
CPT/HCPCS: 80053; 83735; 85025

== ENCOUNTER 2022-01-19 16:24 | Outpatient (REF) | payer BC, SELFPAY | END 2022-01-19 16:25 | disposition home or self-care (01) | LOC: LBN 16:24 | PROVIDERS: Visit Provider Urology | DX: N31.9 Neuromuscular dysfunction of bladder, unspecified (principal); Z97.8 Presence of other specified devices | CPT/HCPCS: 87077; 87086; 87186 ==

== ENCOUNTER 2022-02-09 08:28 | Day surgery (SDC) | payer BC, SELFPAY ==
[2022-02-09] VITALS (8 sets, daily range): BP systolic 88–131; BP diastolic 57–85; PULSE 88–102; RESP 14–22; TEMP 36.7–37.2; O2SAT 87–98; BMI 26.5
--- NOTE | 2022-02-09 11:22 | W.ANESPRE ---
General Info Date of Service Date Performed: 02/09/22 Height: 5 ft 3 in Weight: 68.039 kg Body Mass Index (BMI): 26.5 Surgical Procedure: Operation Date: 02/09/22 11:10 Proposed Procedure Side Surgeon p Cystoscopy/Suprapubic Tube Insertion Aries Benson MD Meds Allergies and Home Medications Allergies Allergy/AdvReac Type Severity Reaction Status Date / Time No Known Allergies Allergy Verified 02/09/22 08:42 Home Medication Medication Instructions Recorded baclofen 10 mg tablet 0.5 tab PO Q8H PRN 12/14/21 gabapentin 300 mg capsule 2 cap PO Q8H 12/14/21 letrozole 2.5 mg tablet 1 tab PO DAILY 12/14/21 midodrine 5 mg tablet 5 mg PO TID #10 tabs 12/14/21 pantoprazole 40 mg tablet,delayed 40 mg PO DAILY 12/14/21 release dabigatran etexilate 150 mg 150 mg PO BID 12/16/21 capsule (Pradaxa) fluticasone propionate 50 2 spray intranasal DAILY 12/21/21 mcg/actuation nasal spray,suspension (Flonase Allergy Relief) collagenase clostridium histo. 250 7,500 unit topical DAILY #0 grams 12/30/21 unit/gram topical ointment (Santyl) cyanocobalamin (vitamin B-12) 500 1,000 mcg PO DAILY #0 tabs 12/30/21 mcg tablet (Vitamin B-12) magnesium oxide 400 mg (241.3 mg 400 mg PO HS #0 tabs 12/30/21 magnesium) tablet multivitamin (Multiple Vitamins 1 tab PO DAILY #0 tabs 12/30/21 tablet) potassium chloride 20 mEq 20 meq PO BID #30 tabs 12/30/21 tablet,extended release(part/cryst) (Klor-Con M) Current Visit Medications: Current Medications Generic Name Dose Route Start Last Admin Trade Name Freq PRN Reason Stop Dose Admin Ringer's Solution 1,000 mls @ 80 mls/hr 02/09/22 06:00 IV 03/10/22 23:59 INFUSION DANISHA IV Miscellaneous Supplies 1 each 02/09/22 06:00 Iv Access IV 03/10/22 23:59 DIRECTED DANISHA Sodium Chloride 0 ml 02/09/22 06:00 Normal Saline Flush 10 Ml Syr IV 03/10/22 23:59 PRN PRN Sodium Chloride 0 ml 02/09/22 06:00 Normal Saline 10 Ml Vial IJ 03/10/22 23:59 DIRECTED PRN Sterile Water 0 ml 02/09/22 06:00 Water,Injection,Sterile 10 Ml Vial IJ 03/10/22 23:59 DIRECTED PRN PFSH Active Problems Active Problems: Problem Status Onset Code Chronic anemia D64.9 Decubitus skin ulcer L89.[address] Z97.8 Recurrent breast cancer C50.919 Hx of mastectomy Z90.10 Spinal cord compression G95.20 Presence of inferior vena cava filter Z95.828 Prediabetes R73.03 Severe obesity E66.01 Fatty liver K76.0 Medical History Medical History (Updated 02/09/22 @ 08:41 by Anthony Melchor) GERD (gastroesophageal reflux disease) Hyperlipidemia Hypotension Indwelling Paula catheter present Metastatic breast cancer Neurogenic bladder Non-insulin dependent diabetes mellitus Normocytic normochromic anemia Paraplegia Medical History Comments:: Paraplegia, waist down; decubitus ulcer coccyx (left butt cheek) current home health treatment Surgical History Surgical History (Updated 02/09/22 @ 08:42 by Anthony Melchor) H/O bilateral mastectomy Hx of appendectomy S/P cervical spinal fusion S/P IVC filter Tobacco Smoking/Tobacco Use Status: Never Alcohol Alcohol Intake: never Substance Use Substance use: Never Substance use type: does not use Vital Signs and Lab Results Vital Signs Most Recent Vital Signs in EMR: Most Recent Vital Signs Temp Pulse Resp BP Pulse Ox 36.7 C 102 H 16 109/75 97 02/09/22 08:52 02/09/22 08:52 02/09/22 08:52 02/09/22 08:52 02/09/22 08:52 Lab Results Blood Type / Crossmatch: No Data to Display Complete Blood Count: No Data to Display Complete Metabolic Panel: No Data to Display Liver Function Panel: No Data to Display Coagulation Panel: No Data to Display Cardiac Panel: No Data to Display Arterial Blood Gas: No Data to Display Venous Blood Gas: No Data to Display Pancreas Panel: No Data to Display Thyroid Panel: No Data to Display Infectious Disease: No Data to Display Blood Cultures: No Data to Display Toxicology Panel: No Data to Display Anesthesia Assessment and Plan Anesthesia History Personal History: No History of Anesthesia Complications Family History: No Family History of Anesthesia Complications Exercise Tolerance Exercise Tolerance: Metabolic Equivalents>4 Pertinent Negatives Pertinent Negatives: No Symptoms of GERD, No Major Cardiovascular Symptoms or Complaints and No Major Pulmonary Symptoms or Complaints Cardiac & Pulmonary Exam Cardiac Exam: Normal S1/S2 Heart Sounds Pulmonary Exam: Clear Bilateral Breath Sounds Implantable Cardiac Device Does patient have a Pacemaker or an ICD?: No Airway Exam Known Difficult Airway: No Mallampati Class: 2 Mouth Opening: Normal (> 3cm) Thyromental Distance: Greater than 3 cm Neck Range of Motion: Full ROM Neck Circumference: Normal Teeth Condition: Normal Dentition ASA Classification ASA Score: ASA 3 Emergency Case?: No NPO Status NPO Status: NPO Clears >2 hours, Solids >8 hours Anesthesia Plan Resuscitation Status: Full Code Anesthesia Technique: General Anesthesia Airway Planned: Endotracheal Tube Monitors Used: Standard Monitors Preoperative Comments:: No movement limitation in neck, has sensation, but no motor control below T4
--- NOTE | 2022-02-09 12:03 | W.PM.HP.N ---
Date of service: 02/09/22 Time of Service: 12:03 Assessment and Plan Assessment and plan (1) Paula catheter in place: Status: Acute (2) Spinal cord compression: Status: Acute Assessment and plan: We will place a suprapubic tube to help with hygiene and subsequent catheter changes. History of Present Illness History of Present Illness Chief Complaint: Urinary retention Narrative: This is a 61-year-old woman who has a history of metastatic breast cancer with involvement of the spine.? As a result, she has spinal cord compression, paraplegia and a neurogenic bladder. She currently has an indwelling urethral catheter.? She has had a catheter in place since May 2021.? She and her have received conflicting information about catheter care and options.? They come in to discuss possibilities for bladder drainage. She has had at least 4 hospitalizations for urosepsis since May.? The most recent admission was a here at our facility.? Klebsiella was found in both the blood in the urine. Currently, she has a urethral catheter that is changed monthly by home health providers.? At times, the catheter is difficult to place.? The patient's recounts a time where there was no urine output for about 3 to 4 hours.? When the catheter was positioned properly, a large amount of urine was obtained.? There was no leakage of urine while the catheter was not draining. The patient expresses that she does not want a suprapubic tube.? She was under the impression that this type of tube would be painful for her. The patient's had been asked to do CIC for her, but he has not been able to do so.? The patient is wheelchair-bound and her mobility is compromised. She has no sensation from the waist down.? She is being managed for decubitus ulcer.? She has not had extensive abdominal surgery, with only an appendectomy on her past abdominal surgical list.? She comes in to discuss catheter management. Review of Systems Narrative: No fevers or chills No vision change or dysphasia No diabetes or thyroid dysfunction No shortness of breath, cough or hemoptysis No chest pain or palpitations No nausea, vomiting, hepatitis, ulcers, jaundice, diarrhea or constipation No sensation/movement lower abdomen and lower extremities. No seizures or strokes Hx DVT - has IVC filter PFSH All Active Problems (Updated 02/09/22 @ 08:41 by Anthony Melchor) Chronic anemia (Chronic) Decubitus skin ulcer (Acute) Paula catheter in place (Acute) Recurrent breast cancer (Acute) Hx of mastectomy (Chronic) Spinal cord compression (Acute) Presence of inferior vena cava filter (Acute) Prediabetes (Acute) Severe obesity (Acute) Fatty liver (Acute) Medical History (Updated 02/09/22 @ 08:41 by Anthony Melchor) GERD (gastroesophageal reflux disease) Hyperlipidemia Hypotension Indwelling Paula catheter present Metastatic breast cancer Neurogenic bladder Non-insulin dependent diabetes mellitus Normocytic normochromic anemia Paraplegia Surgical History (Updated 02/09/22 @ 08:42 by Anthony Melchor) H/O bilateral mastectomy Hx of appendectomy S/P cervical spinal fusion S/P IVC filter Family History Brother Hypertension Mother Breast cancer Other Heart disease Social History Smoking/Tobacco Use Status: Never Smoking risk assessment performed?: Yes Alcohol Intake: never Drug use: Never Substance use type: does not use Current gender identity: female Do you feel safe at home: Yes Additional Social history: unable to assess privately Meds Allergies and Home Medications Allergies Allergy/AdvReac Type Severity Reaction Status Date / Time No Known Allergies Allergy Verified 02/09/22 08:42 Home Medications Medication Instructions Recorded Confirmed Type baclofen 10 mg tablet 0.5 tab PO Q8H PRN 12/14/21 02/09/22 History gabapentin 300 mg capsule 2 cap PO Q8H 12/14/21 02/09/22 History letrozole 2.5 mg tablet 1 tab PO DAILY 12/14/21 02/09/22 History midodrine 5 mg tablet 5 mg PO TID #10 tabs 12/14/21 02/08/22 Rx pantoprazole 40 mg tablet,delayed 40 mg PO DAILY 12/14/21 02/08/22 History release dabigatran etexilate 150 mg 150 mg PO BID 12/16/21 02/09/22 History capsule (Pradaxa) fluticasone propionate 50 2 spray intranasal DAILY 12/21/21 02/09/22 History mcg/actuation nasal spray,suspension (Flonase Allergy Relief) collagenase clostridium histo. 250 7,500 unit topical DAILY #0 grams 12/30/21 02/09/22 Rx unit/gram topical ointment (Santyl) cyanocobalamin (vitamin B-12) 500 1,000 mcg PO DAILY #0 tabs 12/30/21 02/09/22 Rx mcg tablet (Vitamin B-12) magnesium oxide 400 mg (241.3 mg 400 mg PO HS #0 tabs 12/30/21 02/09/22 Rx magnesium) tablet multivitamin (Multiple Vitamins 1 tab PO DAILY #0 tabs 12/30/21 02/08/22 Rx tablet) potassium chloride 20 mEq 20 meq PO BID #30 tabs 12/30/21 02/09/22 Rx tablet,extended release(part/cryst) (Klor-Con M) Exam Const General: cooperative and comfortable Neck Neck: supple Resp Auscultation: clear to auscultation bilaterally Cardio Rate: regular rate Rhythm: regular rhythm GI Palpation: soft and no masses Other: urethral catheter in place Neuro General: patient alert and patient awake Motor: movement abnormality noted Results Last Vital Signs Temp 36.7 C 02/09/22 08:52 Pulse 102 H 02/09/22 08:52 Resp 16 02/09/22 08:52 BP 109/75 02/09/22 08:52 Pulse Ox 97 02/09/22 08:52
[2022-02-09] MEDS: levoFLOXacin 500 MG, levoFLOXacin 250 MG 750 MG PO (12:39)
[2022-02-09] MEDS: Lidocaine 2% Jelly 6 ML SYR (13:28)
[2022-02-09] MEDS: Lactated Ringers 1,000 ML 80 ML IV (13:30)
[2022-02-09] MEDS: Bupivacaine 0.25% Pres-Free 30 ML VIAL (13:32)
--- NOTE | 2022-02-09 13:39 | W.PM.DSUDISC ---
Date of service: 02/09/22 Time of Service: 13:39 Discharge Plan Disposition Patient Disposition: HOME Condition: Good Discharge Details Reason For Visit: suprapubic tube placement Attending Provider: Aries Benson Primary Care Provider: Eriberto Zimmerman Home Meds and New Rx's Prescriptions: No Action baclofen 10 mg tablet 0.5 tab PO Q8H PRN Label Comments: Take half a tablet by mouth every 8 hours pantoprazole 40 mg Tablet,Delayed Release (Dr/Ec) 40 mg PO DAILY gabapentin 300 mg capsule 2 cap PO Q8H Label Comments: Take 2 capsules by mouth every 8 hours letrozole 2.5 mg tablet 1 tab PO DAILY Label Comments: 1 tablet daily midodrine 5 mg tablet 5 mg PO TID Qty: 10 0RF Rx Instructions: do not give last dose of day after 6PM or within 4 hrs of bedtime dabigatran etexilate [Pradaxa] 150 mg Capsule 150 mg PO BID fluticasone propionate [Flonase Allergy Relief] 50 mcg/actuation spray,suspension 2 spray INTRANASAL DAILY Label Comments: 2 sprays in each nostril daily Santyl 250 unit/gram Ointment 7,500 unit topical DAILY Qty: 0 0RF cyanocobalamin (vitamin B-12) [Vitamin B-12] 500 mcg Tablet 1,000 mcg PO DAILY Qty: 0 0RF magnesium oxide 400 mg (241.3 mg magnesium) Tablet 400 mg PO HS Qty: 0 0RF multivitamin [Multiple Vitamins] Tablet 1 tab PO DAILY Qty: 0 0RF potassium chloride [Klor-Con M20] 20 mEq Tablet,Er Particles/Crystals 20 meq PO BID Qty: 30 0RF Discharge Instructions Additional Instructions: suprapubic tube to gravity drainage may change dressing to suprapubic site daily and prn Followup with me 4 to 6 weeks for 1st catheter change Activity:: Activity as Tolerated Remove Dressings/Wound Care:: 24 hours Shower/Bathe:: 24 hours Diet:: As Tolerated Discharge Orders Discharge Orders: Discharge Order (Routine); Ordered 02/09/22 Ordered By: Aries Benson DS: Diagnosis Discharge Diagnosis (1) Paula catheter in place: Status: Acute (2) Spinal cord compression: Status: Acute
--- NOTE | 2022-02-09 13:42 | W.PM.OP ---
Date of service: 02/09/22 Time of Service: 13:42 Operative Note Operative Note DATE OF PROCEDURE: 02/09/22 PRE-OP DIAGNOSIS: Urinary retention POST-OP DIAGNOSIS: same PROCEDURE: cystoscopy with insertion suprapubic tube SURGEON: Aries Benson ANESTHESIA TYPE: General:No Airway Refer to Anesthesia Record ESTIMATED BLOOD LOSS: 5 PATHOLOGY: none sent COMPLICATIONS: None Patient's condition: stable Implants: 16 Georgian suprapubic catheter with 10 cc sterile water in balloon Indications: A 61-year-old woman who has a history of metastatic breast cancer which is involved multiple levels of the spine. She has decreased motor function in the lower extremities and urinary retention. She currently has an indwelling urethral catheter. She presents to have her bladder drainage converted to suprapubic tube Procedure Description: Patient was given a preoperative dose of oral antibiotics. She was brought to the operating room on 02/09/2022. After successful induction of general anesthesia, she was placed in the dorsal lithotomy position. Her indwelling catheter was removed. Her genitalia and lower abdomen were then prepped and draped. 2% Xylocaine jelly was instilled into the urethra to act as a local anesthetic. A curved Clinton tractor was passed through the urethra and the tip of the retractor was held up against the abdominal wall. The abdominal wall was then infiltrated using quarter percent Marcaine. A small incision was made over the tip of the retractor and the tip was brought through the suprapubic area onto the abdominal wall. The jaws of the retractor were opened and we used the jaws to grasp a 16 Georgian catheter. We pulled the catheter back down through the suprapubic tract, into the bladder and out the urethra where the catheter was released from the retractor. The catheter was then repositioned while we did cystoscopy using a 17 Georgian cystoscope and a 70 degree lens. Once the tip of the catheter was visualized within the bladder, the catheter balloon was inflated with 10 cc of sterile water and the catheter was hooked to gravity drainage. A dry sterile dressing was applied to the suprapubic site.
--- NOTE | 2022-02-09 14:59 | W.ANESPOSTOP ---
Postoperative Evaluation Date, Time and Location Date Performed: 02/09/22 Time Performed: 14:59 Patient Location: Day Surgery Unit Vital Signs Most Recent Imported Vital Signs: Most Recent Vital Signs Temp Pulse Resp BP Pulse Ox 36.7 C 94 H 16 104/72 98 02/09/22 14:37 02/09/22 14:37 02/09/22 14:37 02/09/22 14:37 02/09/22 14:37 Pain Score Most Recent Pain Score: Most Recent Pain Score Pain Level 0 02/09/22 14:37 Assessment Mental Status: Awake (Alert & Oriented to Patient Baseline) Airway and Respiratory Function: Patent airway with normal (patient baseline) respiratory exam Cardiovascular Function: Hemodynamically Stable Hydration Status: Adequately Hydrated Nausea & Vomiting: No Nausea or Vomiting Pain: Pt. Denies Any Pain Peripheral Nerve Block: Patient did not receive a nerve block
== END 2022-02-09 15:35 | disposition home or self-care (01) ==
PROVIDERS: PCP Family Medicine; Visit Provider Urology
PROC: (CPT 51102; principal; 2022-02-09 11:00)
DX: R33.9 Retention of urine, unspecified (principal); R73.03 Prediabetes; G95.20 Unspecified cord compression
CPT/HCPCS: 51102; J1100; J2250; J2405; J2704

== ENCOUNTER 2022-04-17 18:00 | Outpatient (REF) | payer BC, SELFPAY ==
[2022-04-17 17:52] LABS: Bilirubin Negative (Negative); Blood Large (Negative); Clarity Cloudy (Clear); Glucose Negative (Negative); Ketones Negative (Negative); Leukocyte Esterase Large (Negative); Nitrite Positive (Negative); Specific Gravity <= 1.005 (1.005-1.025); Urobilinogen 0.2 EU/dL (Up TO 0.2); pH 6.5 (5-8)
[2022-04-17 18:02] LABS: Bacteria Many HPF (Negative); C & S Indicated? Yes; Casts Negative LPF (Negative); Crystals Negative HPF (Negative); Epithelial Cells Few HPF (Negative); Mucus Negative (Negative); WBC >50 HPF (0-5)
== END 2022-04-17 18:01 | disposition home or self-care (01) ==
LOC: NCHCN 18:00
PROVIDERS: PCP Family Medicine; Visit Provider Family Medicine
DX: R50.9 Fever, unspecified (principal)
CPT/HCPCS: 87077; 81003; 81015; 87086; 87186

== ENCOUNTER 2022-04-19 12:01 | Emergency (ER) | payer BC, SELFPAY ==
[2022-04-19] VITALS (30 sets, daily range): BP systolic 53–140; BP diastolic 21–115; PULSE 77–97; RESP 15–18; TEMP 36.8; O2SAT 94–100
--- NOTE | 2022-04-19 12:14 | ED.GENADUL_ITS ---
Discharge Plan Disposition Patient Disposition: Home Condition: Stable Discharge Details Clinical Impression: UTI (urinary tract infection) Primary Care Provider: Eriberto Zimmerman ED Provider: Selvin Crook Home Meds and New Rx's Prescriptions: Continued baclofen 10 mg tablet 0.5 tab PO Q8H PRN Label Comments: Take half a tablet by mouth every 8 hours pantoprazole 40 mg Tablet,Delayed Release (Dr/Ec) 40 mg PO DAILY gabapentin 300 mg capsule 2 cap PO Q8H Label Comments: Take 2 capsules by mouth every 8 hours letrozole 2.5 mg tablet 1 tab PO DAILY Label Comments: 1 tablet daily midodrine 5 mg tablet 5 mg PO TID Qty: 10 0RF Rx Instructions: do not give last dose of day after 6PM or within 4 hrs of bedtime dabigatran etexilate [Pradaxa] 150 mg Capsule 150 mg PO BID fluticasone propionate [Flonase Allergy Relief] 50 mcg/actuation spray,suspension 2 spray INTRANASAL DAILY Label Comments: 2 sprays in each nostril daily Santyl 250 unit/gram Ointment 7,500 unit topical DAILY Qty: 0 0RF cyanocobalamin (vitamin B-12) [Vitamin B-12] 500 mcg Tablet 1,000 mcg PO DAILY Qty: 0 0RF magnesium oxide 400 mg (241.3 mg magnesium) Tablet 400 mg PO HS Qty: 0 0RF multivitamin [Multiple Vitamins] Tablet 1 tab PO DAILY Qty: 0 0RF potassium chloride [Klor-Con M20] 20 mEq Tablet,Er Particles/Crystals 20 meq PO BID Qty: 30 0RF dabigatran etexilate 150 mg capsule PO Label Comments: TAKE ONE CAPSULE BY MOUTH TWICE A DAY Discharge Instructions Instructions: Urinary Tract Infection in Women (ED) Additional Instructions: A single dose of oral fosfomycin and IV dose of Zosyn given now. Case was discussed with our hospitalist team, Dr. Garvey who felt as though the oral fosfomycin was sufficient to treat the UTI and did not recommend admission. Please watch for new or worsening symptoms and return to the ER for any concerns. Lastly, please contact your PCP tomorrow to make them aware of your ER visit and need for outpatient reevaluation. Medical Decision Making This is a 62-year-old female with a past medical history of metastatic breast cancer, neurogenic bladder, diabetes, paraplegia, indwelling Paula catheter, recurrent UTIs and bacteremia, presenting having had her suprapubic catheter replaced on Sunday, urine culture came back today showing multiple antibiotic resistant UTI, susceptible to imipenem and Zosyn. Clinically she appears well, nontoxic. Plan to obtain IV access, give IV fluid, obtain routine screening laboratory values, urinalysis, blood cultures, lactate and will provide IV Zosyn. Laboratory values do not reveal any evidence of leukocytosis. Does have an elevated lactate of 1.9. Urinalysis positive for nitrate, moderate leuk esterase, greater than 50 white cells. COVID swab and blood cultures pending. Patient receiving IV Zosyn. Given she will likely require IV antibiotics, will discuss the case with our hospitalist team. Case discussed with Dr. Garvey. After reviewing the case she would like to look into potential oral fosfomycin prior to admission. She called back and reports that fosfomycin does in fact have Klebsiella coverage and therefore we should give a one time oral fosfomycin dose now. Changes reviewed catheter. Lastly, patient would not reflexively require admis gerald; however, if symptoms worsen or her cultures came back positive then obviously she would return to the ER. This was discussed with the patient and her family. They are comfortable with this plan. Suprapubic catheter changed. Fosfomycin given. Standard discharge and return precautions were provided. Patient understands, is agreeable to this plan, and has no additional questions or concerns upon discharge. This documentation was generated using [employer]en[employer] system, please disregard any oddities of phrase or misspellings. Medical Records Medical records reviewed: Yes I reviewed the patient's medical records. Lab Data Lab results reviewed: Yes I reviewed the patient's lab results. Labs: 04/19/22 13:00 Blood Blood Culture - Pending 04/19/22 13:42 Blood Blood Culture - Pending 04/19/22 12:31 Urine - Reflex from Ua Urine Culture - Pending Laboratory Tests Range/Units 04/19/22 04/19/22 04/19/22 12:31 13:42 13:42 WBC (4.4-10.8) 10^3/uL 7.65 RBC (3.93-5.22) 10^6/uL 3.86 L Hgb (11.2-15.7) g/dL 9.2 L Hct (36.0-46.0) % 29.9 L MCV (80-95) fL 78 L MCH (27.0-33.0) pg 23.8 L MCHC (32.0-36.0) % 30.8 L RDW (11.7-14.6) % 15.9 H Plt Count (130-400) 10^3/uL 411 H MPV (8.0-11.0) fL 8.7 Immature Gran % 0.7 Neutrophils % 63.1 Lymphocytes % 24.6 Monocytes % 8.4 Eosinophils % 2.7 Basophils % 0.5 Nucleated RBC % (0.0-0.3) % 0.0 Absolute Neutrophils (1.2-6.7) 10^3/uL 4.83 Absolute Lymphocytes (1.2-3.4) 10^3/uL 1.88 Absolute Monocytes (0.1-0.8) 10^3/uL 0.64 Absolute Eosinophils (0.0-0.7) 10^3/uL 0.21 Absolute Basophils (0.0-0.2) 10^3/uL 0.04 VBG Lactate (0.6-1.4) mmol/L Sodium (136-145) mmol/L 134 L Potassium (3.5-5.1) mmol/L 4.2 Chloride (98-107) mmol/L 97 L Carbon Dioxide (21.0-32.0) mmol/L 24.8 Anion Gap (3-11) mmol/L 12.2 H BUN (7-18) mg/dL 10 Creatinine (0.55-1.02) mg/dL 0.6 Est GFR (CKD-EPI 2020) (mL/min/1.73m2) 101.42 Glucose (74-106) mg/dL 108 H Calcium (8.5-10.1) mg/dL 10.2 H Total Bilirubin (0.2-1.0) mg/dL 0.3 AST (15-37) U/L 21 ALT (14-59) U/L 8 L Alkaline Phosphatase (46-116) U/L 123 H Total Protein (6.4-8.2) g/dL 9.1 H Albumin (3.4-5.0) g/dL 3.1 L Lipase (73-393) U/L 128 Urine Color (Yellow) Yellow Urine Clarity (Clear) Sl Cloudy Urine pH (5-8) 6.0 Ur Specific [place] (1.005-1.025) 1.010 Urine Protein (Negative) mg/dL Negative Urine Ketones (Negative) mg/dL Negative Urine Blood (Negative) Small H Urine Nitrite (Negative) Positive H Urine Bilirubin (Negative) Negative Urine Urobilinogen (Up TO 0.2) EU/dL 0.2 Ur Leukocyte Esterase (Negative) Moderate H Urine RBC (0-2) HPF 5-10 H Urine WBC (0-5) HPF >50 H Ur Epithelial Cells (Negative) HPF Few Urine Crystals (Negative) HPF Rare Calcium Oxalate Urine Bacteria (Negative) HPF Many Urine Mucus Not Applicable Ur Culture Indicated? Yes Urine Glucose (Negative) mg/dL Negative COVID-19 Source SARS-CoV-2 (PCR) (Negative) Range/Units 04/19/22 04/19/22 13:42 14:02 WBC (4.4-10.8) 10^3/uL RBC (3.93-5.22) 10^6/uL Hgb (11.2-15.7) g/dL Hct (36.0-46.0) % MCV (80-95) fL MCH (27.0-33.0) pg MCHC (32.0-36.0) % RDW (11.7-14.6) % Plt Count (130-400) 10^3/uL MPV (8.0-11.0) fL Immature Gran % Neutrophils % Lymphocytes % Monocytes % Eosinophils % Basophils % Nucleated RBC % (0.0-0.3) % Absolute Neutrophils (1.2-6.7) 10^3/uL Absolute Lymphocytes (1.2-3.4) 10^3/uL Absolute Monocytes (0.1-0.8) 10^3/uL Absolute Eosinophils (0.0-0.7) 10^3/uL Absolute Basophils (0.0-0.2) 10^3/uL VBG Lactate (0.6-1.4) mmol/L 1.9 H Sodium (136-145) mmol/L Potassium (3.5-5.1) mmol/L Chloride (98-107) mmol/L Carbon Dioxide (21.0-32.0) mmol/L Anion Gap (3-11) mmol/L BUN (7-18) mg/dL Creatinine (0.55-1.02) mg/dL Est GFR (CKD-EPI 2020) (mL/min/1.73m2) Glucose (74-106) mg/dL Calcium (8.5-10.1) mg/dL Total Bilirubin (0.2-1.0) mg/dL AST (15-37) U/L ALT (14-59) U/L Alkaline Phosphatase (46-116) U/L Total Protein (6.4-8.2) g/dL Albumin (3.4-5.0) g/dL Lipase (73-393) U/L Urine Color (Yellow) Urine Clarity (Clear) Urine pH (5-8) Ur Specific [place] (1.005-1.025) Urine Protein (Negative) mg/dL Urine Ketones (Negative) mg/dL Urine Blood (Negative) Urine Nitrite (Negative) Urine Bilirubin (Negative) Urine Urobilinogen (Up TO 0.2) EU/dL Ur Leukocyte Esterase (Negative) Urine RBC (0-2) HPF Urine WBC (0-5) HPF Ur Epithelial Cells (Negative) HPF Urine Crystals (Negative) HPF Urine Bacteria (Negative) HPF Urine Mucus Ur Culture Indicated? Urine Glucose (Negative) mg/dL COVID-19 Source Nasal/Nares SARS-CoV-2 (PCR) (Negative) Negative HPI General Mode of arrival: wheelchair . Date/Time Provider Initiated Documentation: 04/19/22 12:05 . Limitations to Documentation: no limitations . Information obtained by: patient . HPI Narrative: This is a 62-year-old female with a past medical history of metastatic breast cancer, metastasis to the spine, now paraplegic, GERD, hyperlipidemia, neurogenic bladder, indwelling Paula catheter, diabetes, presenting to the ER having had her suprapubic catheter changed on Sunday, urine culture today resulted as multi antibiotic resistant UTI, simply not feeling well in the evening over the past week, subjective fevers and confusion. Patient with no acute concerns or complaints at this time. They received a call from their PCP who recommended coming to the ER for IV antibiotics. When reviewing the culture sensitivity, only susceptible to imipenem and Zosyn. Patient reports that she is taking all of her regular medications as directed. Related Data Home Medications Medication Instructions Recorded Confirmed baclofen 10 mg tablet 0.5 tab PO Q8H PRN 12/14/21 04/19/22 gabapentin 300 mg capsule 2 cap PO Q8H 12/14/21 04/19/22 letrozole 2.5 mg tablet 1 tab PO DAILY 12/14/21 04/19/22 midodrine 5 mg tablet 5 mg PO TID #10 tabs 12/14/21 04/19/22 pantoprazole 40 mg tablet,delayed 40 mg PO DAILY 12/14/21 04/19/22 release dabigatran etexilate 150 mg 150 mg PO BID 12/16/21 04/19/22 capsule (Pradaxa) fluticasone propionate 50 2 spray intranasal DAILY 12/21/21 04/19/22 mcg/actuation nasal spray,suspension (Flonase Allergy Relief) collagenase clostridium histo. 250 7,500 unit topical DAILY #0 grams 12/30/21 04/19/22 unit/gram topical ointment (Santyl) cyanocobalamin (vitamin B-12) 500 1,000 mcg PO DAILY #0 tabs 12/30/21 04/19/22 mcg tablet (Vitamin B-12) magnesium oxide 400 mg (241.3 mg 400 mg PO HS #0 tabs 12/30/21 04/19/22 magnesium) tablet multivitamin (Multiple Vitamins 1 tab PO DAILY #0 tabs 12/30/21 04/19/22 tablet) potassium chloride 20 mEq 20 meq PO BID #30 tabs 12/30/21 04/19/22 tablet,extended release(part/cryst) (Klor-Con M) dabigatran etexilate 150 mg capsule mg PO 04/19/22 Previous Rx's Medication Instructions Recorded midodrine 5 mg tablet 5 mg PO TID #10 tabs 12/14/21 collagenase clostridium histo. 250 7,500 unit topical DAILY #0 grams 12/30/21 unit/gram topical ointment (Santyl) cyanocobalamin (vitamin B-12) 500 1,000 mcg PO DAILY #0 tabs 12/30/21 mcg tablet (Vitamin B-12) magnesium oxide 400 mg (241.3 mg 400 mg PO HS #0 tabs 12/30/21 magnesium) tablet multivitamin (Multiple Vitamins 1 tab PO DAILY #0 tabs 12/30/21 tablet) potassium chloride 20 mEq 20 meq PO BID #30 tabs 12/30/21 tablet,extended release(part/cryst) (Klor-Con M) Allergies Allergy/AdvReac Type Severity Reaction Status Date / Time No Known Allergies Allergy Verified 02/09/22 08:42 General Stated Complaint: Urinary EMILY: 3 Review of Systems Constitutional Constitutional: Reports fever(s) (Subjective) Cardiovascular Cardiovascular: Denies dyspnea Respiratory Respiratory: Denies cough and Denies dyspnea Gastrointestinal Gastrointestinal: Denies vomiting Genitourinary Genitourinary: Denies hematuria Integumentary/Breasts Skin/Breast: Denies rash PFSH All Active Problems (Updated 04/19/22 @ 15:04 by PILLO Forde) UTI (urinary tract infection) (Acute) Ambulatory dysfunction (Acute) Chronic anemia (Chronic) Decubitus skin ulcer (Acute) Paula catheter in place (Acute) Recurrent breast cancer (Acute) Hx of mastectomy (Chronic) Spinal cord compression (Acute) Presence of inferior vena cava filter (Acute) Prediabetes (Acute) Severe obesity (Acute) Fatty liver (Acute) Medical History GERD (gastroesophageal reflux disease) Hyperlipidemia Hypotension Indwelling Paula catheter present Metastatic breast cancer Neurogenic bladder Non-insulin dependent diabetes mellitus Normocytic normochromic anemia Paraplegia Surgical History H/O bilateral mastectomy Hx of appendectomy S/P cervical spinal fusion S/P IVC filter Family History Brother Hypertension Mother Breast cancer Other Heart disease Social History Smoking/Tobacco Use Status: Never Smoking risk assessment performed?: Yes Alcohol Intake: never Drug use: Never Substance use type: does not use Current gender identity: female Do you feel safe at home: Yes Do you feel safe in your relationship?: Yes Additional Social history: unable to assess privately Exam Const General: cooperative, comfortable and no acute distress Orientation: alert, awake and oriented x3 HENMT Head: normal to inspection, normocephalic and atraumatic Face and sinus: normal facial exam Mouth: moist mucous membranes Throat: posterior oropharynx normal Eyes General: appearance normal, both eyes and all related structures Conjunctivae: conjunctivae normal Neck Neck: normal visual inspection, trachea midline and supple Resp Effort & Inspection: normal respiratory effort and able to speak in complete sentences Auscultation: clear to auscultation bilaterally Cardio Rate: regular rate Rhythm: regular rhythm GI Inspection: obesity Palpation: soft and not firm Auscultation: normal bowel sounds Other: Suprapubic catheter in place, draining yellow urine. Skin General skin exam: no rashes or lesions noted Neuro General: patient alert, patient awake and no focal motor deficits Cognition: normal cognition Speech: speech normal Extrem General: normal to inspection Psych Appearance: grossly normal Mental Status: mental status grossly normal Course Vital Signs Vital signs: Vital Signs Temperature 36.8 C 04/19/22 12:04 Pulse 90 04/19/22 12:04 Respiratory Rate 18 04/19/22 12:04 Blood Pressure 113/69 04/19/22 12:04 Pulse Oximetry 98 04/19/22 12:04 Temperature 36.8 C 04/19/22 12:04 Temperature Source Oral 04/19/22 12:04 Pulse 90 04/19/22 12:04 Respiratory Rate 18 04/19/22 12:04 Blood Pressure 113/69 04/19/22 12:04 Blood Pressure Position Sitting 04/19/22 12:04 Pulse Oximetry 98 04/19/22 12:04 Oxygen Delivery Method Room Air 04/19/22 12:04 Oxygen Flow Rate 0 04/19/22 12:04 Pain Level 0 04/19/22 12:04
[2022-04-19 12:38] LABS: Bilirubin Negative (Negative); Blood Small (Negative); Clarity Sl Cloudy (Clear); Glucose Negative (Negative); Ketones Negative (Negative); Leukocyte Esterase Moderate (Negative); Nitrite Positive (Negative); Urobilinogen 0.2 EU/dL (Up TO 0.2)
[2022-04-19 13:00] LABS: WBC >50 HPF (0-5)
[2022-04-19 13:01] LABS: Bacteria Many HPF (Negative); Crystals Rare Calcium Oxalate HPF (Negative); Epithelial Cells Few HPF (Negative)
[2022-04-19 13:02] LABS: C & S Indicated? Yes
[2022-04-19 13:51] LABS: Lactate 1.9 mmol/L (0.6-1.4)
[2022-04-19 13:52] LABS: Abs Immature Grans 0.05 10^3/uL (0.0-0.06); Absolute Basophil Count 0.04 10^3/uL (0.0-0.2); Absolute Eosinophil Count 0.21 10^3/uL (0.0-0.7); Absolute Lymphocyte Count 1.88 10^3/uL (1.2-3.4); Absolute Monocyte Count 0.64 10^3/uL (0.1-0.8); Absolute Neutrophil Count 4.83 10^3/uL (1.2-6.7); Basophils % 0.5; Eosinophils % 2.7; HCT 29.9 % (36.0-46.0); HGB 9.2 g/dL (11.2-15.7); Immature Grans % 0.7; Lymphocytes % 24.6; MCH 23.8 pg (27.0-33.0); MCHC 30.8 % (32.0-36.0); MCV 78 fL (80-95); MPV 8.7 fL (8.0-11.0); Monocytes % 8.4; Neutrophils % 63.1; Platelet Count 411 10^3/uL (130-400); RBC 3.86 10^6/uL (3.93-5.22); RDW 15.9 % (11.7-14.6); RDW-SD 45.3 fL; WBC 7.65 10^3/uL (4.4-10.8)
[2022-04-19 14:06] LABS: Source Nasal/Nares
[2022-04-19 14:11] LABS: ALT 8 U/L (14-59); AST 21 U/L (15-37); Albumin 3.1 g/dL (3.4-5.0); Alkaline Phosphatase 123 U/L (46-116); Anion Gap 12.2 mmol/L (3-11); BUN 10 mg/dL (7-18); Bilirubin, Total 0.3 mg/dL (0.2-1.0); CO2 24.8 mmol/L (21.0-32.0); CREATININE 0.6 mg/dL (0.55-1.02); Calcium 10.2 mg/dL (8.5-10.1); Chloride 97 mmol/L (98-107); Estimated GFR 101.42 (mL/min/1.73m2); Glucose 108 mg/dL (74-106); Potassium 4.2 mmol/L (3.5-5.1); Sodium 134 mmol/L (136-145); Total Protein 9.1 g/dL (6.4-8.2)
[2022-04-19] MEDS: Normal Saline 1,000 ML 1000 ML IV (14:24)
[2022-04-19] MEDS: PIPERACILLIN/TAZO 3.375 GM in Normal Saline 50 ML IVPB (14:25)
[2022-04-19 14:30] LABS: Lipase 128 U/L (73-393)
[2022-04-19 14:38] LABS: COVID-19 PCR Negative (Negative)
[2022-04-19] MEDS: Fosfomycin Tromethamine 3 GM PACKET PO (15:12)
--- NOTE | 2022-04-24 16:43 | NUR.NOTE ---
Nursing Note:Accessed chart to look up whether or not on antibiotic. Reported 04/19 told to return. Came back 04/20 and was admitted
== END 2022-04-19 16:20 | disposition home or self-care (01) ==
PROVIDERS: Emergency Provider Physician Assistant; PCP Family Medicine
DX: N39.0 Urinary tract infection, site not specified (principal); E78.5 Hyperlipidemia, unspecified; E11.9 Type 2 diabetes mellitus without complications; Z85.3 Personal history of malignant neoplasm of breast; Z20.822 Contact with and (suspected) exposure to COVID-19; Z85.830 Personal history of malignant neoplasm of bone
CPT/HCPCS: 36415; 80053; 83690; 87040; 87077; 87635; 96365; 99284; 81003; 81015; 83605; 85025; 87086; 87186; J2543; J3490

== ENCOUNTER 2022-04-20 21:20 | Inpatient (IN) | payer BC, SELFPAY ==
[2022-04-20 21:24] VITALS: BP 116/77; PULSE 123; RESP 19; TEMP 39.6; O2SAT 93
--- NOTE | 2022-04-20 21:30 | DI.RAD_ITS ---
Exam(s) XR PORTABLE CHEST AP EXAM: XR PORTABLE CHEST AP CLINICAL HISTORY: fever, eval for pneumonia TECHNIQUE: 2D digital imaging was performed of the chest. One image was obtained. An AP view was ob tained. COMPARISON: CR XR PORTABLE CHEST AP from 12/15/2021 FINDINGS: MEDIASTINUM: Normal. HEART: Normal. PULMONARY VASCULATURE: Normal. LUNGS: Clear. PLEURAL SPACE: No pleural effusion or pneumothorax. BONE:Within normal limits for the patient's age. Postsurgical changes in the cervical spine. OTHER FINDINGS:Surgical clips in the chest wall and axilla. IMPRESSION: No acute pulmonary findings. DATA REPOSITORY: RADIATION DOSE DELIVERED:
--- NOTE | 2022-04-20 21:43 | W.ED.GENAD ---
Discharge Plan Disposition Patient Disposition: Admit to [facility] Condition: Stable Discharge Details Chief Complaint: GenMedical Clinical Impression: Bacteremia, UTI (urinary tract infection), Sepsis Primary Care Provider: Eriberto Zimmerman ED Provider: Wilfredo Cordon Home Meds and New Rx's Prescriptions: No Action baclofen 10 mg tablet 0.5 tab PO Q8H PRN Label Comments: Take half a tablet by mouth every 8 hours pantoprazole 40 mg Tablet,Delayed Release (Dr/Ec) 40 mg PO DAILY gabapentin 300 mg capsule 2 cap PO Q8H Label Comments: Take 2 capsules by mouth every 8 hours letrozole 2.5 mg tablet 1 tab PO DAILY Label Comments: 1 tablet daily midodrine 5 mg tablet 5 mg PO TID Qty: 10 0RF Rx Instructions: do not give last dose of day after 6PM or within 4 hrs of bedtime dabigatran etexilate [Pradaxa] 150 mg Capsule 150 mg PO BID fluticasone propionate [Flonase Allergy Relief] 50 mcg/actuation spray,suspension 2 spray INTRANASAL DAILY Label Comments: 2 sprays in each nostril daily Santyl 250 unit/gram Ointment 7,500 unit topical DAILY Qty: 0 0RF cyanocobalamin (vitamin B-12) [Vitamin B-12] 500 mcg Tablet 1,000 mcg PO DAILY Qty: 0 0RF magnesium oxide 400 mg (241.3 mg magnesium) Tablet 400 mg PO HS Qty: 0 0RF multivitamin [Multiple Vitamins] Tablet 1 tab PO DAILY Qty: 0 0RF potassium chloride [Klor-Con M20] 20 mEq Tablet,Er Particles/Crystals 20 meq PO BID Qty: 30 0RF dabigatran etexilate 150 mg capsule PO Label Comments: TAKE ONE CAPSULE BY MOUTH TWICE A DAY Medical Decision Making Pleasant 62-year-old female with a past medical history of metastatic breast cancer, cervical fusion, inferior vena cava filter still on Pradaxa, type 2 diabetes, chronic anemia, high cholesterol, chronic suprapubic catheter, chronic paraplegia secondary to previous spinal metastases of her breast cancer, who presents today for evaluation of fever. Patient was here just yesterday. UTI was noted. Previous urine cultures demonstrated notably resistant Klebsiella. Patient clinically improved here in the ED. Plan for admission was discussed with the hospitalist team and it was requested by hospitalist team to trial the patient for home treatment after dose of fosfomycin was given, as at that time the patient did not demonstrate evidence of septicemia. Discussion was held with the patient, and through shared decision-making process patient was discharged. Unfortunately the blood cultures have returned today and are positive for gram-positive organism. Her urine is positive for a gram-negative organism. Family admits that the patient has had continued fevers over the last 48 hours. They seem to be resolving with Tylenol. Patient does have a chronic left decubitus ulcer, but this has been unchanged. She denies any new cough. No other complaints at this time. No other modifying factors. M demonstrates well-appearing female, mildly tachycardic. She is febrile here. We will start vancomycin and Zosyn and antipyretics. We will give a gentle fluid bolus. Additionally patient does have a notable chronic ulcer in her left gluteal/decubitus area. This may be a potential source of the gram-positive blood cultures. We will also get a portable chest x-ray to rule out pneumonia. I discussed the case with the hospitalist Dr. Painter, he agrees with the plan. I will place admission orders on his behalf. I have extensively reviewed the treatment plan with the patient. I have addressed all patient concerns at this time. I have also discussed the plan with the admitting physician and they agree with the current assessment and plan and have agreed to assume responsibility for the patient. All parties demonstrate verbal understanding and agreement with our assessment and plan at this time. The documentation in this chart was dictated using [employer] dictation software. Please excuse any dictation errors. FINDINGS: Lungs: Unremarkable. No consolidation. Pleural spaces: Unremarkable. No pleural effusion. No pneumothorax. Heart/Mediastinum: Unremarkable. No cardiomegaly. Bones/joints: Degenerative skeletal changes. Previous cervical spine fusion. Old posterior right rib fracture. Soft tissues: Surgical clips across the chest wall bilaterally and within the axilla. Consider possibility of previous mastectomy procedure. IMPRESSION: 1. No acute findings. 2. No lung infiltrates or edema. 3. No pleural effusion. 4. Normal heart size. 5. Degenerative thoracic spine. Previous lower cervical spine fusion. Thank you for allowing us to participate in the care of your patient HPI General Date/Time Provider Initiated Documentation: 04/20/22 21:23. HPI Narrative: Pleasant 62-year-old female with a past medical history of metastatic breast cancer, cervical fusion, inferior vena cava filter still on Pradaxa, type 2 diabetes, chronic anemia, high cholesterol, chronic suprapubic catheter, chronic paraplegia secondary to previous spinal metastases of her breast cancer, who presents today for evaluation of fever. Patient was here just yesterday. UTI was noted. Previous urine cultures demonstrated notably resistant Klebsiella. Patient clinically improved here in the ED. Plan for admission was discussed with the hospitalist team and it was requested by hospitalist team to trial the patient for home treatment after dose of fosfomycin was given, as at that time the patient did not demonstrate evidence of septicemia. Discussion was held with the patient, and through shared decision-making process patient was discharged. Unfortunately the blood cultures have returned today and are positive for gram-positive organism. Her urine is positive for a gram-negative organism. Family admits that the patient has had continued fevers over the last 48 hours. They seem to be resolving with Tylenol. Patient does have a chronic left decubitus ulcer, but this has been unchanged. She denies any new cough. No other complaints at this time. No other modifying factors. Related Data Home Medications Medication Instructions Recorded Confirmed baclofen 10 mg tablet 0.5 tab PO Q8H PRN 12/14/21 04/20/22 gabapentin 300 mg capsule 2 cap PO Q8H 12/14/21 04/20/22 letrozole 2.5 mg tablet 1 tab PO DAILY 12/14/21 04/20/22 midodrine 5 mg tablet 5 mg PO TID #10 tabs 12/14/21 04/20/22 pantoprazole 40 mg tablet,delayed 40 mg PO DAILY 12/14/21 04/20/22 release dabigatran etexilate 150 mg 150 mg PO BID 12/16/21 04/20/22 capsule (Pradaxa) fluticasone propionate 50 2 spray intranasal DAILY 12/21/21 04/20/22 mcg/actuation nasal spray,suspension (Flonase Allergy Relief) collagenase clostridium histo. 250 7,500 unit topical DAILY #0 grams 12/30/21 04/20/22 unit/gram topical ointment (Santyl) cyanocobalamin (vitamin B-12) 500 1,000 mcg PO DAILY #0 tabs 09/23/22 01/12/23 mcg tablet (Vitamin B-12) magnesium oxide 400 mg (241.3 mg 400 mg PO HS #0 tabs 12/30/21 04/20/22 magnesium) tablet multivitamin (Multiple Vitamins 1 tab PO DAILY #0 tabs 12/30/21 04/20/22 tablet) potassium chloride 20 mEq 20 meq PO BID #30 tabs 12/30/21 04/20/22 tablet,extended release(part/cryst) (Klor-Con M) dabigatran etexilate 150 mg capsule mg PO 04/19/22 Previous Rx's Medication Instructions Recorded midodrine 5 mg tablet 5 mg PO TID #10 tabs 12/14/21 collagenase clostridium histo. 250 7,500 unit topical DAILY #0 grams 12/30/21 unit/gram topical ointment (Santyl) cyanocobalamin (vitamin B-12) 500 1,000 mcg PO DAILY #0 tabs 12/30/21 mcg tablet (Vitamin B-12) magnesium oxide 400 mg (241.3 mg 400 mg PO HS #0 tabs 12/30/21 magnesium) tablet multivitamin (Multiple Vitamins 1 tab PO DAILY #0 tabs 12/30/21 tablet) potassium chloride 20 mEq 20 meq PO BID #30 tabs 12/30/21 tablet,extended release(part/cryst) (Klor-Con M) Allergies Allergy/AdvReac Type Severity Reaction Status Date / Time No Known Allergies Allergy Verified 04/20/22 21:35 General Stated Complaint: GenMedical EMILY: 2 Review of Systems All systems reviewed & are unremarkable except as noted in HPI and below PFSH All Active Problems (Updated 04/20/22 @ 22:35 by Wilfredo Cordon DO) UTI (urinary tract infection) (Acute) Bacteremia (Acute) UTI (urinary tract infection) (Acute) Sepsis (Acute) Ambulatory dysfunction (Acute) Chronic anemia (Chronic) Decubitus skin ulcer (Acute) Paula catheter in place (Acute) Recurrent breast cancer (Acute) Hx of mastectomy (Chronic) Spinal cord compression (Acute) Presence of inferior vena cava filter (Acute) Prediabetes (Acute) Severe obesity (Acute) Fatty liver (Acute) Medical History GERD (gastroesophageal reflux disease) Hyperlipidemia Hypotension Indwelling Paula catheter present Metastatic breast cancer Neurogenic bladder Non-insulin dependent diabetes mellitus Normocytic normochromic anemia Paraplegia Surgical History H/O bilateral mastectomy Hx of appendectomy S/P cervical spinal fusion S/P IVC filter Family History Brother Hypertension Mother Breast cancer Other Heart disease Social History Smoking/Tobacco Use Status: Never Smoking risk assessment performed?: Yes Alcohol Intake: never Drug use: Never Substance use type: does not use Current gender identity: female Do you feel safe at home: Yes Do you feel safe in your relationship?: Yes Additional Social history: unable to assess privately Exam Narrative Exam Narrative: 1.Const: Well-nourished, Well-developed, appearing stated age 2.Eyes: PERRL, no conjunctival injection, and symmetrical lids. 3.ENT: Atraumatic external nose and ears. Moist MM. Neck: Symmetric, trachea midline, No thyromegaly. 4.CVS: +S1/S2, No murmurs or gallops. Peripheral pulses 2+ and equal in all extremities. Brisk capillary refill in all extremities. 5.RESP: Unlabored respiratory effort. Clear to auscultation bilaterally. No wheezes rales or rhonchi 6.GI: Soft, Nontender/Nondistended, No hepatosplenomegaly. No guarding or rebound. Suprapubic catheter in place 7.MSK: Normocephalic/Atraumatic, Extremities w/o deformity or ttp No cyanosis or clubbing, 8.Skin: Warm, Dry. Patient's left buttock demonstrates an ulcer chronically that is about 3 cm wide by 3 or 4 cm deep. No significant surrounding cellulitis. 9.Neuro: Chronic near paralysis of the upper and lower extremities. 10.Psych: (AAO) x3. Appropriate mood and affect Course Vital Signs Vital signs: Vital Signs Temperature 39.6 C H 04/20/22 21:24 Pulse 123 H 04/20/22 21:24 Respiratory Rate 19 04/20/22 21:24 Blood Pressure 116/77 04/20/22 21:24 Pulse Oximetry 93 04/20/22 21:24 Temperature 39.6 C H 04/20/22 21:24 Temperature Source Temporal Artery Scan 04/20/22 21:24 Pulse 123 H 04/20/22 21:24 Respiratory Rate 19 04/20/22 21:24 Respiratory Effort 04/20/22 21:24 Blood Pressure 116/77 04/20/22 21:24 Blood Pressure Position Supine 04/20/22 21:24 Pulse Oximetry 93 04/20/22 21:24 Pain Level 0 04/20/22 21:24
[2022-04-20] MEDS: PIPERACILLIN/TAZO 3.375 GM in Normal Saline 50 ML IVPB (21:55)
[2022-04-20 22:05] LABS: Abs Immature Grans 0.03 10^3/uL (0.0-0.06); Absolute Basophil Count 0.01 10^3/uL (0.0-0.2); Absolute Eosinophil Count 0.12 10^3/uL (0.0-0.7); Absolute Lymphocyte Count 1.62 10^3/uL (1.2-3.4); Absolute Monocyte Count 0.49 10^3/uL (0.1-0.8); Absolute Neutrophil Count 4.16 10^3/uL (1.2-6.7); Basophils % 0.2; Eosinophils % 1.9; HCT 26.5 % (36.0-46.0); HGB 8.2 g/dL (11.2-15.7); Immature Grans % 0.5; Lymphocytes % 25.2; MCH 23.9 pg (27.0-33.0); MCHC 30.9 % (32.0-36.0); MCV 77 fL (80-95); MPV 8.5 fL (8.0-11.0); Monocytes % 7.6; Neutrophils % 64.6; Platelet Count 395 10^3/uL (130-400); RBC 3.43 10^6/uL (3.93-5.22); RDW 15.9 % (11.7-14.6); WBC 6.43 10^3/uL (4.4-10.8)
[2022-04-20 22:09] LABS: Lactate 2.1 mmol/L (0.6-1.4)
[2022-04-20] MEDS: Normal Saline 1,000 ML 150 ML IV (22:15)
[2022-04-20 22:18] LABS: COVID-19 PCR Negative (Negative); Influenza A PCR Negative (Negative); Influenza B PCR Negative (Negative); RSV PCR Negative (Negative)
[2022-04-20 22:20] LABS: Source Nasopharynx
[2022-04-20 22:21] LABS: ALT 13 U/L (14-59); AST 25 U/L (15-37); Albumin 2.7 g/dL (3.4-5.0); Alkaline Phosphatase 120 U/L (46-116); Anion Gap 8.4 mmol/L (3-11); BUN 10 mg/dL (7-18); Bilirubin, Total 0.2 mg/dL (0.2-1.0); CO2 24.6 mmol/L (21.0-32.0); CREATININE 0.7 mg/dL (0.55-1.02); Calcium 9.1 mg/dL (8.5-10.1); Chloride 97 mmol/L (98-107); Estimated GFR 97.72 (mL/min/1.73m2); Glucose 147 mg/dL (74-106); Sodium 130 mmol/L (136-145); Total Protein 8.3 g/dL (6.4-8.2)
--- NOTE | 2022-04-20 22:30 | DI.VRAD_ITS ---
PROCEDURE INFORMATION: Exam: XR Chest Exam date and time: 04/20/2022 9:38 PM Age: 62 years old Clinical indication: Fever; Additional info: Fever, eval pneumonia TECHNIQUE: Imaging protocol: Radiologic exam of the chest. Views: 1 view. COMPARISON: CR XR PORTABLE CHEST AP 12/15/2021 11:44 AM FINDINGS: Lungs: Unremarkable. No consolidation. Pleural spaces: Unremarkable. No pleural effusion. No pneumothorax. Heart/Mediastinum: Unremarkable. No cardiomegaly. Bones/joints: Degenerative skeletal changes. Previous cervical spine fusion. Old posterior right rib fracture. Soft tissues: Surgical clips across the chest wall bilaterally and within the axilla. Consider possibility of previous mastectomy procedure. IMPRESSION: 1. No acute findings. 2. No lung infiltrates or edema. 3. No pleural effusion. 4. Normal heart size. 5. Degenerative thoracic spine. Previous lower cervical spine fusion. Dictated and Authenticated by: Louis Velasquez MD. Ordering:DARREN Villalobos MD
[2022-04-20 22:35] LABS: Bilirubin Negative (Negative); Blood Negative (Negative); Clarity Clear (Clear); Glucose Negative (Negative); Ketones Negative (Negative); Leukocyte Esterase Trace (Negative); Nitrite Negative (Negative); Specific Gravity 1.015 (1.005-1.025); pH 8.5 (5-8)
[2022-04-20 22:37] LABS: Bacteria Few HPF (Negative); C & S Indicated? Yes; Casts Negative LPF (Negative); Crystals Negative HPF (Negative); Epithelial Cells Rare HPF (Negative); Mucus Negative (Negative); RBC 0-2 HPF (0-2)
[2022-04-20 22:38] LABS: Procalcitonin 0.3 ng/mL
[2022-04-20 22:40] VITALS: BP 120/64; PULSE 123; RESP 19; TEMP 39.6; O2SAT 94
[2022-04-20 22:44] VITALS: BP 121/74; PULSE 113; RESP 16; TEMP 40.3; O2SAT 97
[2022-04-20 22:45] VITALS: BP 121/74; PULSE 113; RESP 16; TEMP 40.3; O2SAT 97
--- NOTE | 2022-04-20 22:47 | W.PM.HP.N ---
Date of service: 04/20/22 Time of Service: 23:24 Assessment and Plan Assessment and plan (1) Sepsis: Status: Acute Assessment and plan: Wanda still does not have an elevated WBC or neutrophilia and her procalcitonin low risk, and her Lactate is only mildly elevated. However her fever is now above 40 deg C and she is getting chills, with positive blood cultures I thinks she is getting septic. I agree with covering gram positives with Vancomycin and the urine gram negatives with pip/tazo based on the culture from 04/17/22. I do think that the bacteria making her sick is the gram positive in her blood, and I think the likely source is the deep ulcer over her ischium that extends down to her bone. Osteomyelitis must be considered. I will get CRP to establish baseline to monitor treatment. (2) UTI (urinary tract infection): Status: Acute Assessment and plan: I'm not sure the bacteria in the urine is pathologic, as with the catheter the Klebsiella may be colonizing. However I agree with continuing pip/tazo to cover until we have the infection under control. (3) History of DVT of lower extremity: Status: Acute Assessment and plan: On DOAC Pradaxa chronically, continue. (4) Decubitus skin ulcer: Status: Acute Assessment and plan: Will request wound consult. Vacuum dressing was the plan and so it would be nice to get this started while inpatient if possible. (5) Prediabetes: Status: Acute Assessment and plan: Has been in prediabetic range without meds, repeat A1c to confirm. (6) Recurrent breast cancer: Status: Acute Assessment and plan: continue letrozole (7) Chronic anemia: Status: Chronic Assessment and plan: Iron studies in December c/w anemia of chronic disease. Follow. (8) Suprapubic catheter: Status: Acute Assessment and plan: This was just changed and appears to be functioning. (9) Discharge planning issues: Status: Acute Assessment and plan: She may need prolonged antibiotics, will await cultures. SHe has see palliative care if their services are needed. History of Present Illness History of Present Illness Chief Complaint: fevers Narrative: 62 yo F with paraplegia secondary to metastatic breast cancer to spine, suprapubic catheter, h/o DVT on Pradaxa, and chronic deep left ischial decubitus ulcer who was called this evening with positive blood culture drawn during an ED visit yesterday 04/19/22. She first started feeling sick on Sunday 04/16 when she felt a little feverish. Sunday04/17/22 her noted some intermittent confusion. Home health came and took a urine culture and changed her catheter. She continued to have intermittent symptoms and her culture returned klebsiella. She was seen in the emergency room and given a dose of IV piperacillin/tazobactam. Admission was considered but at that time she had no elevation of WBC and she appeared non-toxic so the decision was made to treat with fosfomycin orally and discharge home. This evening the blood culture drawn 04/19/22 returned with gram positives and she was called to return. She feels cold/chilled currently, doesn't feel hot. Her mouth is dry. She denies pain. SHe has been eating. She is getting wound care for the chronic wound on left hip. Wound vac has been approved but not started. It drains a lot. Review of Systems Constitutional Constitutional: Denies headache(s) and Reports lethargy Eyes Eyes: Denies change in vision and Denies irritation ENT Ears, Nose, Mouth, and Throat: Denies dizziness, Denies headache(s), Denies nasal congestion, Denies nasal discharge and Denies sore throat Cardiovascular Cardiovascular: Denies chest pain, Denies palpitations and Denies orthopnea Respiratory Respiratory: Denies cough, Denies excessive phlegm production and Denies wheezing Gastrointestinal Gastrointestinal: Denies abdominal pain, Denies melena, Denies hematochezia, Denies constipation, Denies heartburn, Denies diarrhea and Denies vomiting Genitourinary Genitourinary: Denies hematuria, Denies dysuria and Denies urinary incontinence Integumentary/Breasts Skin/Breast: Denies rash, Reports skin pain (has some pain in masectomy scars) and Reports skin ulcer Neurologic Neurologic: Reports confusion, Denies dizziness, Denies headache(s), Reports sensory deficit (LE, chronic) and Denies tremor(s) Psychiatric Psychiatric: Reports confusion, Denies mood swings and Denies panic attacks Endocrine Endocrine: Denies palpitations Hematologic/Lymphatic Hematologic/Lymphatic: Denies easy bleeding Allergic/Immunologic Allergic/Immunologic: Denies wheezing PFSH All Active Problems (Updated 04/20/22 @ 23:45 by Brad Mistry) Discharge planning issues (Acute) Suprapubic catheter (Acute) History of DVT of lower extremity (Acute) UTI (urinary tract infection) (Acute) Bacteremia (Acute) UTI (urinary tract infection) (Acute) Sepsis (Acute) Ambulatory dysfunction (Acute) Chronic anemia (Chronic) Decubitus skin ulcer (Acute) Recurrent breast cancer (Acute) Hx of mastectomy (Chronic) Spinal cord compression (Acute) Presence of inferior vena cava filter (Acute) Prediabetes (Acute) Fatty liver (Acute) Medical History (Updated 04/20/22 @ 23:45 by Brad Mistry) GERD (gastroesophageal reflux disease) Hyperlipidemia Hypotension Metastatic breast cancer Neurogenic bladder Non-insulin dependent diabetes mellitus Normocytic normochromic anemia Paraplegia Surgical History H/O bilateral mastectomy Hx of appendectomy S/P cervical spinal fusion S/P IVC filter Family History Brother Hypertension Mother Breast cancer Other Heart disease Social History (Updated 04/21/22 @ 00:04 by Brad Mistry) Smoking/Tobacco Use Status: Never Smoking risk assessment performed?: Yes Alcohol Intake: never Drug use: Never Substance use type: does not use Current gender identity: female Do you feel safe at home: Yes Do you feel safe in your relationship?: Yes Additional Social history: unable to assess privately. Lives with Hao in [place]. 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 Meds Allergies and Home Medications Allergies Allergy/AdvReac Type Severity Reaction Status Date / Time No Known Allergies Allergy Verified 04/20/22 21:35 Home Medications Medication Instructions Recorded Confirmed Type baclofen 10 mg tablet 0.5 tab PO Q8H PRN 12/14/21 04/20/22 History gabapentin 300 mg capsule 2 cap PO Q8H 12/14/21 04/20/22 History letrozole 2.5 mg tablet 1 tab PO DAILY 12/14/21 04/20/22 History midodrine 5 mg tablet 5 mg PO TID #10 tabs 12/14/21 04/20/22 Rx pantoprazole 40 mg tablet,delayed 40 mg PO DAILY 12/14/21 04/20/22 History release dabigatran etexilate 150 mg 150 mg PO BID 12/16/21 04/20/22 History capsule (Pradaxa) fluticasone propionate 50 2 spray intranasal DAILY 12/21/21 04/20/22 History mcg/actuation nasal spray,suspension (Flonase Allergy Relief) collagenase clostridium histo. 250 7,500 unit topical DAILY #0 grams 12/30/21 04/20/22 Rx unit/gram topical ointment (Santyl) cyanocobalamin (vitamin B-12) 500 1,000 mcg PO DAILY #0 tabs 12/30/21 04/20/22 Rx mcg tablet (Vitamin B-12) magnesium oxide 400 mg (241.3 mg 400 mg PO HS #0 tabs 12/30/21 04/20/22 Rx magnesium) tablet multivitamin (Multiple Vitamins 1 tab PO DAILY #0 tabs 12/30/21 04/20/22 Rx tablet) potassium chloride 20 mEq 20 meq PO BID #30 tabs 12/30/21 04/20/22 Rx tablet,extended release(part/cryst) (Klor-Con M) dabigatran etexilate 150 mg capsule mg PO 04/19/22 History Exam Narrative Exam Narrative: GEN: Alert and oriented x 3, but ill appearing, a bit clammy. Remarkably pleasant and cooperative. She gives linear history but her speech is slow, occasionally she forgets things and her fills in. HEENT: Head atraumatic. Conjunctiva clear, no icterus. PEERL, EOMI. no rhinorrhea. MM dry, OP benign. Neck is supple with no masses or lymphadenopathy, trachea midline LUNGS: CTAB with normal effort CV: RRR with no murmurs, gallops, or rubs. ABD: +BS, soft, NT/ND, suprapubic site looks benign EXT: no cyanosis, clubbing, or edema MSK: No joint redness or swelling NEURO: CN 2-12 grossly intact. Normal movement of upper extremities. Normal speech. SKIN: No rashes, skin hot. Deep wound >5cm through subcutaneous tissue to near bone over left ischium. Draining brownish milky fluid. PSYCH: normal mood and affect Results Imaging Chest x-ray: report reviewed (IMPRESSION: 1. No acute findings. 2. No lung infiltrates or edema. 3. No pleural effusion. 4. Normal heart size. 5. Degenerative thoracic spine. Previous lower cervical spine fusion.) Labs Result diagrams: 04/20/22 21:59 04/20/22 21:59 Labs: Laboratory Results - last 24 hr 04/20/22 04/20/22 04/20/22 21:38 21:59 21:59 WBC 6.43 RBC 3.43 L Hgb 8.2 L Hct 26.5 L MCV 77 L MCH 23.9 L MCHC 30.9 L RDW 15.9 H Plt Count 395 MPV 8.5 Immature Gran % 0.5 Neutrophils % 64.6 Lymphocytes % 25.2 Monocytes % 7.6 Eosinophils % 1.9 Basophils % 0.2 Nucleated RBC % 0.0 Absolute Neutrophils 4.16 Absolute Lymphocytes 1.62 Absolute Monocytes 0.49 Absolute Eosinophils 0.12 Absolute Basophils 0.01 VBG Lactate Sodium 130 L Potassium 4.0 Chloride 97 L Carbon Dioxide 24.6 Anion Gap 8.4 BUN 10 Creatinine 0.7 Est GFR (CKD-EPI 2020) 97.72 Glucose 147 H Calcium 9.1 Total Bilirubin 0.2 AST 25 ALT 13 L Alkaline Phosphatase 120 H Total Protein 8.3 H Albumin 2.7 L Procalcitonin Urine Color Urine Clarity Urine pH Ur Specific [place] Urine Protein Urine Ketones Urine Blood Urine Nitrite Urine Bilirubin Urine Urobilinogen Ur Leukocyte Esterase Urine RBC Urine WBC Ur Epithelial Cells Urine Crystals Urine Bacteria Urine Casts Urine Mucus Ur Culture Indicated? Urine Glucose COVID-19 Source Nasopharynx SARS-CoV-2 (PCR) Negative Influenza Type A (PCR) Negative Influenza Type B (PCR) Negative RSV (PCR) Negative 04/20/22 04/20/22 04/20/22 21:59 21:59 22:25 WBC RBC Hgb Hct MCV MCH MCHC RDW Plt Count MPV Immature Gran % Neutrophils % Lymphocytes % Monocytes % Eosinophils % Basophils % Nucleated RBC % Absolute Neutrophils Absolute Lymphocytes Absolute Monocytes Absolute Eosinophils Absolute Basophils VBG Lactate 2.1 H Sodium Potassium Chloride Carbon Dioxide Anion Gap BUN Creatinine Est GFR (CKD-EPI 2020) Glucose Calcium Total Bilirubin AST ALT Alkaline Phosphatase Total Protein Albumin Procalcitonin 0.3 Urine Color Yellow Urine Clarity Clear Urine pH 8.5 H Ur Specific [place] 1.015 Urine Protein 30 H Urine Ketones Negative Urine Blood Negative Urine Nitrite Negative Urine Bilirubin Negative Urine Urobilinogen 4.0 H Ur Leukocyte Esterase Trace H Urine RBC 0-2 Urine WBC 5-10 Ur Epithelial Cells Rare Urine Crystals Negative Urine Bacteria Few Urine Casts Negative Urine Mucus Negative Ur Culture Indicated? Yes Urine Glucose Negative COVID-19 Source SARS-CoV-2 (PCR) Influenza Type A (PCR) Influenza Type B (PCR) RSV (PCR) Last Vital Signs Temp 39.6 C H 04/20/22 21:24 Pulse 123 H 04/20/22 21:24 Resp 19 04/20/22 21:24 BP 116/77 04/20/22 21:24 Pulse Ox 93 04/20/22 21:24 Time Spent Time spent with Patient: 55-74 minutes Time was spent: preparing to see the patient(eg.review tests), obtaining and/or reviewing separately otained hiistory, ordering medications,tests, procedures and indepentently interpreting results
[2022-04-20 22:50] VITALS: RESP 19
[2022-04-20 23:20] VITALS: TEMP 40.3
[2022-04-20] MEDS: ACETAMINOPHEN 1,000 MG/100 ML BTL 400 MG IVPB (23:20)
[2022-04-21] VITALS (13 sets, daily range): BP systolic 88–144; BP diastolic 60–82; PULSE 82–100; RESP 16–19; TEMP 35.4–38.6; O2SAT 92–98
[2022-04-21] MEDS: Gabapentin 300 MG CAP 600 MG PO ×4 (00:10→21:36)
[2022-04-21] MEDS: VANCOMYCIN 1,500 MG in Normal Saline 500 ML 333.3333 MG IVPB (00:10)
[2022-04-21] MEDS: Normal Saline Flush 10 ML SYR IVP (00:15)
[2022-04-21] MEDS: Normal Saline 1,000 ML 1000 ML IV (00:47)
[2022-04-21] MEDS: PIPERACILLIN/TAZO 3.375 GM in Normal Saline 50 ML IVPB ×3 (04:39→17:25)
[2022-04-21] MEDS: Normal Saline 1,000 ML 150 ML IV (06:04)
[2022-04-21 06:50] LABS: Abs Immature Grans 0.06 10^3/uL (0.0-0.06); Absolute Basophil Count 0.01 10^3/uL (0.0-0.2); Absolute Eosinophil Count 0.09 10^3/uL (0.0-0.7); Absolute Monocyte Count 0.35 10^3/uL (0.1-0.8); Absolute Neutrophil Count 3.69 10^3/uL (1.2-6.7); Basophils % 0.2; Eosinophils % 1.6; HCT 25.2 % (36.0-46.0); HGB 7.6 g/dL (11.2-15.7); Lymphocytes % 27.6; MCH 23.8 pg (27.0-33.0); MCHC 30.2 % (32.0-36.0); MCV 79 fL (80-95); MPV 9.3 fL (8.0-11.0); Neutrophils % 63.6; Platelet Count 326 10^3/uL (130-400); RDW-SD 45.7 fL
[2022-04-21 07:07] LABS: Anion Gap 7.7 mmol/L (3-11); BUN 7 mg/dL (7-18); C-Reactive Protein 10.29 mg/dL (0.0-0.3); CO2 24.3 mmol/L (21.0-32.0); CREATININE 0.5 mg/dL (0.55-1.02); Calcium 8.7 mg/dL (8.5-10.1); Chloride 106 mmol/L (98-107); Estimated GFR 105.98 (mL/min/1.73m2); Glucose 137 mg/dL (74-106); Potassium 3.7 mmol/L (3.5-5.1); Sodium 138 mmol/L (136-145)
[2022-04-21] MEDS: Lactated Ringers 500 ML IV (07:51)
[2022-04-21] MEDS: Lactated Ringers 1,000 ML 150 ML IV ×2 (08:01→15:35)
[2022-04-21] MEDS: Potassium Chloride 20 MEQ TABCR PO ×2 (08:03→19:49)
[2022-04-21] MEDS: Pantoprazole 40 MG TABCR PO (08:03)
[2022-04-21] MEDS: Cyanocobalamin 500 MCG TAB 1000 MCG PO (08:03)
[2022-04-21] MEDS: Letrozole 2.5 MG TAB PO (08:03)
[2022-04-21] MEDS: Multivitamin TAB 1 TAB PO (08:04)
[2022-04-21] MEDS: Midodrine 2.5 MG TAB 5 MG PO ×3 (09:27→17:45)
[2022-04-21] MEDS: Normal Saline 500 ML 100 ML IV (10:23)
--- NOTE | 2022-04-21 10:50 | PDOC.CMIN ---
- If Service Date Differs Date of service: 04/21/22 Time of Service: 10:50 Care Management Initial Assess REASON FOR HOSPITALIZATION:: Sepsis PAST MEDICAL HISTORY/PAST SURGICAL HISTORY:: All Active Problems (Updated 04/20/22 @ 23:45 by Brad Mistry). Discharge planning issues (Acute). Suprapubic catheter (Acute). History of DVT of lower extremity (Acute). UTI (urinary tract infection) (Acute). Bacteremia (Acute). UTI (urinary tract infection) (Acute). Sepsis (Acute). Ambulatory dysfunction (Acute). Chronic anemia (Chronic). Decubitus skin ulcer (Acute). Recurrent breast cancer (Acute). Hx of mastectomy (Chronic). Spinal cord compression (Acute). Presence of inferior vena cava filter (Acute). Prediabetes (Acute). Fatty liver (Acute). Medical History (Updated 04/20/22 @ 23:45 by Brad Mistry). GERD (gastroesophageal reflux disease). Hyperlipidemia. Hypotension. Metastatic breast cancer. Neurogenic bladder. Non-insulin dependent diabetes mellitus. Normocytic normochromic anemia. Paraplegia. Surgical History . H/O bilateral mastectomy. Hx of appendectomy. S/P cervical spinal fusion. S/P IVC filter PREVIOUS FUNCTIONAL STATUS/SOCIAL/FAMILY SUPPORTS:: Wanda moved to the [facility] about 6 months ago from [place] with her Raulito. They have 3 daughters who still live in [place]. Wanda shared that their [place] [facility] plan was always to move to [place] as Raulito has family here. 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 Raulito worked for the [employer]. Wanda was diagnosed with stage IV metastatic breast cancer last May which had spread to her spine. She had surgery but was left without feeling from the chest down. She is able to use her upper extremities at this time which is an improvement. Wanda has a strong sari and network of alevism support and reports that her is her champion. He helps with all of her care needs and brings katherine and enrichment to her life. CURRENT FUNCTIONAL STATUS:: Wanda was sitting up in bed finishing her lunch when CM met with her. She was very pleasant and engaged easily with CM. Wanda shared the details of the past year of her life. A year ago she was newly retired and living with her at a friends home in [place], preparing to retire to [place]. In May she fell and learned that she has stage IV breast cancer with metastasis to the spine and was told she had 2 months to live. She and her decided to follow through with their plan to move to [place] and did so in October. Raulito built an attached garage so that Wanda could get into her wheelchair van without exposure to the elements. She is not receiving any treatment for her cancer, but states that she feels really good. She shared that in the beginning she could barely move her upper extremities but that now she can use her arms and hands quite well. She has recently resumed painting, a favorite pastime of hers. She has transitiobned to [employer] but stated she is enjoying it very much. Wanda also spoke about all of the wonderful people who have helped her on this journey. Many donated money, sometimes thousands of dollars, to help defray the cost of the very expensive equipment needed to care for her such as the wheelchair van. She expressed great gratitude and humility during the conversation and became teary at times. ADVANCE DIRECTIVES:: On file. Raulito CARLO. Has patient been provided with info about the portal/API?: Yes Did the patient sign up for the portal?: No CODE STATUS:: DNR/DNI INSURANCE COVERAGE / FINANCIAL ISSUES:: [facility] CURRENT HOME/COMMUNITY SERVICES/EQUIPMENT:: Wanda gets home health nursing and OT. She has a wheelchair, wheelchair van and all of the necessary equipment to care for her. PRIMARY CARE PHYSICIAN:: Eriberto Zimmerman POTENTIAL DISCHARGE NEEDS:: follow up with PCP and plan of care PATIENT/FAMILY EDUCATION NEEDS:: Review discharge instructions, limitations, medications, follow up plan, Ask Me Three. TRANSPORTATION:: via wheelchair van (private) with PLAN:: Anticipate Wanda will discharge home with a resumption of services. She will follow up with her PCP and plan of care and transport with her . CM will continue to offer support to Wanda and assess for discharge needs.
[2022-04-21] MEDS: VANCOMYCIN/WATER (PEG) 1 GM/200 ML BAG IV (11:44)
[2022-04-21] MEDS: diphenhydrAMINE 25 MG CAP PO (14:14)
[2022-04-21] MEDS: Famotidine 20 MG TAB PO (14:15)
--- NOTE | 2022-04-21 17:30 | DI.MRI_ITS ---
Exam(s) MR PELVIS WO/W EXAM: MR PELVIS WO/W CLINICAL HISTORY: R buttock Stage 4 wound TECHNIQUE: Multiplanar multisequence MRI of Pelvis was performed. CONTRAST MATERIAL: IV Contrast: 13 mL of Dotarem contrast administered. COMPARISON: No exams were available for comparison FINDINGS: Bones: There is no fracture or contusion pattern. There are numerous expansile lytic enhancing lesio ns throughout the visualized bones. These include the pelvis, proximal femur, lower lumbar spine and sacral bones. The findings are consistent with a neoplastic process. This may include metastatic d isease, myeloma or lymphoma. There is destruction of the cortex in the left ischial tuberosity. The re is an adjacent briefly enhancing fluid collection measuring 3.1 x 3.2 x 2.2 cm consistent with an abscess. This abscess communicates via a fistulous tract to a deep decubitus ulcer in the left butto ck there is associated skin thickening and subcutaneous edema which shows enhancement. Musculotendinous structures: There is edema and enhancement involving the left abductor brevis muscl e which and is adjacent to and appears to communicate with the abscess and left buttock ulcer. This likely reflects infectious myositis. Edema and enhancement in the proximal attachment of the adducto r longus muscle. Soft tissues: As described above there is a deep soft tissue ulcer in the left buttock with a fistulo us tract extending into the left ischial tuberosity where there is an associated abscess. There is s kin thickening and surrounding edema adjacent to the deep ulcer. In the right buttock, there is an a bakari of enhancement and soft tissue edema extending to the right ischial tuberosity. There is enhance ment of the right ischial tuberosity. No focal fluid collection is seen at this area at this time. IMPRESSION: 1. Numerous expansile and lytic lesions in the visualized bones consistent with malignancy. This may represent metastatic disease, myeloma or possibly lymphoma. Please correlate with the patient's cli nical history. 2. Deep decubitus ulcer within the left buttocks with a fistulous tract extending to the left ischial tuberosity where there is a 3.1 x 3.2 x 2.2 cm abscess. Abnormal signal enhancement of the ischial tuberosity is consistent with acute osteomyelitis. 3. Findings concerning for developing decubitus ulcer in the right buttocks. Enhancement of the righ t ischial tuberosity raises a question of osteomyelitis in this region. DATA REPOSITORY:
--- NOTE | 2022-04-21 19:04 | DI.VRAD_ITS ---
Addendum created by Meenu Woodard MD on 04/21/2022 7:10:32 PM EST: THIS REPORT CONTAINS FINDINGS THAT MAY BE CRITICAL TO PATIENT CARE. The findings were verbally communicated via telephone conference with Marimar Garvey at 7:06 PM EST on 04/21/2022. The findings were acknowledged and understood. Initial report created on 04/21/2022 7:04:12 PM EST: PROCEDURE INFORMATION: Exam: MR Pelvis Without and With Contrast, Musculoskeletal Exam date and time: 04/21/2022 4:27 PM Age: 62 years old Clinical indication: Other: Wound stage 4 left buttock TECHNIQUE: Imaging protocol: Magnetic resonance imaging of the pelvis without and with contrast. Exam focused on the musculoskeletal system. Contrast material: DOTAREM; Contrast volume: 13 ml; Contrast route: INTRAVENOUS (IV); COMPARISON: US RENAL 12/15/2021 4:15 PM FINDINGS: Tubes, catheters and devices: A suprapubic catheter is seen within the urinary bladder. The urinary bladder is nondistended. Reproductive: The uterus is normal appearance. Nabothian cysts are seen within the cervix. Bones/joints: Numerous expansile, lytic, enhancing lesions are seen throughout the imaged bones. The largest are seen centered within the right acetabulum, extending into the right ischial tuberosity and inferior pubic ramus. A large, expansile lytic lesion is also seen within the left superior pubic ramus extending into the anterior acetabulum. Numerous additional lesions fill the remaining imaged bones, including the pelvic bones, as well as the proximal bilateral femora. This is consistent with metastatic disease, myeloma or lymphoma. Cortical destruction is seen within the ischial tuberosity adjacent to an abscess, most consistent with superimposed osteomyelitis. Muscles: Extensive edema enhancement is seen within the left adductor brevis muscle. This communicates with the abscess and likely represents infectious myositis as well as high-grade tearing. Edema and enhancement is also present within the proximal attachments of the adductor longus muscle, likely secondary to the adjacent decubitus ulcer and abscess. Soft tissues: A deep soft tissue ulcer is seen within the left buttock, with a fistulous tract extending to the left ischial tuberosity, where a complex peripherally enhancing fluid collection is present. This is most consistent with an abscess, measuring 3.1 x 3.2 x 2.2 cm. Skin thickening and subcutaneous edema surrounds the deep decubitus ulcer. There somewhat linear soft tissue enhancement is seen within the right buttock, which extends to the right ischial tuberosity, which could represent a developing decubitus ulcer as well. IMPRESSION: 1. Numerous lytic and expansile lesions throughout the pelvic bones, hips and imaged proximal bilateral femora, concordant with malignancy. This represents either metastatic disease, myeloma or could represent lymphoma. 2. Deep decubitus ulcer within the left buttock with a fistulous tract extending to the left ischial tuberosity where a 3.1 x 3.2 x 2.2 cm abscess and osteomyelitis is present. 3. Extensive edema throughout the left adductor brevis muscle, which communicates with the abscess, and likely represents infectious myositis superimposed on muscular tearing. A similar but less extensive appearance is seen within the proximal left adductor longus muscle. 4. Possible developing decubitus ulcer within the right buttock, extending to the right ischial tuberosity, where a large metastatic lesion is present. Dictated and Authenticated by: Meenu Woodard MD. Ordering:ANTHONY Minaya MD
--- NOTE | 2022-04-21 19:59 | WOUNDCONS_ITS ---
- If Service Date Differs Date of service: 04/21/22 Time of Service: 19:00 Wound Initial Evaluation Narrative: Ms Back is a 61 year old female w/ PMHx of metastatic breast cancer metastatic to cervical spine resulting in paraplegia and neurogenic bladder, s/p indwelling mancera, as well as h/o IVC filter (prophylactic), T2DM (noninsulin dependent, diet controlled), hyperlipidemia. She is currently here for bacteremia and urinary infection with klebsiella and ESBL. Patient is receiving IV antibiotics. She presented in December, with sacral and left ischial tuberosity wounds. The sacral area is healed. However, the left ischial tuberosity wound has worsened despite home health wound care. Per home health notes, they have been debriding the area prn and using santyl and a calcium alginate AG dressing. They have been considering using a wound vac to the area. Upon initial exam, I noted exposed bone in center of the wound, foul odor, gre enish goff drainage. I did request an MRI of the pelvis to determine if osteomyelitis was present. The initial wound in December had begun after the family relocated from [place]. Pt and her traveled here from [place] via car to relocate. They own a 62 acre property with a home in the [place]. She enjoys spending her days sitting in her wheelchair on the front porch watching the bi rds and feeling the cool air. She states that her wheelchair has a timed tilting feature that is set to tilt her further back every 90 minutes. Advised that it is recommended that this frequency be changed to every 30 minutes to have a change in the tilt to change her pressure points in her chair. Pt verbalized understanding to this and was able to repeat instructions. She states that her wheelchair is in good condition, new since October 2021. She does have a RoHo cushion in her chair as well. Body Four View: 1 - left ischial tuberosity - Wound left ischial tuberosity Wound Type: Pressure Ulcer Pressure Ulcer Stage: IV Wound General Appearance: Draining, Bleeding, Necrotic, Unapproximated, Muscle Visible, Bone Visible, Other Wound Bed Greatest Portion: Red (Granulation) Wound Bed Lesser Portion: Black (Eschar) Wound Surrounding Tissue Appearance: [place], Undermined (Undermining from 9 o'clock to 12 0'clock for up to 3.5cm.) Percent of Wound Bed Granulated/Red: 60 (bone visible about 20%) Percent of Wound Bed Eschar/Black: 20 (hard mass like) Wound Length: 1.97 in (5.0 cm) Wound Width: 1.38 in (3.5cm) Wound Depth: 1.81 in (4.6cm) Wound Drainage Amount: Moderate Wound Drainage Odor: Foul Odor Wound Drainage Description: Brown, Green Wound Topical Solution/Irrigant: Other (Anasept spray) Wound Debridement Method: Conservative Sharp, Other Wound Debridement Result: Necrotic Remains Wound Debridement Amount of Tissue Removed: Moderate Additional Other Comments: currette - Circulation, Sensation, Motion Skin Color: Pale - Pain Pain Level: 0 (patient has no sensation due to paraplegia) Since bone is present and mri results were not available at time of consult, it was decided that due to the signs of infection, foul colored drainage, the santyl was discontinued. Wound debrided but a dark mass like area was noted. Unable to debride the area with the currette. Edges of the wound were debrided to form a healthy vascular edge. The wound was wiped clean of loose slough. Treatment changed to silvadene to help decrease bacterial load in the wound. I did consult with Dr. Gravey post evaluation. The mri results were back. Pt, unfortunately, has widely spread metastatic disease within the pelvis. MD will discuss with the pt. Will follow pt and provide appropriate care as the pt jesus phan. - Photo Photo: - Treatment/Dressing Change Topicals/Ointments: Silvadene Dressing Types: Gauze, Mepilex w/Border Dressing Comment: 2- 4x4 gauze with silvadene cream used to pack the wound. Mepilex w border cover. - Nutrition Education Reviewed Nutrition Education: No Note: Pt advised that we will discuss wound care options further once results of the mri are back. - Recomendation Recomendation:: Left Ischial Tuberosity: 1. Clean wound with anasept spray. Allow to dwell for 2 minutes. 2. Wipe or pat dry with a clean gauze. 3. Apply Silvadene cream to two 4x4s. 4. Pack the wound with the 4x4's making sure to pack inside the undermined areas from 9 o'clock to 12 o'clock. 5. Cover with a mepilex dressing with border. 6. Change daily and prn. Turn pt at least every 2 hours. Use pillows under knees to keep heels off the bed. Use a pillow behind the patient's back and buttocks when on her side. Have pillows under her arms to keep arms elevated off the bed. Another pillow between her knees and ankles. Keep pt's head in low other than at meal times to help decrease pressure on her pelvis. Physcian/Nurse Practioner Notified: Yes Referrals: Dietary Treatment Time - Time Total Time Spent with Patient: 1 hour - Patient Will be Seen Weekly Treatment: daily - For: For:: 2 weeks
[2022-04-21] MEDS: Acetaminophen 325 MG TAB PO (20:37)
--- NOTE | 2022-04-21 21:13 | PGE_ITS ---
Date of Service Date of service: 04/21/22 Time of Service: 19:00 Assessment and Plan Assessment and plan (1) Sepsis: Status: Acute Assessment and plan: There are multiple sources: UTI, infected wound/abscess L buttock, osteomyelitis L buttock. Bacteremia may or may not be real given gram positive chuy. Await repeat blood culture results. Continue empiric vancomycin; will change zosyn to meropenem given ESBL Klebsiella in the urine. I have consulted general surgery for a debridement/I&D of the abscess in the L buttock. Trend CRP, procalcitonin. (2) Decubitus skin ulcer: Status: Acute Assessment and plan: With abscess and underlying osteomyelitis - as above. (3) UTI (urinary tract infection): Status: Acute Assessment and plan: Due to ESBL klebsiella, present on admission. Will switch to meropenem. (4) History of DVT of lower extremity: Status: Acute Assessment and plan: Continue prodaxa. (5) Breast cancer, stage 4: Status: Acute Assessment and plan: The metastatic burden in the pelvis puts her at an extremely high risk of a pathologic fracture, per radiology. She also has bony mets in bilateral femurs, though these are smaller. Radiology recommends obtaining MRI lumbar and thoracic spine. I think it is important to get palliative care involved in Wanda's case and I have also placed a hospice consult. I think, depending on the outcome of these discussions, we can decide as to whether we should proceed with further imaging. Continue letrozole. (6) Prediabetes: Status: Acute Assessment and plan: F/u A1C. (7) Chronic anemia: Status: Chronic Assessment and plan: Anemia of chronic diseae. Recheck H/H in am. (8) Suprapubic catheter: Status: Acute Assessment and plan: Just changed and functioning. Followed by urology. (9) Discharge planning issues: Status: Acute Assessment and plan: DNR/DNI. Both palliative care and hospice are consulted. May require prolonged antibiotics. Subjective Subjective Interval history since last seen: Ms Back is not in pain. She states she is cold. She is having rigors and requests another blanket. She denies dizziness, chest pain, shortness of breath, nausea. Case discussed with radiology: the patient has an abscess within her L buttock stage 4 wound as well as osteomyelitis and extensive pelvic and femoral bony metastatic disease. The patient was actually aware of this. She states that she does not think that she has been plugged with palliative care. She is open to talking about hospice. She is not afraid to because of her relationship with God, so if she is here or there with him, it's a win- win. Exam Narrative Exam Narrative: General: Very pleasant paraplegic female who is tearful but peaceful when talking about the idea of dying, A&Ox3, having rigors HEENT: EOMI, MMM Heart: RRR, no m/r/g Lungs: CTAB anteriorly Abdomen: soft, nondistended Extremities: trace edema BLEs Objective Last Vital Signs Temp 37.9 C H 04/21/22 20:37 Pulse 87 04/21/22 19:40 Resp 16 04/21/22 19:40 BP 144/82 H 04/21/22 19:40 Pulse Ox 98 04/21/22 19:40 Laboratory Results - last 24 hr 04/20/22 04/20/22 04/20/22 21:31 21:38 21:59 WBC RBC Hgb Hct MCV MCH MCHC RDW Plt Count MPV Immature Gran % Neutrophils % Lymphocytes % Monocytes % Eosinophils % Basophils % Nucleated RBC % Absolute Neutrophils Absolute Lymphocytes Absolute Monocytes Absolute Eosinophils Absolute Basophils VBG Lactate Sodium 130 L Potassium 4.0 Chloride 97 L Carbon Dioxide 24.6 Anion Gap 8.4 BUN 10 Creatinine 0.7 Est GFR (CKD-EPI 2020) 97.72 Glucose 147 H Hemoglobin A1c Calcium 9.1 Magnesium Total Bilirubin 0.2 AST 25 ALT 13 L Alkaline Phosphatase 120 H C-Reactive Protein Total Protein 8.3 H Albumin 2.7 L Procalcitonin Urine Color Urine Clarity Urine pH Ur Specific [place] Urine Protein Urine Ketones Urine Blood Urine Nitrite Urine Bilirubin Urine Urobilinogen Ur Leukocyte Esterase Urine RBC Urine WBC Ur Epithelial Cells Urine Crystals Urine Bacteria Urine Casts Urine Mucus Ur Culture Indicated? Urine Glucose COVID-19 Source Cancelled Nasopharynx SARS-CoV-2 (PCR) Cancelled Negative Influenza Type A (PCR) Negative Influenza Type B (PCR) Negative RSV (PCR) Negative 04/20/22 04/20/22 04/20/22 21:59 21:59 21:59 WBC 6.43 RBC 3.43 L Hgb 8.2 L Hct 26.5 L MCV 77 L MCH 23.9 L MCHC 30.9 L RDW 15.9 H Plt Count 395 MPV 8.5 Immature Gran % 0.5 Neutrophils % 64.6 Lymphocytes % 25.2 Monocytes % 7.6 Eosinophils % 1.9 Basophils % 0.2 Nucleated RBC % 0.0 Absolute Neutrophils 4.16 Absolute Lymphocytes 1.62 Absolute Monocytes 0.49 Absolute Eosinophils 0.12 Absolute Basophils 0.01 VBG Lactate 2.1 H Sodium Potassium Chloride Carbon Dioxide Anion Gap BUN Creatinine Est GFR (CKD-EPI 2020) Glucose Hemoglobin A1c Calcium Magnesium Total Bilirubin AST ALT Alkaline Phosphatase C-Reactive Protein Total Protein Albumin Procalcitonin 0.3 Urine Color Urine Clarity Urine pH Ur Specific [place] Urine Protein Urine Ketones Urine Blood Urine Nitrite Urine Bilirubin Urine Urobilinogen Ur Leukocyte Esterase Urine RBC Urine WBC Ur Epithelial Cells Urine Crystals Urine Bacteria Urine Casts Urine Mucus Ur Culture Indicated? Urine Glucose COVID-19 Source SARS-CoV-2 (PCR) Influenza Type A (PCR) Influenza Type B (PCR) RSV (PCR) 04/20/22 04/21/22 04/21/22 22:25 06:30 06:30 WBC RBC Hgb Hct MCV MCH MCHC RDW Plt Count MPV Immature Gran % Neutrophils % Lymphocytes % Monocytes % Eosinophils % Basophils % Nucleated RBC % Absolute Neutrophils Absolute Lymphocytes Absolute Monocytes Absolute Eosinophils Absolute Basophils VBG Lactate Sodium Potassium Chloride Carbon Dioxide Anion Gap BUN Creatinine Est GFR (CKD-EPI 2020) Glucose Hemoglobin A1c Cancelled Calcium Magnesium Cancelled Total Bilirubin AST ALT Alkaline Phosphatase C-Reactive Protein Cancelled Total Protein Albumin Procalcitonin Urine Color Yellow Urine Clarity Clear Urine pH 8.5 H Ur Specific [place] 1.015 Urine Protein 30 H Urine Ketones Negative Urine Blood Negative Urine Nitrite Negative Urine Bilirubin Negative Urine Urobilinogen 4.0 H Ur Leukocyte Esterase Trace H Urine RBC 0-2 Urine WBC 5-10 Ur Epithelial Cells Rare Urine Crystals Negative Urine Bacteria Few Urine Casts Negative Urine Mucus Negative Ur Culture Indicated? Yes Urine Glucose Negative COVID-19 Source SARS-CoV-2 (PCR) Influenza Type A (PCR) Influenza Type B (PCR) RSV (PCR) 04/21/22 04/21/22 06:30 06:30 WBC 5.80 RBC 3.20 L Hgb 7.6 L Hct 25.2 L MCV 79 L MCH 23.8 L MCHC 30.2 L RDW 16.0 H Plt Count 326 MPV 9.3 Immature Gran % 1.0 Neutrophils % 63.6 Lymphocytes % 27.6 Monocytes % 6.0 Eosinophils % 1.6 Basophils % 0.2 Nucleated RBC % 0.0 Absolute Neutrophils 3.69 Absolute Lymphocytes 1.60 Absolute Monocytes 0.35 Absolute Eosinophils 0.09 Absolute Basophils 0.01 VBG Lactate Sodium 138 Potassium 3.7 Chloride 106 Carbon Dioxide 24.3 Anion Gap 7.7 BUN 7 Creatinine 0.5 L Est GFR (CKD-EPI 2020) 105.98 Glucose 137 H Hemoglobin A1c Calcium 8.7 Magnesium 2.0 Total Bilirubin AST ALT Alkaline Phosphatase C-Reactive Protein 10.29 H Total Protein Albumin Procalcitonin Urine Color Urine Clarity Urine pH Ur Specific [place] Urine Protein Urine Ketones Urine Blood Urine Nitrite Urine Bilirubin Urine Urobilinogen Ur Leukocyte Esterase Urine RBC Urine WBC Ur Epithelial Cells Urine Crystals Urine Bacteria Urine Casts Urine Mucus Ur Culture Indicated? Urine Glucose COVID-19 Source SARS-CoV-2 (PCR) Influenza Type A (PCR) Influenza Type B (PCR) RSV (PCR) Objective Narrative Objective Narrative: MRI pelvis: 1. Numerous lytic and expansile lesions throughout the pelvic bones, hips and imaged proximal bilateral femora, concordant with malignancy. This represents either metastatic disease, myeloma or could represent lymphoma. 2. Deep decubitus ulcer within the left buttock with a fistulous tract extending to the left ischial tuberosity where a 3.1 x 3.2 x 2.2 cm abscess and osteomyelitis is present. 3. Extensive edema throughout the left adductor brevis muscle, which communicates with the abscess, and likely represents infectious myositis superimposed on muscular tearing. A similar but less extensive appearance is seen within the proximal left adductor longus muscle. 4. Possible developing decubitus ulcer within the right buttock, extending to the right ischial tuberosity, where a large metastatic lesion is present. Time Spent with Patient Time Spent with Patient: 35-49 minutes Time was spent: preparing to see the patient(eg.review tests), obtaining and/or reviewing separately otained hiistory, ordering medications,tests, procedures, referring, communicating with other health family day care worker, indepentently interpreting results, counseling the patient and care coordination
[2022-04-21] MEDS: Magnesium Oxide 400 MG TAB PO (21:36)
[2022-04-21] MEDS: MEROPENEM 1 GM in Normal Saline 100 ML IVPB (22:20)
[2022-04-21 23:18] LABS: Estimated Average Glucose 154 mg/dL
[2022-04-22] VITALS (9 sets, daily range): BP systolic 115–145; BP diastolic 76–89; PULSE 80–105; RESP 16–18; TEMP 36.6–38.6; O2SAT 94–96
[2022-04-22] MEDS: VANCOMYCIN/WATER (PEG) 1 GM/200 ML BAG IV ×2 (00:18→12:24)
[2022-04-22] MEDS: Acetaminophen 325 MG TAB PO ×2 (03:56→16:56)
[2022-04-22] MEDS: MEROPENEM 1 GM in Normal Saline 100 ML IVPB ×3 (05:36→22:34)
[2022-04-22 06:35] LABS: Abs Immature Grans 0.03 10^3/uL (0.0-0.06); Absolute Basophil Count 0.03 10^3/uL (0.0-0.2); Absolute Eosinophil Count 0.21 10^3/uL (0.0-0.7); Absolute Lymphocyte Count 1.38 10^3/uL (1.2-3.4); Absolute Monocyte Count 0.41 10^3/uL (0.1-0.8); Absolute Neutrophil Count 3.76 10^3/uL (1.2-6.7); Basophils % 0.5; Eosinophils % 3.6; HCT 23.8 % (36.0-46.0); HGB 7.2 g/dL (11.2-15.7); Immature Grans % 0.5; Lymphocytes % 23.7; MCH 23.6 pg (27.0-33.0); MCHC 30.3 % (32.0-36.0); MCV 78 fL (80-95); MPV 8.8 fL (8.0-11.0); Neutrophils % 64.7; RBC 3.05 10^6/uL (3.93-5.22); RDW 16.1 % (11.7-14.6); RDW-SD 46.1 fL; WBC 5.82 10^3/uL (4.4-10.8)
[2022-04-22 06:45] LABS: Anion Gap 10.4 mmol/L (3-11); BUN 6 mg/dL (7-18); C-Reactive Protein 11.23 mg/dL (0.0-0.3); CO2 22.6 mmol/L (21.0-32.0); CREATININE 0.6 mg/dL (0.55-1.02); Calcium 9.1 mg/dL (8.5-10.1); Chloride 103 mmol/L (98-107); Estimated GFR 101.42 (mL/min/1.73m2); Glucose 91 mg/dL (74-106); Magnesium 1.9 mg/dL (1.8-2.4); Sodium 136 mmol/L (136-145)
[2022-04-22 07:16] LABS: Platelet Count 325 10^3/uL (130-400)
[2022-04-22 07:17] LABS: Diff Comment Diff Reviewed; Hypochromasia 2+; Polychromasia Present
[2022-04-22] MEDS: Pantoprazole 40 MG TABCR PO (08:20)
[2022-04-22] MEDS: Gabapentin 300 MG CAP 600 MG PO ×3 (08:20→22:33)
[2022-04-22] MEDS: Potassium Chloride 20 MEQ TABCR PO ×2 (08:21→22:33)
[2022-04-22] MEDS: Letrozole 2.5 MG TAB PO (08:21)
[2022-04-22] MEDS: Midodrine 2.5 MG TAB 5 MG PO ×3 (08:21→16:56)
[2022-04-22] MEDS: Multivitamin TAB 1 TAB PO (08:21)
[2022-04-22] MEDS: Cyanocobalamin 500 MCG TAB 1000 MCG PO (08:21)
--- NOTE | 2022-04-22 15:37 | PGE_ITS ---
Date of Service Date of service: 04/22/22 Time of Service: 15:37 Assessment and Plan Assessment and plan (1) Sepsis: Status: Resolved Assessment and plan: she is no longer septic. Sources appear to be d/t deep seated decubiti wounds in her buttocks w/ osteomyelitis of her pelvis. She also has Klebsiella ESBL UTI however she has been chronically infected w/ Klebsiella pneumonia going back to December. Nevertheless, she is responding to antibiotics. She is on meropenem and vancomycin. Her urine cultures from 04/17 and 04/19 were positive for Klebsiella. Her blood cultures from 04/19 showed one of two sets positive for gram positive rods but repeat cultures from 04/20 shows no growth. I suspect that the blood culture is a false positive. Her wound culture from 04/21 is growing gram negative rods. (2) Bacteremia: Status: Suspected Assessment and plan: 1 of 2 sets positive for gram postive rods from 04/19 but repeat from 04/20 shows no growth. cont. Vancomycin and Meropenem (3) UTI (urinary tract infection): Status: Acute Assessment and plan: as above. Her SPC was changed this admission (4) Osteomyelitis, pelvis: Status: Acute Assessment and plan: see skin ulcer and sepsis for plan of care (5) Decubitus skin ulcer: Status: Acute Assessment and plan: wound debridement per surgery and wound care nursing. case discussed w/ wound care nurse and Dr. Mohan (6) Breast cancer, stage 4: Status: Acute Assessment and plan: non-curable. Palliative care consulted. Patient is considering hospice care (7) Spinal cord compression: Status: Acute Assessment and plan: causing her paraplegia and neurogenic bladder, hence the SPC and decubiti (8) History of DVT of lower extremity: Status: Acute Assessment and plan: currently on Dabigatran (9) Chronic anemia: Status: Chronic Assessment and plan: anemia of chronic disease. Will recheck in the a.m. as this has been drifting down. If she gets below 7 gm then consider transfusion if she desires to continue aggressive medical treatment (10) Neurogenic bladder: (11) Non-insulin dependent diabetes mellitus: Assessment and plan: last glychemoglobin A1c was 6.4% which is more in line w/ prediabetes. not currently monitoring her finger stick glucose nor are we currently treating w/ insulin. repeat glycohemoglobin is pending but may not be accurate in setting of her anemia. I will check fructosamine however, if she goes hospice then this becomes a moot point (12) Paraplegia: (13) Discharge planning issues: Status: Acute Assessment and plan: patient remains DNR/DNI. she is interested in hospice but would like to talk over w/ her whom she defers any major decisions. She would like to return home. If she does not go on hospice then she will need to resume home health services. Subjective Subjective Interval history since last seen: Patient has no complaints. She denies any pain. She asked numerous questions about her infection, the MRI results and her prognosis. She is open to the idea of entering into hospice. She understands that her cancer is very advanced and not curable and she is aware that her deep seated decubiti infections are now involving osteomyelitis of her pelvis and she has deep seated infections in the leg muscles as well as the soft tissues of her buttocks and that she has metastatic lesions in her pelvis. She indicated that her is away today taking his daughter to the airport but he will be here tomorrow and they will have further discussions about hospice. Exam Narrative Exam Narrative: Mrs. Back is alert and oriented, watching TV Lungs: clear Heart: RRR Abdomen: SPC in place, soft abdomen, non-distended, nontender As her wound has been debrided and packed, I did not inspect this today but will go over it tomorrow w/ the surgeon Objective Last Vital Signs Temp 37.3 C 04/22/22 11:14 Pulse 90 04/22/22 11:14 Resp 16 04/22/22 11:14 BP 126/82 04/22/22 11:14 Pulse Ox 94 04/22/22 11:14 Laboratory Results - last 24 hr 04/22/22 04/22/22 05:37 06:03 WBC 5.82 RBC 3.05 L Hgb 7.2 L Hct 23.8 L MCV 78 L MCH 23.6 L MCHC 30.3 L RDW 16.1 H Plt Count 325 MPV 8.8 Immature Gran % 0.5 Neutrophils % 64.7 Lymphocytes % 23.7 Monocytes % 7.0 Eosinophils % 3.6 Basophils % 0.5 Nucleated RBC % 0.0 Absolute Neutrophils 3.76 Absolute Lymphocytes 1.38 Absolute Monocytes 0.41 Absolute Eosinophils 0.21 Absolute Basophils 0.03 RBC Morphology See Below Polychromasia Present Hypochromasia 2+ Sodium 136 Potassium 4.0 Chloride 103 Carbon Dioxide 22.6 Anion Gap 10.4 BUN 6 L Creatinine 0.6 Est GFR (CKD-EPI 2020) 101.42 Glucose 91 Calcium 9.1 Magnesium 1.9 C-Reactive Protein 11.23 H Time Spent with Patient Time Spent with Patient: 35-49 minutes Time was spent: preparing to see the patient(eg.review tests), obtaining and/or reviewing separately otained hiistory, ordering medications,tests, procedures, referring, communicating with other health pediatric critical care nurse, indepentently interpreting results, counseling the patient and care coordination
[2022-04-22] MEDS: Magnesium Oxide 400 MG TAB PO (22:34)
[2022-04-22] MEDS: Normal Saline Flush 10 ML SYR IVP (22:34)
[2022-04-22] MEDS: Normal Saline 500 ML 30 ML IV (22:34)
[2022-04-23] VITALS (7 sets, daily range): BP systolic 96–127; BP diastolic 69–79; PULSE 79–101; RESP 14–16; TEMP 36.7–38.2; O2SAT 91–97
[2022-04-23] MEDS: Normal Saline Flush 10 ML SYR IVP (00:49)
[2022-04-23] MEDS: VANCOMYCIN/WATER (PEG) 1 GM/200 ML BAG IV (00:49)
[2022-04-23] MEDS: MEROPENEM 1 GM in Normal Saline 100 ML IVPB ×3 (05:32→22:43)
[2022-04-23 06:48] LABS: Abs Immature Grans 0.03 10^3/uL (0.0-0.06); Absolute Basophil Count 0.03 10^3/uL (0.0-0.2); Absolute Eosinophil Count 0.21 10^3/uL (0.0-0.7); Absolute Lymphocyte Count 1.46 10^3/uL (1.2-3.4); Absolute Monocyte Count 0.38 10^3/uL (0.1-0.8); Absolute Neutrophil Count 3.01 10^3/uL (1.2-6.7); Basophils % 0.6; Eosinophils % 4.1; HCT 26.8 % (36.0-46.0); HGB 8.4 g/dL (11.2-15.7); Immature Grans % 0.6; Lymphocytes % 28.5; MCH 23.9 pg (27.0-33.0); MCHC 31.3 % (32.0-36.0); MCV 76 fL (80-95); MPV 8.6 fL (8.0-11.0); Monocytes % 7.4; Neutrophils % 58.8; Platelet Count 402 10^3/uL (130-400); RBC 3.51 10^6/uL (3.93-5.22); RDW 16.2 % (11.7-14.6); RDW-SD 45.2 fL; WBC 5.12 10^3/uL (4.4-10.8)
[2022-04-23 06:56] LABS: Anion Gap 11.1 mmol/L (3-11); BUN 6 mg/dL (7-18); CO2 23.9 mmol/L (21.0-32.0); CREATININE 0.6 mg/dL (0.55-1.02); Calcium 9.7 mg/dL (8.5-10.1); Chloride 102 mmol/L (98-107); Estimated GFR 101.42 (mL/min/1.73m2); Glucose 92 mg/dL (74-106); Potassium 4.1 mmol/L (3.5-5.1); Sodium 137 mmol/L (136-145)
[2022-04-23] MEDS: Acetaminophen 325 MG TAB PO ×2 (08:45→21:40)
[2022-04-23] MEDS: Midodrine 2.5 MG TAB 5 MG PO ×3 (08:45→18:02)
[2022-04-23] MEDS: Gabapentin 300 MG CAP 600 MG PO ×3 (08:45→20:53)
[2022-04-23] MEDS: Multivitamin TAB 1 TAB PO (08:46)
[2022-04-23] MEDS: Pantoprazole 40 MG TABCR PO (08:46)
[2022-04-23] MEDS: Letrozole 2.5 MG TAB PO (08:46)
[2022-04-23] MEDS: Cyanocobalamin 500 MCG TAB 1000 MCG PO (08:46)
[2022-04-23] MEDS: Potassium Chloride 20 MEQ TABCR PO ×2 (08:47→20:53)
[2022-04-23 09:18] LABS: Lactate 0.9 mmol/L (0.6-1.4)
[2022-04-23 09:44] LABS: Vancomycin, Trough 26.1 ug/mL (10.0-20.0)
[2022-04-23 09:50] LABS: Procalcitonin 0.2 ng/mL
[2022-04-23 10:49] LABS: C Diff PCR Negative (Negative)
--- NOTE | 2022-04-23 11:32 | SCONE_ITS ---
Date of service: 04/23/22 Time of Service: 11:33 Assessment and Plan Assessment and plan (1) Decubitus skin ulcer: Status: Acute Assessment and plan: This is a 62-yo female with paraplegia, and metastatic breast cancer to the bone with pelvic bone osteomyelitis. On my exam, no abscess cavity was encountered. I believe that previous dressing changes performed by the wound care nurses liberated the pocket, as they both reported green and brown malodorous drainage, which was not found today. --continue local wound care per wound care nurse --optimize nutrition --consider VAC dressing --abx and supportive care per Hospitalist service --will sign off; please re-consult as necessary Pt discussed with Dr. Pagan History of Present Illness History of Present Illness Chief Complaint: fevers, decubitus ulcer Narrative: This is a 62 yo F with paraplegia secondary to metastatic breast cancer to spine, suprapubic catheter, h/o DVT on Pradaxa, and chronic deep left ischial decubitus ulcer who was called this evening with positive blood culture drawn during an ED visit yesterday 04/19/22.? She first started feeling sick on Sunday 04/16 when she felt a little feverish. Sunday04/17/22 her noted some intermittent confusion.? Home health came and took a urine culture and changed her catheter.? She continued to have intermittent symptoms and her culture returned klebsiella.? She was seen in the emergency room and given a dose of IV piperacillin/tazobactam.? Admission was considered but at that time she had no elevation of WBC and she appeared non-toxic so the decision was made to treat with fosfomycin orally and discharge home.? This evening the blood culture drawn 04/19/22 returned with gram positives and she was called to return. She is getting wound care by home health for the chronic left gluteal decubitus ulcer.? Wound vac has been approved but not started. [facility] All Active Problems (Updated 04/22/22 @ 16:23 by Selvin Pagan MD) Osteomyelitis, pelvis (Acute) Breast cancer, stage 4 (Acute) Discharge planning issues (Acute) Suprapubic catheter (Acute) History of DVT of lower extremity (Acute) UTI (urinary tract infection) (Acute) UTI (urinary tract infection) (Acute) Ambulatory dysfunction (Acute) Chronic anemia (Chronic) Decubitus skin ulcer (Acute) Recurrent breast cancer (Acute) Hx of mastectomy (Chronic) Spinal cord compression (Acute) Presence of inferior vena cava filter (Acute) Prediabetes (Acute) Fatty liver (Acute) Medical History (Updated 04/22/22 @ 16:23 by Selvin Pagan MD) GERD (gastroesophageal reflux disease) Hyperlipidemia Hypotension Metastatic breast cancer Neurogenic bladder Non-insulin dependent diabetes mellitus Normocytic normochromic anemia Paraplegia Surgical History H/O bilateral mastectomy Hx of appendectomy S/P cervical spinal fusion S/P IVC filter Family History Brother Hypertension Mother Breast cancer Other Heart disease Social History (Updated 04/21/22 @ 00:04 by Brad Mistry) Smoking/Tobacco Use Status: Never Smoking risk assessment performed?: Yes Alcohol Intake: never Drug use: Never Substance use type: does not use Current gender identity: female Do you feel safe at home: Yes Do you feel safe in your relationship?: Yes Additional Social history: unable to assess privately. Lives with Hao in [place]. 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 Exam Const General: cooperative, comfortable and no acute distress Nutritional Appearance: thin Orientation: alert, awake and oriented x3 Resp Effort & Inspection: normal respiratory effort and able to speak in complete se ntences GI Inspection: non-distended Palpation: soft and nontender Back/Spine/Pelvis Other: Grade 4 decubitus ulcer over left ischial tuberosity with clean granulation tissue, a little bit of fibrinous exudate, and palpable bone. Deep palpation of the wound did not encounter any unopened pockets, areas of fluctuance or drainage. There was no odor. There is a deep extension at 6 o'clock, and then tissue undermiing that extends from about 9 o'clock to 2 o'clock. No areas of eschar/devitalized tissue were found Psych Mental Status: mental status grossly normal Attitude: cooperative Insight: insight good Judgment: judgment good Results Last Vital Signs Temp 100.8 F H 04/23/22 08:45 Pulse 101 H 04/23/22 08:07 Resp 16 04/23/22 08:07 BP 101/69 04/23/22 08:07 Pulse Ox 95 01/15/23 08:07 Labs Result diagrams: 04/23/22 06:25 04/23/22 06:25 Labs: Laboratory Results - last 24 hr 04/23/22 04/23/22 04/23/22 06:25 06:25 06:25 WBC 5.12 RBC 3.51 L Hgb 8.4 L Hct 26.8 L MCV 76 L MCH 23.9 L MCHC 31.3 L RDW 16.2 H Plt Count 402 H MPV 8.6 Immature Gran % 0.6 Neutrophils % 58.8 Lymphocytes % 28.5 Monocytes % 7.4 Eosinophils % 4.1 Basophils % 0.6 Nucleated RBC % 0.0 Absolute Neutrophils 3.01 Absolute Lymphocytes 1.46 Absolute Monocytes 0.38 Absolute Eosinophils 0.21 Absolute Basophils 0.03 VBG Lactate Sodium 137 Potassium 4.1 Chloride 102 Carbon Dioxide 23.9 Anion Gap 11.1 H BUN 6 L Creatinine 0.6 Est GFR (CKD-EPI 2020) 101.42 Glucose 92 Calcium 9.7 Procalcitonin Stl C.difficile Tox PCR Vancomycin Trough Patient ABO/Rh A Positive Antibody Screen NEGATIVE 04/23/22 04/23/22 04/23/22 09:05 09:05 09:05 WBC RBC Hgb Hct MCV MCH MCHC RDW Plt Count MPV Immature Gran % Neutrophils % Lymphocytes % Monocytes % Eosinophils % Basophils % Nucleated RBC % Absolute Neutrophils Absolute Lymphocytes Absolute Monocytes Absolute Eosinophils Absolute Basophils VBG Lactate 0.9 Sodium Potassium Chloride Carbon Dioxide Anion Gap BUN Creatinine Est GFR (CKD-EPI 2020) Glucose Calcium Procalcitonin 0.2 Stl C.difficile Tox PCR Vancomycin Trough 26.1 H* Patient ABO/Rh Antibody Screen 04/23/22 09:40 WBC RBC Hgb Hct MCV MCH MCHC RDW Plt Count MPV Immature Gran % Neutrophils % Lymphocytes % Monocytes % Eosinophils % Basophils % Nucleated RBC % Absolute Neutrophils Absolute Lymphocytes Absolute Monocytes Absolute Eosinophils Absolute Basophils VBG Lactate Sodium Potassium Chloride Carbon Dioxide Anion Gap BUN Creatinine Est GFR (CKD-EPI 2020) Glucose Calcium Procalcitonin Stl C.difficile Tox PCR Negative Vancomycin Trough Patient ABO/Rh Antibody Screen Imaging Imaging Studies: MRI Pelvis (04/21/2022): FINDINGS: Bones:? There is no fracture or contusion pattern. There are numerous expansile lytic enhancing lesions throughout the visualized bones.? These include the pe lvis, proximal femur, lower lumbar spine and sacral bones.? The findings are consistent with a neoplastic process.? This may include metastatic disease, myeloma or lymphoma.? There is destruction of the cortex in the left ischial tuberosity.? There is an adjacent briefly enhancing fluid collection measuring 3.1 x 3.2 x 2.2 cm consistent with an abscess.? This abscess communicates via a fistulous tract to a deep decubitus ulcer in the left buttock there is associated skin thickening and subcutaneous edema which shows enhancement.? Musculotendinous structures:? There is edema and enhancement involving the left abductor brevis muscle which and is adjacent to and appears to communicate with the abscess and left buttock ulcer.? This likely reflects infectious myositis.? Edema and enhancement in the proximal attachment of the adductor longus muscle. Soft tissues: As described above there is a deep soft tissue ulcer in the left buttock with a fistulous tract extending into the left ischial tuberosity where there is an associated abscess.? There is skin thickening and surrounding edema adjacent to the deep ulcer.? In the right buttock, there is an area of enhancement and soft tissue edema extending to the right ischial tuberosity.? There is enhancement of the right ischial tuberosity.? No focal fluid collection is seen at this area at this time. IMPRESSION: 1. Numerous expansile and lytic lesions in the visualized bones consistent with malignancy.? This may represent metastatic disease, myeloma or possibly lymphoma.? Please correlate with the patient's clinical history. 2. Deep decubitus ulcer within the left buttocks with a fistulous tract extending to the left ischial tuberosity where there is a 3.1 x 3.2 x 2.2 cm abscess.? Abnormal signal enhancement of the ischial tuberosity is consistent with acute osteomyelitis. 3. Findings concerning for developing decubitus ulcer in the right buttocks.? Enhancement of the right ischial tuberosity raises a question of osteomyelitis in this region.?
--- NOTE | 2022-04-23 12:03 | PGE_ITS ---
Date of Service Date of service: 04/23/22 Time of Service: 12:03 Assessment and Plan Assessment and plan (1) Bacteremia: Status: Suspected Assessment and plan: 1 of 2 sets positive for gram postive rods from 04/19 but repeat from 04/20 shows no growth. cont. Vancomycin and Meropenem Urine cultures from 04/17/2022 and 04/19/2022 both show Klebsiella pneumoniae with ESBL sensitive to imipenem. Blood cultures from 04/19/2022 showed 1 out of 2 sets positive for gram-positive rods most likely contaminant. Repeat blood cultures from 04/20/2022 shows no growth. Wound culture from 04/21/2022 shows mixed gram-positive rogelio and gram- negative rods. Repeat blood culture was drawn this morning because of recurrent fevers. Patient remains on meropenem 1 g every 8 hours along with vancomycin 750 mg IV every 12 hours. Last vancomycin trough was from 04/23/2022 was elevated at 26.1 at which point her vancomycin dose was reduced to 750 mg every 12 hours from its previous dose of 1 g every 12 hours. Continued aggressive wound care per wound care nurses. Dr. Mohan is recommending obtaining a wound vacuum. Dr. Mohan's assistance in her wound care is appreciated. Per Dr. Mohan's notes and from my discussion with her she did not find any pocket of pus when she probed the wound. Professional time spent interviewing and examining patient, discussion of goals of care with hospital team (care management, nursing and consulting professionals) was 40 minutes. (2) UTI (urinary tract infection): Status: Acute Assessment and plan: as above. Her SPC was changed this admission (3) Osteomyelitis, pelvis: Status: Acute Assessment and plan: see skin ulcer and sepsis for plan of care. Patient will require long-term parenteral antibiotics. I will discuss with her oncologist her prognosis and plan of treatment for her cancer and then have a discussion with infectious disease regarding optimal antibiotic treatment. (4) Decubitus skin ulcer: Status: Acute Assessment and plan: wound debridement per surgery and wound care nursing. case discussed w/ wound care nurse and Dr. Mohan (5) Breast cancer, stage 4: Status: Acute Assessment and plan: non-curable. Palliative care consulted. Patient is considering hospice care, I will discuss with her oncologist her prognosis and current plans for palliative treatment. (6) Spinal cord compression: Status: Acute Assessment and plan: causing her paraplegia and neurogenic bladder, hence the SPC and decubiti, initial metastatic disease was found in her cervical vertebrae for which she underwent surgery and radiation treatment. This was performed out in [place]. (7) History of DVT of lower extremity: Status: Acute Assessment and plan: currently on Dabigatran (8) Chronic anemia: Status: Chronic Assessment and plan: anemia of chronic disease. Will recheck in the a.m. as this has been drifting down. If she gets below 7 gm then consider transfusion if she desires to continue aggressive medical treatment (9) Neurogenic bladder: Assessment and plan: Suprapubic catheter replacement this admission (10) Non-insulin dependent diabetes mellitus: Assessment and plan: last glychemoglobin A1c was 6.4% which is more in line w/ prediabetes. not currently monitoring her finger stick glucose nor are we currently treating w/ insulin. repeat glycohemoglobin is pending but may not be accurate in setting of her anemia. I will check fructosamine however, if she goes hospice then this becomes a moot point (11) Paraplegia: (12) Discharge planning issues: Status: Acute Assessment and plan: patient remains DNR/DNI. she is interested in hospice but would like to talk over w/ her whom she defers any major decisions. She would like to return home. If she does not go on hospice then she will need to resume home health services. I had a discussion today with the patient as well as her regarding hospice versus palliative care. Apparently they just moved here in October from [place] and has only had 1 meeting with her oncologist at [facility]. indicated they were waiting for follow-up blood tests and radiologic imaging. I told him we would forward information to Dr. Aparicio at [facility] and I will have the discussion with her regarding the patient's prognosis and what palliative chemotherapy options are recommended. indicates that he and his are still interested in hospice but were just not sure whether they were ready to enter into that stage until they have a discussion with Dr. Aparicio. Subjective Subjective Patient reports: no new complaints, feels better, tolerating a regular diet and fever; denies nausea or shortness of breath Interval history since last seen: Patient's was here visiting with her when I examined her. Answered his questions. Mrs. 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 She underwent surgery and radiation treatment while in [place] and did not tolerate chemotherapy. I went over her current medical problems with her and her explained that she is continue to have fevers she still has deep-seated decubitus wounds in her buttocks with involvement of osteomyelitis of her left ischium. Dr. Mohan, general surgeon, examined the patient's buttock wound and feels that there is no pocket of abscess although there is tunneling down to the bone. I explained to the patient and her that it is unlikely that her wounds are going to heal out given the fact that she has bony metastasis Involving her pelvis and lower lumbar spine and sacral bones as well as proximal femur. Her asked whether or not her MRI scans have been shared with her oncologist Dr. Debra Aparicio from [facility]. They report they just met with her couple weeks ago. I told him that I would be sure that our radiology department send the images to [facility] and they will speak with Dr. Aparicio about her care. Exam Narrative Exam Narrative: Wanda is alert and oriented person place time circumstance. She appears to be in no distress. She is lying in bed talking with her is preparing to have her lunch. Lungs are clear to auscultation Heart is regular rate and rhythm Abdomen soft nondistended normal bowel sounds Objective Last Vital Signs Temp 36.9 C 04/23/22 11:36 Pulse 79 04/23/22 11:36 Resp 16 04/23/22 11:36 BP 108/71 04/23/22 11:36 Pulse Ox 97 04/23/22 11:36 Laboratory Results - last 24 hr 04/23/22 04/23/22 04/23/22 06:25 06:25 06:25 WBC 5.12 RBC 3.51 L Hgb 8.4 L Hct 26.8 L MCV 76 L MCH 23.9 L MCHC 31.3 L RDW 16.2 H Plt Count 402 H MPV 8.6 Immature Gran % 0.6 Neutrophils % 58.8 Lymphocytes % 28.5 Monocytes % 7.4 Eosinophils % 4.1 Basophils % 0.6 Nucleated RBC % 0.0 Absolute Neutrophils 3.01 Absolute Lymphocytes 1.46 Absolute Monocytes 0.38 Absolute Eosinophils 0.21 Absolute Basophils 0.03 VBG Lactate Sodium 137 Potassium 4.1 Chloride 102 Carbon Dioxide 23.9 Anion Gap 11.1 H BUN 6 L Creatinine 0.6 Est GFR (CKD-EPI 2020) 101.42 Glucose 92 Calcium 9.7 Procalcitonin Stl C.difficile Tox PCR Vancomycin Trough Patient ABO/Rh A Positive Antibody Screen NEGATIVE 04/23/22 04/23/22 04/23/22 09:05 09:05 09:05 WBC RBC Hgb Hct MCV MCH MCHC RDW Plt Count MPV Immature Gran % Neutrophils % Lymphocytes % Monocytes % Eosinophils % Basophils % Nucleated RBC % Absolute Neutrophils Absolute Lymphocytes Absolute Monocytes Absolute Eosinophils Absolute Basophils VBG Lactate 0.9 Sodium Potassium Chloride Carbon Dioxide Anion Gap BUN Creatinine Est GFR (CKD-EPI 2020) Glucose Calcium Procalcitonin 0.2 Stl C.difficile Tox PCR Vancomycin Trough 26.1 H* Patient ABO/Rh Antibody Screen 04/23/22 09:40 WBC RBC Hgb Hct MCV MCH MCHC RDW Plt Count MPV Immature Gran % Neutrophils % Lymphocytes % Monocytes % Eosinophils % Basophils % Nucleated RBC % Absolute Neutrophils Absolute Lymphocytes Absolute Monocytes Absolute Eosinophils Absolute Basophils VBG Lactate Sodium Potassium Chloride Carbon Dioxide Anion Gap BUN Creatinine Est GFR (CKD-EPI 2020) Glucose Calcium Procalcitonin Stl C.difficile Tox PCR Negative Vancomycin Trough Patient ABO/Rh Antibody Screen Time Spent with Patient Time Spent with Patient: 35-49 minutes Time was spent: preparing to see the patient(eg.review tests), obtaining and/or reviewing separately otained hiistory, ordering medications,tests, procedures, referring, communicating with other health aged or disabled care worker (Discussing patient care with Dr. Mohan), indepentently interpreting results, counseling the patient and care coordination
[2022-04-23 13:32] LABS: Lab Add On Test DONE
[2022-04-23] MEDS: VANCOMYCIN/WATER (PEG) 750 MG/150 ML BAG 75 MG IV (16:08)
[2022-04-23] MEDS: Magnesium Oxide 400 MG TAB PO (20:53)
[2022-04-24] MEDS: VANCOMYCIN/WATER (PEG) 750 MG/150 ML BAG 75 MG IV ×2 (04:05→15:59)
[2022-04-24] MEDS: Normal Saline Flush 10 ML SYR IVP ×2 (04:06→21:37)
[2022-04-24] MEDS: Normal Saline 500 ML 30 ML IV (04:10)
[2022-04-24] MEDS: MEROPENEM 1 GM in Normal Saline 100 ML IVPB ×3 (06:39→21:37)
--- NOTE | 2022-04-24 07:58 | W.PALLCONSUL ---
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 She first started feeling sick on Sunday 04/16 when she felt a little feverish. Sunday04/17/22 her noted some intermittent confusion.? Home health came and took a urine culture and changed her catheter.? She continued to have intermittent symptoms and her culture returned klebsiella.? She was seen in the emergency room and given a dose of IV piperacillin/tazobactam.? Admission was considered but at that time she had no elevation of WBC and she appeared non-toxic so the decision was made to treat with fosfomycin orally and discharge home.? This evening the blood culture drawn 04/19/22 returned with gram positives and she was called to return. She feels cold/chilled currently, doesn't feel hot.? Her mouth is dry.? She denies pain.? SHe has been eating.? She is getting wound care for the chronic wound on left hip.? Wound vac has been approved but not started.? It drains a lot. ? Interim Hx: Wanda is feeling okay. She states that she is hoping they can find a medication to help her with her positive blood cultures. She is presently receiving meropenem and Vanco. If they are unable to do this she feels that hospice is the reasonable alternative. She and her have discussed this. She did have a good [place]. She is vented along with her but she has recent visits from family members. Assessment and Plan Assessment and plan (1) Osteomyelitis, pelvis: Status: Acute (2) Breast cancer, stage 4: Status: Acute (3) Bacteremia: Status: Suspected (4) Palliative care patient: Status: Acute Assessment and plan: Wanda and her have met once with the oncologist. They do plan to meet again. She is hopeful that the hospitalist will be able to speak with them regarding options etc. She states that she is not afraid of . She feels like she is in a win-win situation. She can stay alive longer as long as life is good. She is certain that if she dies she will be united with her maker. She feels that either option is excellent. She and her have talked about hospice and they would like to find out what her oncologist and the blood cultures show. As usual, she remains extremely optimistic about the future and at the same time realistic about options etc. I did discuss with Dr. Alberts. Will continue to follow and palliative care. Review of Systems Narrative: She has consistently not had any pain. She is no longer feeling fevers and chills. She is anxious to go home as soon as possible PFSH All Active Problems (Updated 04/25/22 @ 07:27 by Isela Toro MD, DC) Palliative care patient (Acute) Osteomyelitis, pelvis (Acute) Breast cancer, stage 4 (Acute) Discharge planning issues (Acute) Suprapubic catheter (Acute) History of DVT of lower extremity (Acute) UTI (urinary tract infection) (Acute) UTI (urinary tract infection) (Acute) Ambulatory dysfunction (Acute) Chronic anemia (Chronic) Decubitus skin ulcer (Acute) Recurrent breast cancer (Acute) Hx of mastectomy (Chronic) Spinal cord compression (Acute) Presence of inferior vena cava filter (Acute) Prediabetes (Acute) Fatty liver (Acute) Medical History (Updated 04/25/22 @ 07:27 by Isela Toro MD, DC) GERD (gastroesophageal reflux disease) Hyperlipidemia Hypotension Metastatic breast cancer Neurogenic bladder Non-insulin dependent diabetes mellitus Normocytic normochromic anemia Paraplegia Surgical History H/O bilateral mastectomy Hx of appendectomy S/P cervical spinal fusion S/P IVC filter Family History Brother Hypertension Mother Breast cancer Other Heart disease Social History (Updated 04/21/22 @ 00:04 by Brad Mistry) Smoking/Tobacco Use Status: Never Smoking risk assessment performed?: Yes Alcohol Intake: never Drug use: Never Substance use type: does not use Current gender identity: female Do you feel safe at home: Yes Do you feel safe in your relationship?: Yes Additional Social history: unable to assess privately. Lives with Hao in [place]. 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 Exam Narrative Exam Narrative: Wanda is lying in her bed. She is smiling. She greets me by name. She talks about how wonderful everyone has been with her today and the last few days. She is hopeful that she can get a medication that will help her with her positive blood cultures. She immediately turns the conversation back and asks me how I am doing. Her heart is regular. Her lungs are clear. Abdomen soft nontender. She has a suprapubic catheter in place. Mood is excellent Results Last Vital Signs Temp 100.0 F H 04/23/22 22:58 Pulse 89 04/23/22 22:58 Resp 14 04/23/22 22:58 BP 117/76 04/23/22 22:58 Pulse Ox 97 04/23/22 22:58 Labs Result diagrams: 04/23/22 06:25 04/23/22 06:25 Labs: Laboratory Results - last 24 hr 04/23/22 04/23/22 04/23/22 06:25 06:25 09:05 VBG Lactate Procalcitonin Stl C.difficile Tox PCR Vancomycin Trough 26.1 H* Add-On Test Request DONE Patient ABO/Rh A Positive Antibody Screen NEGATIVE 04/23/22 04/23/22 04/23/22 09:05 09:05 09:40 VBG Lactate 0.9 Procalcitonin 0.2 Stl C.difficile Tox PCR Negative Vancomycin Trough Add-On Test Request Patient ABO/Rh Antibody Screen
[2022-04-24 08:43] VITALS: BP 97/65; PULSE 103; RESP 18; TEMP 37.2; O2SAT 97
[2022-04-24] MEDS: Midodrine 2.5 MG TAB 5 MG PO ×3 (09:08→17:52)
[2022-04-24] MEDS: Pantoprazole 40 MG TABCR PO (09:08)
[2022-04-24] MEDS: Gabapentin 300 MG CAP 600 MG PO ×3 (09:08→21:19)
[2022-04-24] MEDS: Letrozole 2.5 MG TAB PO (09:08)
[2022-04-24] MEDS: Multivitamin TAB 1 TAB PO (09:08)
[2022-04-24] MEDS: Potassium Chloride 20 MEQ TABCR PO ×2 (09:09→21:19)
[2022-04-24] MEDS: Cyanocobalamin 500 MCG TAB 1000 MCG PO (09:09)
[2022-04-24 14:48] VITALS: BP 116/70; PULSE 93; RESP 18; TEMP 37.3; O2SAT 97
--- NOTE | 2022-04-24 15:52 | W.NUTCONSULT ---
Date of service: 04/24/22 Time of Service: 15:52 Nutritional Consult ASSESSMENT: Met with Wanda olsen in view of increased nutritional needs as with stage 4 pressure wound. Dx with osteomyelitis in pelvis, stage 4 breast CA admitted with UTI. Following regular meal plan with variable intake. Estimated Needs: [id number] kcal, 85-90 g protein Estimated intake in last 2 days: 1200 kcal, 50 g protein NUTRITIONAL DIAGNOSIS: Inadequate macronutrient intake secondary increased nutrient needs INTERVENTION: Continue regular meal plan Will provide high protein snacks per preferences twice daily 1 oz Proheal TID, 500 mg Vit C BID, 220 Zinc Sulfate MONITORING AND EVALUATION: po intake, labs, signs of healing Time Spent in Nutritional Counseling and Treatment: 20
--- NOTE | 2022-04-24 16:29 | PDOC.CMPRO ---
- If Service Date Differs Date of service: 04/24/22 Time of Service: 16:29 Care Management Progress Note S/O: Wanda remains inpatient; closely monitored with wound management as well. Per provider, she plans on returning home w/ home health providing antibiotic treatment. She has expressed interest in hospice but has been indecisive and defers to her who would like Dr. Aparicio's input ([place] [facility] CM continues to follow. A: 62 year old female admitted to [facility] 04/20/22 for Bacteremia, UTI P: Anticipate Wanda will discharge home with a resumption of services-with consideration of Hospice to be discussed with her Palliative Provider; Dr. Toro. She will follow up with her PCP and plan of care and transport with her . CM will continue to offer support to Wanda and assess for discharge needs.
--- NOTE | 2022-04-24 17:24 | PGE_ITS ---
Date of Service Date of service: 04/24/22 Time of Service: 17:24 Assessment and Plan Assessment and plan (1) Bacteremia: Status: Suspected Assessment and plan: 1 of 2 sets positive for gram postive rods from 04/19 but repeat from 04/20 shows no growth and repeat blood cultures from 04/23 shows no growth. Her wound culture is growing Proteus species.Urine cultures from 04/17/2022 and 04/19/2022 both show Klebsiella pneumoniae with ESBL sensitive to imipenem. I will ask anesthesia to place midline for longer antibiotic treatment to be given Continued aggressive wound care per wound care nurses. Dr. Mohan is recommending obtaining a wound vacuum. Dr. Mohan's assistance in her wound care is appreciated. Per Dr. Mohan's notes and from my discussion with her she did not find any pocket of pus when she probed the wound. Professional time spent interviewing and examining patient, discussion of goals of care with hospital team (care management, nursing and consulting professi onals) was 25 minutes. (2) UTI (urinary tract infection): Status: Acute Assessment and plan: as above. Her SPC was changed this admission (3) Osteomyelitis, pelvis: Status: Acute Assessment and plan: see skin ulcer and sepsis for plan of care. Patient will require long-term parenteral antibiotics. I will discuss with her oncologist her prognosis and plan of treatment for her cancer and then have a discussion with infectious disease regarding optimal antibiotic treatment. (4) Decubitus skin ulcer: Status: Acute Assessment and plan: wound debridement per surgery and wound care nursing. case discussed w/ wound care nurse and Dr. Mohan over this past weekend (5) Breast cancer, stage 4: Status: Acute Assessment and plan: non-curable. Palliative care consulted. Patient is considering hospice care, I will discuss with her oncologist her prognosis and current plans for palliative treatment however patient has already (6) Spinal cord compression: Status: Acute Assessment and plan: causing her paraplegia and neurogenic bladder, hence the SPC and decubiti, initial metastatic disease was found in her cervical vertebrae for which she underwent surgery and radiation treatment. This was performed out in [place]. (7) History of DVT of lower extremity: Status: Acute Assessment and plan: currently on Dabigatran (8) Chronic anemia: Status: Chronic Assessment and plan: anemia of chronic disease. Repeat Hb was 8.4 gm yesterday up form a low of 7.2 gm (9) Neurogenic bladder: Assessment and plan: Suprapubic catheter replacement this admission (10) Non-insulin dependent diabetes mellitus: Assessment and plan: last glychemoglobin A1c was 6.4% which is more in line w/ prediabetes. not currently monitoring her finger stick glucose nor are we currently treating w/ insulin. repeat glycohemoglobin is pending but may not be accurate in setting of her anemia. I will check fructosamine however, if she goes hospice then this becomes a moot point (11) Paraplegia: (12) Discharge planning issues: Status: Acute Assessment and plan: patient remains DNR/DNI. patient intends to return home w/ home health providing antibiotic treatment. She has expressed interest in hospice but has been indecisive and defers to her who would like Dr. Aparicio's input (her oncologist from [facility] [place]) Subjective Subjective Interval history since last seen: Wanda offers no new concerns other than she wants to know if the antibiotics can be given at home. I asked her how her conversation w/ Dr. Toro went today and whether or not hospice came up in conversation. She says that they did not discuss hospice specifically but reviewed her cancer workup and how things have progressed. Wanda asked questions as to whether or not hospice could provide her some relief at home. I indicated that they could but they can not provide 24h care. Per Wanda they seem to have all of the necessary medical equipment she needs to be care for at home. She asked how her infection is doing. I explained that her decubitus wounds are unlikely to ever completely heal because of the baylee metastasis in her pelvis and legs and spine. She has indicated that she is not going to do chemotherapy and thus my conversation w/ her regarding hospice. I told her that I would be consulting anesthesia tomorrow to place a midline so we can get her home later this week. Her wound culture is growing Proteus while her urine is growing Klebsiella (ESBL) for which she is on Meropenem 1 gm IVPB Q8hr. I think we can switch her to Ertapenem which can be given once per day and her Vancomycin can be stopped as she has not grown any Staph in either her blood nor in her urine or her wound. Exam Narrative Exam Narrative: Wanda is sitting up eating her dinner Abdomen: soft, nontender, nondistended SPC in place draining clear yellow urine Objective Last Vital Signs Temp 37.3 C 04/24/22 14:48 Pulse 93 H 04/24/22 14:48 Resp 18 04/24/22 14:48 BP 116/70 04/24/22 14:48 Pulse Ox 97 04/24/22 14:48 Laboratory Results - last 24 hr 04/21/22 04/23/22 06:30 06:[address] Glu mg/dL 154 Hemoglobin A1c 7.0 H Cancelled Time Spent with Patient Time Spent with Patient: 25-34 minutes Time was spent: preparing to see the patient(eg.review tests), referring, communicating with other health care management coordinator, counseling the patient and care coordination
[2022-04-24 19:46] LABS: Campylobacter PCR Negative (Negative); Salmonella PCR Negative (Negative); Shiga Toxin PCR Negative (Negative); Shigella/Enteroinvasive Ecoli Negative (Negative)
[2022-04-24 21:14] VITALS: BP 122/75; PULSE 95; RESP 18; TEMP 38.3; O2SAT 95
[2022-04-24] MEDS: Lactobacillus Acidophilus CAP 1 CAP PO (21:19)
[2022-04-24] MEDS: Magnesium Oxide 400 MG TAB PO (21:19)
[2022-04-24] MEDS: Acetaminophen 325 MG TAB PO (21:20)
[2022-04-25 03:36] VITALS: BP 101/67; PULSE 91; RESP 18; TEMP 36.6; O2SAT 92
[2022-04-25] MEDS: VANCOMYCIN/WATER (PEG) 750 MG/150 ML BAG 75 MG IV ×2 (03:37→16:40)
[2022-04-25] MEDS: MEROPENEM 1 GM in Normal Saline 100 ML IVPB ×3 (05:51→21:40)
[2022-04-25 07:29] VITALS: BP 129/80; PULSE 91; RESP 14; TEMP 36.4; O2SAT 98
[2022-04-25] MEDS: Letrozole 2.5 MG TAB PO (10:01)
[2022-04-25] MEDS: Midodrine 2.5 MG TAB 5 MG PO ×3 (10:01→17:48)
[2022-04-25] MEDS: Pantoprazole 40 MG TABCR PO (10:01)
[2022-04-25] MEDS: Lactobacillus Acidophilus CAP 1 CAP PO ×2 (10:01→20:07)
[2022-04-25] MEDS: Gabapentin 300 MG CAP 600 MG PO ×3 (10:02→21:40)
[2022-04-25] MEDS: Cyanocobalamin 500 MCG TAB 1000 MCG PO (10:02)
[2022-04-25] MEDS: Potassium Chloride 20 MEQ TABCR PO ×2 (10:02→20:07)
[2022-04-25] MEDS: Multivitamin TAB 1 TAB PO (10:02)
[2022-04-25 12:27] LABS: Estimated Average Glucose 154 mg/dL
--- NOTE | 2022-04-25 13:18 | W.PM.PROGNOT ---
Date of Service Date of service: 04/25/22 Time of Service: 13:18 Assessment and Plan Assessment and plan (1) Bacteremia: Status: Suspected Assessment and plan: 1 of 2 sets positive for gram postive rods from 04/19 but repeat from 04/20 shows no growth and repeat blood cultures from 04/23 shows no growth. Her wound culture is growing Proteus species that is pansensitive.Urine cultures from 04/17/2022 and 04/19/2022 both show Klebsiella pneumoniae with ESBL sensitive to imipenem. I will ask anesthesia to place midline for longer antibiotic treatment to be given Continued aggressive wound care per wound care nurses. Dr. Mohan is recommending obtaining a wound vacuum however, per my discussion w/ the wound care nurse, given her osteomyelitis and her bone mets to her pelvis at the base of the wound, a wound vaccuum is contraindicated. Dr. Mohan's assistance in her wound care is appreciated. Per Dr. Mohan's notes and from my discussion with her she did not find any pocket of pus when she probed the wound. Once her midline is in place and home infusion antibiotics have been ordered, then we can proceed w/ dc home w/ home health wound care nurse to follow and patient to followup w/ Dr. Aparicio Professional time spent interviewing and examining patient, discussion of goals of care with hospital team (care management, nursing and consulting professionals) was 35 minutes. (2) UTI (urinary tract infection): Status: Acute Assessment and plan: as above. Her SPC was changed this admission (3) Osteomyelitis, pelvis: Status: Acute Assessment and plan: see skin ulcer and sepsis for plan of care. Patient will require long-term parenteral antibiotics. I discussed her case w/ Dr. Gray from [facility] oncology. I am awaiting I.D. call. (4) Decubitus skin ulcer: Status: Acute Assessment and plan: wound debridement per surgery and wound care nursing. case discussed w/ wound care nurse and Dr. Mohan over this past weekend (5) Breast cancer, stage 4: Status: Acute Assessment and plan: non-curable. Palliative care consulted. Patient is considering hospice care, however, Dr. Gray indicated that depending on the genetic mutations of her cancer she may be eligible for palliative treatment. (6) Spinal cord compression: Status: Acute Assessment and plan: causing her paraplegia and neurogenic bladder, hence the SPC and decubiti, initial metastatic disease was found in her cervical vertebrae for which she underwent surgery and radiation treatment. This was performed out in [place]. (7) History of DVT of lower extremity: Status: Acute Assessment and plan: currently on Dabigatran (8) Chronic anemia: Status: Chronic Assessment and plan: anemia of chronic disease. Repeat Hb was 8.4 gm yesterday up form a low of 7.2 gm (9) Neurogenic bladder: Assessment and plan: Suprapubic catheter replacement this admission (10) Non-insulin dependent diabetes mellitus: Assessment and plan: last glychemoglobin A1c was 6.4% which is more in line w/ prediabetes. not currently monitoring her finger stick glucose nor are we currently treating w/ insulin. repeat glycohemoglobin is pending but may not be accurate in setting of her anemia. I will check fructosamine however, if she goes hospice then this becomes a moot point (11) Paraplegia: (12) Discharge planning issues: Status: Acute Assessment and plan: patient remains DNR/DNI. patient intends to return home w/ home health providing antibiotic treatment. She has expressed interest in hospice but has been indecisive and defers to her who would like Dr. Aparicio's input (her oncologist from [facility]) Subjective Subjective Interval history since last seen: Wanda offers no new complaints or concerns. She would like to complete her antibiotic treatements at home. She asked if I spoke w/ Dr. Aparicio. I told her that I had not but left a message w/ [facility] transfer center to request oncology consultation. Since I spoke w/ her I have spoken w/ Dr. Gray and reviewed Wanda's case with him. He indicated that they were awaiting biopsies to be done to look at the genetic mutations of her cancer to see if she would be eligible for other treatments. He indicated that if she is septic then they would not want to give treatment. I explained to him she has deep ischial buttock wounds w/ the left tunneling to the bone and has both metastatic bone lesions and osteomyelitis seen on her MRI. He indicated that they would hold off any chemo treatment until her infection has cleared. I explained to him that it is unlikely that her wound will ever heal but the best we can hope for is suppressive antibiotic treatment. He indicated that he will relay information to Dr. Aparicio and they will try to set her up for follow up in couple weeks. Exam Narrative Exam Narrative: Alert and oriented x4 Neck: Supple, nontender, without JVD. Normal carotid pulses Lungs: Clear to auscultation and percussion Heart: Regular rate and rhythm without murmur rub or gallop. Normal apical impulse Abdomen: Nondistended, normal bowel sounds, nontender to palpation or percussion, no organomegaly, no bruits, no palpable masses Extremities: No peripheral cyanosis or edema. Normal pulses I did not examine her decubitus wounds as her wound are nurse had already done her dressings Objective Last Vital Signs Temp 36.4 C L 04/25/22 07:29 Pulse 91 H 04/25/22 07:29 Resp 14 04/25/22 07:29 BP 129/80 04/25/22 07:29 Pulse Ox 98 04/25/22 07:29 Laboratory Results - last 24 hr 04/23/22 09:40 Stool Campylobacter PCR Negative Stool Salmonella PCR Negative Stool Shigella PCR Negative Shiga Toxin (PCR) Negative Time Spent with Patient Time Spent with Patient: 25-34 minutes Time was spent: preparing to see the patient(eg.review tests), ordering medications,tests, procedures, referring, communicating with other health child caregiver, indepentently interpreting results, counseling the patient (I also called the patient's to discuss her plan of care) and care coordination
--- NOTE | 2022-04-25 13:51 | NUR.NOTE ---
[employer] here to deliver a wound vac that was ordered by [facility]. Advised vendor that at this time the wound vac is contraindicated and cannot be used. Vac sent back with the vendor. Spoke with Scarlett Washburn from [facility], PT wound certified. Informed of wound infection, osteomyelitis, mets from mri findings, visible bone and possible tumor in the wound. Agreed that wound vac is contraindicated at this time. Nursing Note:
--- NOTE | 2022-04-25 13:55 | WOUNDCARE ---
Wound Care Report [employer] here to deliver a wound vac that was ordered by [facility]. Advised vendor that at this time the wound vac is contraindicated and cannot be used. Vac sent back with the vendor. Spoke with Scarlett Washburn from [facility], PT wound certified. Informed of wound infection, osteomyelitis, mets from mri findings, visible bone and possible tumor in the wound. Agreed that wound vac is contraindicated at this time. Nursing Note:
--- NOTE | 2022-04-25 15:30 | W.ANESVAS ---
Midline Placement Date Performed: 04/25/22 Procedure Time: 15:08 Requesting Provider: Selvin Pagan Procedure Location: Med/Surg Sedation Given (Indicate Dose Given): No Sedation given Patient Mental Status: Awake Sterility: Hand Hygiene, Surgical Cap, Surgical Mask, Sterile Gloves, Sterile Drape/Sheet and Chlorhexidine Laterality: Left Insertion Site: Basilic Midline Device: PowerGlide Pro 20G Catheter Length: 10 cm Midline Procedure Procedure: 1% Lidocaine to skin and subcutaneous tissue with 25g needle, Vessel accessed with catheter over needle, Guidewire placed with ease, Catheter placed without resistance and Guidewire removed Dressing: Tegaderm Applied and Statlock Applied Blood Return: Present Flushes: Easily Ultrasound: Sterile probe cover and gel used Ultrasound Image Saved?: Yes Number of Attempts (See previous attempts in note section): 1 Procedure Tolerated: No Complications Procedure Outcome: Successful Procedure Comment:: Midline catheter slightly exposed beyond skin. Good flush and denies pain, soft and palpable in upper arm while flushing. Performed By: Jarvis Nelson
[2022-04-25 15:44] VITALS: BP 129/77; PULSE 97; RESP 16; TEMP 37.8; O2SAT 96
[2022-04-25 15:57] LABS: Vancomycin, Trough 18.6 ug/mL (10.0-20.0)
[2022-04-25] MEDS: Normal Saline Flush 10 ML SYR IVP ×2 (16:40→21:40)
[2022-04-25] MEDS: Magnesium Oxide 400 MG TAB PO (21:40)
[2022-04-25 23:00] VITALS: BP 111/72; PULSE 90; RESP 18; TEMP 37.9; O2SAT 94
[2022-04-26 00:01] VITALS: TEMP 37.9
[2022-04-26] MEDS: Acetaminophen 325 MG TAB PO (00:01)
[2022-04-26] MEDS: VANCOMYCIN/WATER (PEG) 750 MG/150 ML BAG 75 MG IV ×2 (04:05→15:40)
[2022-04-26] MEDS: Normal Saline Flush 10 ML SYR IVP ×2 (04:05→15:40)
[2022-04-26] MEDS: ERTAPENEM 1 GM in Normal Saline 50 ML IVPB (06:10)
[2022-04-26 07:17] VITALS: BP 100/65; PULSE 96; RESP 18; TEMP 36.1; O2SAT 93
[2022-04-26] MEDS: Cyanocobalamin 500 MCG TAB 1000 MCG PO (07:40)
[2022-04-26] MEDS: Midodrine 2.5 MG TAB 5 MG PO ×3 (07:40→18:07)
[2022-04-26] MEDS: Pantoprazole 40 MG TABCR PO (07:40)
[2022-04-26] MEDS: Gabapentin 300 MG CAP 600 MG PO ×3 (07:40→21:33)
[2022-04-26] MEDS: Letrozole 2.5 MG TAB PO (07:40)
[2022-04-26] MEDS: Multivitamin TAB 1 TAB PO (07:41)
[2022-04-26] MEDS: Lactobacillus Acidophilus CAP 1 CAP PO ×2 (07:41→21:18)
[2022-04-26] MEDS: Potassium Chloride 20 MEQ TABCR PO ×2 (07:41→21:17)
--- NOTE | 2022-04-26 14:42 | PGE_ITS ---
Date of Service Date of service: 04/26/22 Time of Service: 14:43 Assessment and Plan Assessment and plan (1) Bacteremia: Status: Suspected Assessment and plan: 1 of 2 sets positive for gram postive rods from 04/19 but repeat from 04/20 shows no growth and repeat blood cultures from 04/23 shows no growth. Her wound culture is growing Proteus species that is pansensitive.Urine cultures from 04/17/2022 and 04/19/2022 both show Klebsiella pneumoniae with ESBL sensitive to imipenem. I will ask anesthesia to place midline for longer antibiotic treatment to be given Continued aggressive wound care per wound care nurses. Dr. Mohan is recommending obtaining a wound vacuum however, per my discussion w/ the wound care nurse, given her osteomyelitis and her bone mets to her pelvis at the base of the wound, a wound vaccuum is contraindicated. Dr. Mohan's assistance in her wound care is appreciated. Per Dr. Mohan's notes and from my discussion with her she did not find any pocket of pus when she probed the wound. Once her midline is in place and home infusion antibiotics have been ordered, then we can proceed w/ dc home w/ home health wound care nurse to follow and patient to followup w/ Dr. Aparicio Waiting for infusion company to complete prior auth for home IV abx. Professional time spent interviewing and examining patient, discussion of goals of care with hospital team (care management, nursing and consulting professionals) was 35 minutes. (2) UTI (urinary tract infection): Status: Acute Assessment and plan: as above. Her SPC was changed this admission (3) Osteomyelitis, pelvis: Status: Acute Assessment and plan: see skin ulcer and sepsis for plan of care. Patient will require long-term parenteral antibiotics. Dr Pagan discussed her case w/ Dr. Gray from [facility] oncology and I.D. (4) Decubitus skin ulcer: Status: Acute Assessment and plan: wound debridement per surgery and wound care nursing. case discussed w/ wound care nurse and Dr. Mohan over this past weekend (5) Breast cancer, stage 4: Status: Acute Assessment and plan: non-curable. Palliative care consulted. Patient is considering hospice care (6) Spinal cord compression: Status: Acute Assessment and plan: causing her paraplegia and neurogenic bladder, hence the SPC and decubiti, initial metastatic disease was found in her cervical vertebrae for which she underwent surgery and radiation treatment. This was performed out in [place]. (7) History of DVT of lower extremity: Status: Acute Assessment and plan: currently on Dabigatran (8) Chronic anemia: Status: Chronic Assessment and plan: anemia of chronic disease. Repeat Hb was 8.4 gm yesterday up form a low of 7.2 gm (9) Discharge planning issues: Status: Acute Assessment and plan: patient remains DNR/DNI. patient intends to return home w/ home health providing antibiotic treatment. She has expressed interest in hospice but has been indecisive and defers to her who would like Dr. Aparicio's input (her oncologist from [facility]) Subjective Subjective Patient reports: no new complaints, feels better, tolerating a regular diet, bowel movement and afebrile; denies diarrhea, nausea, vomiting or shortness of breath Interval history since last seen: No complaints, states she is comfortable, at bedside. Exam Narrative Exam Narrative: Alert and oriented x4 Neck: Supple, nontender, without JVD. Normal carotid pulses Lungs: Clear to auscultation and percussion Heart: Regular rate and rhythm without murmur rub or gallop. Normal apical impulse Abdomen: Nondistended, normal bowel sounds, nontender to palpation or percussion, no organomegaly, no bruits, no palpable masses Extremities: No peripheral cyanosis or edema. Normal pulses I did not examine her decubitus wounds - the nurse had already done her dressings, they were clean and dry Objective Last Vital Signs Temp 36.1 C L 04/26/22 07:17 Pulse 96 H 04/26/22 07:17 Resp 18 04/26/22 07:17 BP 100/65 04/26/22 07:17 Pulse Ox 93 04/26/22 07:17 Laboratory Results - last 24 hr 04/25/22 15:15 Vancomycin Trough 18.6 Time Spent with Patient Time Spent with Patient: 25-34 minutes Time was spent: preparing to see the patient(eg.review tests), obtaining and/or reviewing separately otained hiistory, ordering medications,tests, procedures, referring, communicating with other health day care home provider, indepentently interpreting results, counseling the patient and care coordination
[2022-04-26 15:10] LABS: Fructosamine 192 mcmol/L (200 - 285)
--- NOTE | 2022-04-26 16:26 | CHAPLAIN ---
According to Care Management and Palliative Care notes, Wanda has been considering going into hospice care. She and her would like to confer with her oncologist first. She is here having a UTI treated. Wanda and I remembered each from her previous admission. She lives with her and they are working on their home here. Wanda told me about her daughter, son in law, and grandson's visit in February when they stayed two weeks. Another daughter visited at [facility]. Her daughters live in [place], and a third daughter lives in [place]. She said it is expensive for them to travel here, but they will visit again. Wanda is always pleasant, and asks how staff is doing when we visit. Her visit's while she's here, but she's asked family not to call because she had a hard time manipulating her phone with one hand while the other arm has IVs in it. I will continue to visit.
--- NOTE | 2022-04-26 17:51 | CMPROGNOTE_ITS ---
- If Service Date Differs Date of service: 04/26/22 Time of Service: 17:51 Care Management Progress Note S/O: CM met with Wanda and her to discuss options for IV antibiotics, as the recommendation is for her to have a 6 week course. CM sent orders to [facility] and [facility] to provide options for home IV abx. CM also reviewed the option of remaining at [facility] for SWB for the duration of the course, vs returning to the infusion room daily. Hao stated that he prefers that his is home, and is not concerned about the cost. Per [facility] and Laura, the cost is associated with the deductible not being met this year. CM reached out to [facility] to discuss the option of Wanda returning home, as they will provide nursing support and education for home infusions. CM will continue to follow. A: 62 year old female admitted to [facility] 04/20/22 for Bacteremia, UTI P: Anticipate Wanda will discharge home with a resumption of services-with consideration of Hospice to be discussed with her Palliative Provider; Dr. Toro. She will follow up with her PCP and plan of care and transport with her . CM will continue to offer support to Wanda and assess for discharge needs.
[2022-04-26] MEDS: Magnesium Oxide 400 MG TAB PO (21:33)
[2022-04-26 23:44] VITALS: BP 104/66; PULSE 91; RESP 21; TEMP 37.3; O2SAT 97
[2022-04-27] MEDS: VANCOMYCIN/WATER (PEG) 750 MG/150 ML BAG 75 MG IV (04:15)
[2022-04-27] MEDS: Normal Saline Flush 10 ML SYR IVP ×2 (04:23→07:42)
[2022-04-27] MEDS: ERTAPENEM 1 GM in Normal Saline 50 ML IVPB (06:32)
[2022-04-27 07:04] LABS: Abs Immature Grans 0.02 10^3/uL (0.0-0.06); Absolute Basophil Count 0.02 10^3/uL (0.0-0.2); Absolute Eosinophil Count 0.21 10^3/uL (0.0-0.7); Absolute Lymphocyte Count 1.82 10^3/uL (1.2-3.4); Absolute Monocyte Count 0.37 10^3/uL (0.1-0.8); Absolute Neutrophil Count 2.07 10^3/uL (1.2-6.7); Basophils % 0.4; Eosinophils % 4.7; HCT 25.7 % (36.0-46.0); Immature Grans % 0.4; Lymphocytes % 40.4; MCHC 31.1 % (32.0-36.0); MCV 77 fL (80-95); MPV 8.7 fL (8.0-11.0); Monocytes % 8.2; Neutrophils % 45.9; Platelet Count 436 10^3/uL (130-400); RBC 3.34 10^6/uL (3.93-5.22); RDW 16.3 % (11.7-14.6); WBC 4.51 10^3/uL (4.4-10.8)
[2022-04-27 07:26] LABS: Anion Gap 8.2 mmol/L (3-11); BUN 10 mg/dL (7-18); C-Reactive Protein 3.49 mg/dL (0.0-0.3); CO2 26.8 mmol/L (21.0-32.0); CREATININE 0.5 mg/dL (0.55-1.02); Calcium 10.3 mg/dL (8.5-10.1); Chloride 103 mmol/L (98-107); Estimated GFR 105.98 (mL/min/1.73m2); Glucose 93 mg/dL (74-106); Magnesium 2.1 mg/dL (1.8-2.4); Potassium 4.3 mmol/L (3.5-5.1); Sodium 138 mmol/L (136-145)
[2022-04-27] MEDS: Letrozole 2.5 MG TAB PO (07:42)
[2022-04-27] MEDS: Midodrine 2.5 MG TAB 5 MG PO ×2 (07:42→13:52)
[2022-04-27] MEDS: Gabapentin 300 MG CAP 600 MG PO ×2 (07:42→13:53)
[2022-04-27] MEDS: Multivitamin TAB 1 TAB PO (07:43)
[2022-04-27] MEDS: Potassium Chloride 20 MEQ TABCR PO (07:43)
[2022-04-27] MEDS: Pantoprazole 40 MG TABCR PO (07:43)
[2022-04-27] MEDS: Cyanocobalamin 500 MCG TAB 1000 MCG PO (07:43)
[2022-04-27] MEDS: Lactobacillus Acidophilus CAP 1 CAP PO (07:43)
[2022-04-27 08:04] VITALS: BP 108/69; PULSE 101; RESP 17; TEMP 36.5; O2SAT 96
--- NOTE | 2022-04-27 10:03 | W.PM.PROGNOT ---
Date of Service Date of service: 04/27/22 Time of Service: 10:03 Objective Last Vital Signs Temp 36.5 C 04/27/22 08:04 Pulse 101 H 04/27/22 08:04 Resp 17 04/27/22 08:04 BP 108/69 04/27/22 08:04 Pulse Ox 96 04/27/22 08:04 Laboratory Results - last 24 hr 04/25/22 04/27/22 04/27/22 06:03 06:15 06:15 WBC 4.51 RBC 3.34 L Hgb 8.0 L Hct 25.7 L MCV 77 L MCH 24.0 L MCHC 31.1 L RDW 16.3 H Plt Count 436 H MPV 8.7 Immature Gran % 0.4 Neutrophils % 45.9 Lymphocytes % 40.4 Monocytes % 8.2 Eosinophils % 4.7 Basophils % 0.4 Nucleated RBC % 0.0 Absolute Neutrophils 2.07 Absolute Lymphocytes 1.82 Absolute Monocytes 0.37 Absolute Eosinophils 0.21 Absolute Basophils 0.02 Sodium 138 Potassium 4.3 Chloride 103 Carbon Dioxide 26.8 Anion Gap 8.2 BUN 10 Creatinine 0.5 L Est GFR (CKD-EPI 2020) 105.98 Glucose 93 Fructosamine 192 L Calcium 10.3 H Magnesium 2.1 C-Reactive Protein 3.49 H
--- NOTE | 2022-04-27 13:21 | CMDISCH_ITS ---
- If Service Date Differs Date of service: 04/27/22 Time of Service: 13:21 LACE Index Scoring Tool - Questions: Length of Stay (in days): 7 - 13 Acuity (Admit via E.D.?): Yes Comorbidities: Metastatic Solid Tumor E.D. Visits: 4 - Answers: Total Score: 17 Risk of Readmission: High Risk Care Management Discharge Reason for Hospitalization: Sepsis Discharge Plan: Wanda will return home today with a resumption of RN, PT and OT. She will have new orders for home IV infusion through [facility], which CM coordinated. Her will be assisting her with this service at home, as her primary caregiver. Her antibiotics will be delivered this evening, and she will begin her at home infusions tomorrow morning. Hao will drive Wanda home in her own w/c and their w/c van. She will follow up with her PCP and discharge plan of care. She is happy to be going home. Patient/Family Education Needs: Review discharge instructions and limitations, discussion of self care needs including ask me three.
--- NOTE | 2022-04-27 13:25 | DSE_ITS ---
Date of service: 04/27/22 Time of Service: 14:00 DS: Diagnosis Discharge Diagnosis (1) Bacteremia: Status: Suspected (2) UTI (urinary tract infection): Status: Acute (3) Osteomyelitis, pelvis: Status: Acute (4) Decubitus skin ulcer: Status: Acute (5) Breast cancer, stage 4: Status: Acute (6) Spinal cord compression: Status: Acute (7) History of DVT of lower extremity: Status: Acute (8) Chronic anemia: Status: Chronic (9) Discharge planning issues: Status: Acute Discharge Plan Disposition Patient Disposition: Home W/Home Health Services Condition: Fair Discharge Details Reason For Visit: Bacteremia,UTI Admit Date/Time: 04/20/22 21:29 Admit Provider: Brad Mistry Attending Provider: Brad Mistry Primary Care Provider: Eriberto Zimmerman [facility] Course Hospital Course: [facility] 62 [facility] with [facility]ia secondary to metastatic breast cancer to spine, suprapubic catheter, h/o DVT on Pradaxa, and chronic deep left ischial decubitus ulcer who was called this evening with positive blood culture drawn during an ED visit from 04/19/22.? She first started feeling sick on Sunday 04/16 when she felt a little feverish. Sunday04/17/22 her noted some intermittent confusion.? Home health came and took a urine culture and changed her catheter.? She continued to have intermittent symptoms and her culture returned klebsiella.? She was seen in the emergency room and given a dose of IV piperacillin/tazobactam.? Admission was considered but at that time she had no elevation of WBC and she appeared non-toxic so the decision was made to treat with fosfomycin orally and discharge home.?The blood culture drawn 04/19/22 returned with gram positives and patient was called to return. She returned and reported having cold/chills, but states she doesn't feel hot.? Her mouth was dry.? She denied pain.? She has been eating.?She has been getting wound care for the chronic wound on left hip by Home Health.? Wound vac was not recommended as there is not enough tissue and the vacuum would be on the bone. She was diagnosed with osteomyelitis, UTI, infected wound and bacteremia. Wound care was consulted and her wounds are being cared for per their recommendations. This is for comfort and hopefully will stall progression, this is not going to heal. She will receive IV antibiotics for 6 weeks on hospital discharge for bacteremia. She was seen by Palliative Care while hospitalized. She was also seen by surgery, there were no interventions or procedures. She improved and is being discharged to home stable with her , with orders for ertapenem 1 gram daily for a total of 6 weeks -last day will be 06/01/22 - and weekly labs, with resumption of home jaclyn nursing, PT, OT and PHOTOGRAPHER STILL Discussed with Dr Pagan Arma Meds and New Rx's Prescriptions: New ertapenem 1 gram Recon Soln 1 g IVPB Q24H Qty: 0 0RF Lactobacillus acidophilus 500 million cell Capsule 1 cap PO BID Qty: 0 0RF silver sulfadiazine [SSD] 1 % Cream 1 applic topical BID Qty: 50 0RF Continued baclofen 10 mg tablet 0.5 tab PO Q8H PRN Label Comments: Take half a tablet by mouth every 8 hours pantoprazole 40 mg Tablet,Delayed Release (Dr/Ec) 40 mg PO DAILY gabapentin 300 mg capsule 2 cap PO Q8H Label Comments: Take 2 capsules by mouth every 8 hours letrozole 2.5 mg tablet 1 tab PO DAILY Label Comments: 1 tablet daily midodrine 5 mg tablet 5 mg PO TID Qty: 10 0RF Rx Instructions: do not give last dose of day after 6PM or within 4 hrs of bedtime dabigatran etexilate [Pradaxa] 150 mg Capsule 150 mg PO BID fluticasone propionate [Flonase Allergy Relief] 50 mcg/actuation spray,suspens ion 2 spray INTRANASAL DAILY Label Comments: 2 sprays in each nostril daily Santyl 250 unit/gram Ointment 7,500 unit topical DAILY Qty: 0 0RF cyanocobalamin (vitamin B-12) [Vitamin B-12] 500 mcg Tablet 1,000 mcg PO DAILY Qty: 0 0RF magnesium oxide 400 mg (241.3 mg magnesium) Tablet 400 mg PO HS Qty: 0 0RF multivitamin [Multiple Vitamins] Tablet 1 tab PO DAILY Qty: 0 0RF potassium chloride [Klor-Con M20] 20 mEq Tablet,Er Particles/Crystals 20 meq PO BID Qty: 30 0RF dabigatran etexilate 150 mg capsule PO Label Comments: TAKE ONE CAPSULE BY MOUTH TWICE A DAY Discharge Instructions Instructions: Ertapenem (By injection), Osteomyelitis (DC) Additional Instructions: Continue/Resume Home Health nursing PT OT PHOTOGRAPHER STILL See [facility] orders for labs/care of midline Ertapenem 1 gm daily - start 04/28/2022; stop 06/01/2022 - anytime that is convenient the first day and then daily within 2 hours of that time Wound care: * Clean wound with anasept spray (or equivalent). Allow to dwell for 2 minutes * Pat dry with clean gauze * Apply Silvadene cream to 4x4 x 2 - unfold 4x4 to form fluff and saturate with Silvadene to form impregnated dressing * Pack the wound with 4x4s paying attention to the undermined areas from 9 O'clock to 12 O'clock * Cover with Mepilex with boarder (or equivalent) * Change daily and PRN May teach animal care giver wound care and IV maintenance skills. Turn patient at least every 2 hours. Use pillows under knees to keep heels off of the bed. Use a pillow behind back and buttock when side lying. Have pillows under her arms to keep arms elevated off the bed. Pillow between her knees and ankles. Keep head of bed in low position other than at meal times to help decrease pressure on her pelvis. Stand Alone Forms: Nursing Discharge Form Referrals: Eriberto Zimmerman MD [Primary Care Provider] - 05/15/22 10:00 am Activity:: Activity as Tolerated Equipment/Supplies:: No Equipment Needed Diet:: As Tolerated Discharge Orders Discharge Orders: Discharge Order (Routine); Ordered 04/27/22 Ordered By: Jovanna Oliver Discharge Data Discharge Date/Time-TO BE ENTERED AT DEPARTURE: 04/27/22 14:26 DS: Summary Time Spent with Patient providing and/or coordinating discharge services: Greater than 30 minutes Status at Discharge Functional status at discharge: bed bound Overall status at discharge: patient is back to baseline Mental Status: mental status grossly normal Speech and Movement: speech and movement normal Mood: congruent mood Affect: normal affect Exam Narrative Exam Narrative: Alert and oriented x4 Neck: Supple, nontender, without JVD. Normal carotid pulses Lungs: Clear to auscultation and percussion Heart: Regular rate and rhythm without murmur rub or gallop. Normal apical impulse Abdomen: Nondistended, normal bowel sounds, nontender to palpation or percussion, no organomegaly, no bruits, no palpable masses Extremities: No peripheral cyanosis or edema. Normal pulses I did not examine her decubitus wounds - the nurse had already done her dressings, they were clean and dry Psych Mental Status: mental status grossly normal Speech and Movement: speech and movement normal Mood: congruent mood Affect: normal affect DS: Data Vitals/I&O Vitals and I&O: Vital Signs Temperature 36.5 C 04/27/22 08:04 Temperature Source Tympanic 04/27/22 08:04 Pulse 101 H 04/27/22 08:04 Pulse Rhythm Regular 04/27/22 07:45 Respiratory Rate 17 04/27/22 08:04 Respiratory Effort Non-Labored 04/27/22 07:45 Respiratory Depth Normal 04/27/22 07:45 Respiratory Pattern Normal 04/27/22 07:45 Blood Pressure 108/69 04/27/22 08:04 Blood Pressure Position Supine 04/20/22 21:24 Pulse Oximetry 96 04/27/22 08:04 Oxygen Delivery Method Room Air 04/27/22 08:04 Oxygen Flow Rate 0 04/27/22 08:04 Pain Level 0 04/27/22 08:04 Comment 04/22/22 18:19 Intake & Output 04/26/22 04/27/22 04/27/22 23:59 11:59 23:59 Intake Total 380 / 710 50 / 200 150 / 200 Output Total 2125 / 3375 2075 / 2525 450 / 2525 Balance -1745 / -2665 -2025 / -2325 -300 / -2325 Weight 59.7 kg Intake: IV 200 / 350 50 / 200 150 / 200 Oral 180 / 360 Output: Urine 2125 / 3375 2075 / 2525 450 / 2525 Other: Urine Color Pale Pale Yellow Yellow Urine Appearance Clear Clear Clear Stool Size Large Stool Characteristics Soft Brown Data Completed and Pending Labs on day of discharge: Labs from last 24 hours 04/27/22 04/27/22 04/25/22 06:15 06:15 06:03 WBC 4.51 RBC 3.34 L Hgb 8.0 L Hct 25.7 L MCV 77 L MCH 24.0 L MCHC 31.1 L RDW 16.3 H Plt Count 436 H MPV 8.7 Immature Gran % 0.4 Neutrophils % 45.9 Lymphocytes % 40.4 Monocytes % 8.2 Eosinophils % 4.7 Basophils % 0.4 Nucleated RBC % 0.0 Absolute Neutrophils 2.07 Absolute Lymphocytes 1.82 Absolute Monocytes 0.37 Absolute Eosinophils 0.21 Absolute Basophils 0.02 Sodium 138 Potassium 4.3 Chloride 103 Carbon Dioxide 26.8 Anion Gap 8.2 BUN 10 Creatinine 0.5 L Est GFR (CKD-EPI 2020) 105.98 Glucose 93 Fructosamine 192 L Calcium 10.3 H Magnesium 2.1 C-Reactive Protein 3.49 H Preliminary micro results at discharge 04/23/22 09:10 Blood Culture - Preliminary Blood NO GROWTH 96 HOURS 04/23/22 12:47 Blood Culture - Preliminary Blood NO GROWTH 72 HOURS PFSH All Active Problems (Updated 04/25/22 @ 07:27 by Isela Toro MD, DC) Palliative care patient (Acute) Osteomyelitis, pelvis (Acute) Breast cancer, stage 4 (Acute) Discharge planning issues (Acute) Suprapubic catheter (Acute) History of DVT of lower extremity (Acute) UTI (urinary tract infection) (Acute) UTI (urinary tract infection) (Acute) Ambulatory dysfunction (Acute) Chronic anemia (Chronic) Decubitus skin ulcer (Acute) Recurrent breast cancer (Acute) Hx of mastectomy (Chronic) Spinal cord compression (Acute) Presence of inferior vena cava filter (Acute) Prediabetes (Acute) Fatty liver (Acute) Medical History (Updated 04/25/22 @ 07:27 by Isela Toro MD, DC) GERD (gastroesophageal reflux disease) Hyperlipidemia Hypotension Metastatic breast cancer Neurogenic bladder Non-insulin dependent diabetes mellitus Normocytic normochromic anemia Paraplegia Surgical History H/O bilateral mastectomy Hx of appendectomy S/P cervical spinal fusion S/P IVC filter Family History Brother Hypertension Mother Breast cancer Other Heart disease Social History (Updated 04/21/22 @ 00:04 by Brad Mistry) Smoking/Tobacco Use Status: Never Smoking risk assessment performed?: Yes Alcohol Intake: never Drug use: Never Substance use type: does not use Current gender identity: female Do you feel safe at home: Yes Do you feel safe in your relationship?: Yes Additional Social history: unable to assess privately. Lives with Hao in [place]. 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 Time Spent with Patient Time Spent with Patient: 45-69 minutes Time was spent: preparing to see the patient(eg.review tests), obtaining and/or reviewing separately otained hiistory, ordering medications,tests, procedures, referring, communicating with other health wild animal caretaker, indepentently interpreting results, counseling the patient and care coordination
== END 2022-04-27 14:26 | disposition home health service (06) | DRG 593 ==
LOC: ER 22:35 → MS 22:37
PROVIDERS: Internal Medicine; Nurse Practitioner Family; Admitting Provider Family Medicine; Emergency Provider Student in an Organized Health Care Education/Training Program; PCP Family Medicine; Visit Provider Family Medicine
DX: L89.224 Pressure ulcer of left hip, stage 4 (principal); C79.51 Secondary malignant neoplasm of bone; N39.0 Urinary tract infection, site not specified; G82.20 Paraplegia, unspecified; E87.1 Hypo-osmolality and hyponatremia; M86.18 Other acute osteomyelitis, other site; L02.31 Cutaneous abscess of buttock; Z16.12 Extended spectrum beta lactamase (ESBL) resistance; G95.29 Other cord compression; M60.004 Infective myositis, unspecified left leg; R78.81 Bacteremia; Z86.718 Personal history of other venous thrombosis and embolism; Z98.1 Arthrodesis status; Z79.01 Long term (current) use of anticoagulants; E78.00 Pure hypercholesterolemia, unspecified; Z93.51 Cutaneous-vesicostomy status; Z85.3 Personal history of malignant neoplasm of breast; B96.1 Klebsiella pneumoniae [K. pneumoniae] as the cause of diseases classified elsewhere; Z95.828 Presence of other vascular implants and grafts; Z90.13 Acquired absence of bilateral breasts and nipples; R26.9 Unspecified abnormalities of gait and mobility; K76.0 Fatty (change of) liver, not elsewhere classified; K21.9 Gastro-esophageal reflux disease without esophagitis; N31.9 Neuromuscular dysfunction of bladder, unspecified; E86.1 Hypovolemia; D63.8 Anemia in other chronic diseases classified elsewhere; Z66 Do not resuscitate; R73.03 Prediabetes; B96.4 Proteus (mirabilis) (morganii) as the cause of diseases classified elsewhere
CPT/HCPCS: 36415; 72197; 76942; 80048; 80053; 84145; 86850; 86900; 86901; 87040; 87077; 87081; 87493; 87505; 87635; 87637; 96365; 99285; 71045; 80202; 81003; 81015; 82985; 83036; 83605; 83735; 85025; 86140; 87070; 87086; 87186; 87205; 99232; 99233; 99239; J0131; J1335; J2543; J3490

== ENCOUNTER 2022-05-03 14:59 | Outpatient (REF) | payer BC, SELFPAY ==
[2022-05-03 16:00] LABS: Abs Immature Grans 0.04 10^3/uL (0.0-0.06); Absolute Basophil Count 0.03 10^3/uL (0.0-0.2); Absolute Eosinophil Count 0.19 10^3/uL (0.0-0.7); Absolute Lymphocyte Count 1.83 10^3/uL (1.2-3.4); Absolute Neutrophil Count 2.84 10^3/uL (1.2-6.7); Basophils % 0.6; Eosinophils % 3.5; HCT 27.6 % (36.0-46.0); HGB 8.3 g/dL (11.2-15.7); Immature Grans % 0.7; Lymphocytes % 33.7; MCH 23.4 pg (27.0-33.0); MCHC 30.1 % (32.0-36.0); MCV 78 fL (80-95); MPV 9.4 fL (8.0-11.0); Monocytes % 9.2; Neutrophils % 52.3; Platelet Count 414 10^3/uL (130-400); RBC 3.54 10^6/uL (3.93-5.22); RDW 16.9 % (11.7-14.6); RDW-SD 47.9 fL; WBC 5.43 10^3/uL (4.4-10.8)
[2022-05-03 16:23] LABS: ALT 24 U/L (14-59); AST 51 U/L (15-37); Albumin 3.1 g/dL (3.4-5.0); Alkaline Phosphatase 152 U/L (46-116); Anion Gap 9.7 mmol/L (3-11); BUN 10 mg/dL (7-18); Bilirubin, Total 0.2 mg/dL (0.2-1.0); CO2 27.3 mmol/L (21.0-32.0); CREATININE 0.6 mg/dL (0.55-1.02); Calcium 10.1 mg/dL (8.5-10.1); Chloride 100 mmol/L (98-107); Estimated GFR 101.42 (mL/min/1.73m2); Glucose 102 mg/dL (74-106); Potassium 4.4 mmol/L (3.5-5.1); Sodium 137 mmol/L (136-145); Total Protein 7.4 g/dL (6.4-8.2)
[2022-05-03 18:12] LABS: C-Reactive Protein 5.46 mg/dL (0.0-0.3)
[2022-05-04 15:48] LABS: Iron 27 ug/dL (50-170); Total Iron Binding Capacity 251 ug/dL (250-450); Transferrin Sat 11 % (15-50)
[2022-05-05 07:50] LABS: Ferritin 493 ng/mL (10-291)
== END 2022-05-03 15:00 | disposition home or self-care (01) ==
LOC: LBN 14:59
PROVIDERS: PCP Family Medicine; Visit Provider Family Medicine
DX: N39.0 Urinary tract infection, site not specified (principal); E87.1 Hypo-osmolality and hyponatremia; E78.00 Pure hypercholesterolemia, unspecified; D64.9 Anemia, unspecified; Z85.830 Personal history of malignant neoplasm of bone
CPT/HCPCS: 80053; 82728; 83540; 83550; 85025; 86140

== ENCOUNTER 2022-05-10 14:00 | Outpatient (REF) | payer BC, SELFPAY ==
[2022-05-10 15:20] LABS: Abs Immature Grans 0.03 10^3/uL (0.0-0.06); Absolute Basophil Count 0.03 10^3/uL (0.0-0.2); Absolute Eosinophil Count 0.23 10^3/uL (0.0-0.7); Absolute Lymphocyte Count 1.81 10^3/uL (1.2-3.4); Absolute Monocyte Count 0.38 10^3/uL (0.1-0.8); Absolute Neutrophil Count 1.71 10^3/uL (1.2-6.7); Basophils % 0.7; Eosinophils % 5.5; HCT 26.7 % (36.0-46.0); HGB 8.1 g/dL (11.2-15.7); Immature Grans % 0.7; Lymphocytes % 43.2; MCH 23.4 pg (27.0-33.0); MCHC 30.3 % (32.0-36.0); MCV 77 fL (80-95); MPV 9.9 fL (8.0-11.0); Monocytes % 9.1; Neutrophils % 40.8; Platelet Count 398 10^3/uL (130-400); RBC 3.46 10^6/uL (3.93-5.22); RDW 17.1 % (11.7-14.6); RDW-SD 47.5 fL; WBC 4.19 10^3/uL (4.4-10.8)
[2022-05-10 15:42] LABS: ALT 19 U/L (14-59); AST 38 U/L (15-37); Albumin 2.8 g/dL (3.4-5.0); Alkaline Phosphatase 174 U/L (46-116); Anion Gap 9.1 mmol/L (3-11); BUN 9 mg/dL (7-18); Bilirubin, Total 0.2 mg/dL (0.2-1.0); C-Reactive Protein 4.75 mg/dL (0.0-0.3); CO2 26.9 mmol/L (21.0-32.0); CREATININE 0.7 mg/dL (0.55-1.02); Calcium 9.6 mg/dL (8.5-10.1); Chloride 105 mmol/L (98-107); Estimated GFR 97.72 (mL/min/1.73m2); Glucose 101 mg/dL (74-106); Potassium 4.3 mmol/L (3.5-5.1); Sodium 141 mmol/L (136-145)
== END 2022-05-10 14:01 | disposition home or self-care (01) ==
LOC: NCHCN 14:00
PROVIDERS: PCP Family Medicine; Visit Provider Family Medicine
DX: N39.0 Urinary tract infection, site not specified (principal)
CPT/HCPCS: 80053; 85025; 86140

== ENCOUNTER 2022-05-17 15:05 | Outpatient (REF) | payer BC, SELFPAY ==
[2022-05-17 15:28] LABS: Abs Immature Grans 0.05 10^3/uL (0.0-0.06); Absolute Basophil Count 0.02 10^3/uL (0.0-0.2); Absolute Eosinophil Count 0.21 10^3/uL (0.0-0.7); Absolute Lymphocyte Count 2.23 10^3/uL (1.2-3.4); Absolute Neutrophil Count 2.57 10^3/uL (1.2-6.7); Basophils % 0.4; Eosinophils % 3.8; HGB 8.7 g/dL (11.2-15.7); Immature Grans % 0.9; MCH 23.6 pg (27.0-33.0); MCV 79 fL (80-95); MPV 9.3 fL (8.0-11.0); Neutrophils % 45.9; Platelet Count 417 10^3/uL (130-400); RBC 3.69 10^6/uL (3.93-5.22); RDW 18.5 % (11.7-14.6); RDW-SD 51.9 fL; WBC 5.58 10^3/uL (4.4-10.8)
[2022-05-17 15:38] LABS: ALT 22 U/L (14-59); AST 50 U/L (15-37); Albumin 2.8 g/dL (3.4-5.0); Alkaline Phosphatase 204 U/L (46-116); Anion Gap 8.7 mmol/L (3-11); BUN 16 mg/dL (7-18); Bilirubin, Total 0.2 mg/dL (0.2-1.0); C-Reactive Protein 4.52 mg/dL (0.0-0.3); CO2 27.3 mmol/L (21.0-32.0); CREATININE 0.9 mg/dL (0.55-1.02); Calcium 9.9 mg/dL (8.5-10.1); Chloride 103 mmol/L (98-107); Estimated GFR 72.28 (mL/min/1.73m2); Glucose 127 mg/dL (74-106); Sodium 139 mmol/L (136-145); Total Protein 6.9 g/dL (6.4-8.2)
== END 2022-05-17 15:06 | disposition home or self-care (01) ==
LOC: LBN 15:05
PROVIDERS: PCP Family Medicine; Visit Provider Family Medicine
DX: N39.0 Urinary tract infection, site not specified (principal)
CPT/HCPCS: 80053; 85025; 86140

== ENCOUNTER 2022-05-18 11:53 | Emergency (ER) | payer BC, SELFPAY ==
[2022-05-18 12:03] VITALS: BP 115/77; PULSE 104; RESP 20; TEMP 37.3; O2SAT 95
--- NOTE | 2022-05-18 12:15 | DI.US_ITS ---
Exam(s) US UPPER EXTREMITY VENOUS LT EXAM: US UPPER EXTREMITY VENOUS LT CLINICAL HISTORY: swelling to arm with midline in place TECHNIQUE: GRAYSCALE, COLOR, DOPPLER IMAGING OF THE VENOUS SYSTEM OF THE UPPER EXTREMITY-BILATERAL COMPARISON: CR XR PORTABLE CHEST AP from 12/15/2021 CR,XR XR PORTABLE CHEST AP from 04/20/2022 FINDINGS: Basilic vein: Patent. Normal color-flow and normal compression and augmentation properties. Brachial vein(s):Patent. Normal color flow. Normal compression and augmentation properties. Cephalic vein:Not seen Axillary vein: Patent. Normal color flow. Normal compression and augmentation properties. Visualized subclavian vein: Patent. No obvious intraluminal thrombus. IMPRESSION: 1. No evidence of venous thrombosis in the left upper extremity. Called by myself to ER provider. DATA REPOSITORY:
--- NOTE | 2022-05-18 13:40 | W.ED.GENAD ---
Discharge Plan Disposition Patient Disposition: Home Discharge Details Clinical Impression: Bacteremia, Difficult intravenous access Primary Care Provider: Eriberto Zimmerman ED Provider: Annetta Cannon Home Meds and New Rx's Prescriptions: Continued baclofen 10 mg tablet 0.5 tab PO Q8H PRN Patient Comments: Take half a tablet by mouth every 8 hours pantoprazole 40 mg Tablet,Delayed Release (Dr/Ec) 40 mg PO DAILY gabapentin 300 mg capsule 2 cap PO Q8H Patient Comments: Take 2 capsules by mouth every 8 hours letrozole 2.5 mg tablet 1 tab PO DAILY Patient Comments: 1 tablet daily midodrine 5 mg tablet 5 mg PO TID Qty: 10 0RF Rx Instructions: do not give last dose of day after 6PM or within 4 hrs of bedtime dabigatran etexilate [Pradaxa] 150 mg Capsule 150 mg PO BID fluticasone propionate [Flonase Allergy Relief] 50 mcg/actuation spray,suspension 2 spray INTRANASAL DAILY Patient Comments: 2 sprays in each nostril daily Santyl 250 unit/gram Ointment 7,500 unit topical DAILY Qty: 0 0RF cyanocobalamin (vitamin B-12) [Vitamin B-12] 500 mcg Tablet 1,000 mcg PO DAILY Qty: 0 0RF magnesium oxide 400 mg (241.3 mg magnesium) Tablet 400 mg PO HS Qty: 0 0RF multivitamin [Multiple Vitamins] Tablet 1 tab PO DAILY Qty: 0 0RF potassium chloride [Klor-Con M20] 20 mEq Tablet,Er Particles/Crystals 20 meq PO BID Qty: 30 0RF ertapenem 1 gram Recon Soln 1 g IVPB Q24H Qty: 0 0RF Lactobacillus acidophilus 500 million cell Capsule 1 cap PO BID Qty: 0 0RF silver sulfadiazine [SSD] 1 % Cream 1 applic topical BID Qty: 50 0RF Discharge Instructions Additional Instructions: You will need your next dose of ertapenem tomorrow, you will receive this intermittently, pharmacy should deliver the medication by 12 Visiting nurse should be arriving in the afternoon to give your IM injection Please return earlier should you have new or worsening complaints Referrals: Eriberto Zimmerman MD [Primary Care Provider] - Discharge Data Discharge Date/Time-TO BE ENTERED AT DEPARTURE: 05/18/22 16:02 Medical Decision Making This 62-year-old female with multiple comorbidities presents secondary to malfunctioning midline, Syed Fierro anesthesiology presented to the emergency department in attempt to replace the midline, however unfortunately this was unsuccessful and family and patient are unwilling to try right-sided access so they prefer IM injections of ertapenem at this time secondary to bacteremia and urinary tract infection, family is comfortable and patient endorses comfort with this plan, home health was consulted, spoke with Tamra, home health provider and patient will start receiving IM injections tomorrow, she received her dose of ertapenem today She is nontoxic at this time I spoke with the pharmacist where she receives her medications and they will deliver the ertapenem tomorrow by 12 Home health will inject ertapenem tomorrow afternoon per Tamra, and instruct on injections intramuscularly, he feels comfortable with this plan She is encouraged to return immediately should she have new or worsening complaints and is discharged home at this time in stable condition HPI General Date/Time Provider Initiated Documentation: 05/18/22 11:53. HPI Narrative: This complex 62-year-old female with history of osteomyelitis, breast cancer, bacteremia, urinary tract infection, receiving daily antibiotics, 1 g of ertapenem for urinary tract infection presents with report of difficulty with midline. After receiving her ertapenem this morning, they are having difficulty flushing her line and there is firmness and swelling to the upper arm reportedly. Patient denies any pain complaints but does describe itching. She denies any chest pain or shortness of breath. She denies any additional complaints at this time. Related Data Home Medications Medication Instructions Recorded Confirmed baclofen 10 mg tablet 0.5 tab PO Q8H PRN 12/14/21 05/08/22 gabapentin 300 mg capsule 2 cap PO Q8H 12/14/21 05/08/22 letrozole 2.5 mg tablet 1 tab PO DAILY 12/14/21 05/08/22 midodrine 5 mg tablet 5 mg PO TID #10 tabs 12/14/21 05/08/22 pantoprazole 40 mg tablet,delayed 40 mg PO DAILY 12/14/21 05/08/22 release dabigatran etexilate 150 mg 150 mg PO BID 12/16/21 05/08/22 capsule (Pradaxa) fluticasone propionate 50 2 spray intranasal DAILY 12/21/21 05/08/22 mcg/actuation nasal spray,suspension (Flonase Allergy Relief) collagenase clostridium histo. 250 7,500 unit topical DAILY #0 grams 12/30/21 05/08/22 unit/gram topical ointment (Santyl) cyanocobalamin (vitamin B-12) 500 1,000 mcg PO DAILY #0 tabs 12/30/21 05/08/22 mcg tablet (Vitamin B-12) magnesium oxide 400 mg (241.3 mg 400 mg PO HS #0 tabs 12/30/21 05/08/22 magnesium) tablet multivitamin (Multiple Vitamins 1 tab PO DAILY #0 tabs 12/30/21 05/08/22 tablet) potassium chloride 20 mEq 20 meq PO BID #30 tabs 12/30/21 05/08/22 tablet,extended release(part/cryst) (Klor-Con M) Lactobacillus acidophilus 500 1 cap PO BID #0 caps 04/27/22 05/08/22 million cell capsule ertapenem 1 gram solution for 1 g IVPB Q24H #0 ea 04/27/22 05/08/22 injection silver sulfadiazine 1 % topical 1 applic topical BID #50 grams 04/27/22 05/08/22 cream (SSD) Previous Rx's Medication Instructions Recorded midodrine 5 mg tablet 5 mg PO TID #10 tabs 12/14/21 collagenase clostridium histo. 250 7,500 unit topical DAILY #0 grams 12/30/21 unit/gram topical ointment (Santyl) cyanocobalamin (vitamin B-12) 500 1,000 mcg PO DAILY #0 tabs 12/30/21 mcg tablet (Vitamin B-12) magnesium oxide 400 mg (241.3 mg 400 mg PO HS #0 tabs 12/30/21 magnesium) tablet multivitamin (Multiple Vitamins 1 tab PO DAILY #0 tabs 12/30/21 tablet) potassium chloride 20 mEq 20 meq PO BID #30 tabs 12/30/21 tablet,extended release(part/cryst) (Klor-Con M) Lactobacillus acidophilus 500 1 cap PO BID #0 caps 04/27/22 million cell capsule ertapenem 1 gram solution for 1 g IVPB Q24H #0 ea 04/27/22 injection silver sulfadiazine 1 % topical 1 applic topical BID #50 grams 04/27/22 cream (SSD) Allergies Allergy/AdvReac Type Severity Reaction Status Date / Time No Known Allergies Allergy Verified 05/08/22 13:51 General Stated Complaint: [facility] EMILY: 3 PFSH All Active Problems (Updated 05/20/22 @ 00:00 by GANESH US) Bacteremia (Acute) Difficult intravenous access (Acute) Contracture, right hand (Acute) Osteomyelitis, pelvis (Acute) Breast cancer, stage 4 (Acute) History of DVT of lower extremity (Acute) UTI (urinary tract infection) (Acute) Ambulatory dysfunction (Acute) Chronic anemia (Chronic) Decubitus skin ulcer (Acute) Hx of mastectomy (Chronic) Spinal cord compression (Acute) Presence of inferior vena cava filter (Acute) Prediabetes (Acute) Fatty liver (Acute) Medical History GERD (gastroesophageal reflux disease) Hyperlipidemia Hypotension Metastatic breast cancer Neurogenic bladder Non-insulin dependent diabetes mellitus Normocytic normochromic anemia Paraplegia Suprapubic catheter Surgical History H/O bilateral mastectomy Hx of appendectomy S/P cervical spinal fusion S/P IVC filter Family History Brother Hypertension Mother Breast cancer Other Heart disease Social History Smoking/Tobacco Use Status: Never Smoking risk assessment performed?: Yes Alcohol Intake: never Drug use: Never Substance use type: does not use Current gender identity: female Do you feel safe at home: Yes Do you feel safe in your relationship?: Yes Additional Social history: unable to assess privately. Lives with Hao in [place]. 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 Exam Const General: cooperative and frail appearing Orientation: alert and oriented x3 Resp Effort & Inspection: normal respiratory effort Cardio Rate: regular rate Rhythm: regular rhythm Neuro General: patient alert and patient oriented x3 Course Vital Signs Vital signs: Vital Signs Temperature 37.3 C 05/18/22 12:03 Pulse 104 H 05/18/22 12:03 Respiratory Rate 20 05/18/22 12:03 Blood Pressure 115/77 05/18/22 12:03 Pulse Oximetry 95 05/18/22 12:03 Temperature 37.3 C 05/18/22 12:03 Temperature Source Temporal Artery Scan 05/18/22 12:03 Pulse 104 H 05/18/22 12:03 Respiratory Rate 20 05/18/22 12:03 Blood Pressure 115/77 05/18/22 12:03 Blood Pressure Position Sitting 05/18/22 12:03 Pulse Oximetry 95 05/18/22 12:03 Oxygen Delivery Method Room Air 05/18/22 12:03 Oxygen Flow Rate 0 05/18/22 12:03 Pain Level 1 05/18/22 12:03
[2022-05-18 15:05] VITALS: BP 101/70; PULSE 99; RESP 19; TEMP 37.7; O2SAT 92
--- NOTE | 2022-05-18 16:00 | NUR.NOTE ---
Nursing Note: Faxed to [facility] the face to face, demographics and provider note. Face to face sent to Medical Records.
--- NOTE | 2022-05-18 21:00 | PDOC.ANES ---
Date of service: 05/18/22 Time of Service: 13:30 Anesthesia Note Report Anesthesia Note: I was asked to evaluate existing midline in this patient. This line has been used for the last 2 weeks of a 6 week antibiotic therapy. Her stated when she received the antibiotic today, he noticed some arm swelling and leaking from the IV. I flushed line and noted leaking. Dressing was taken down and leak while flushing is noted around the catheter itself and not a loose connection. Given the earlier report and current exam, midline was removed. Very limited choice for additional midline placement on left extremity. Attempted placement X1 in basilic vein without success with 20g Bard Powerglide Pro. Pt. refuses access on right arm due to lymph node removal in 2019. Discussed with ED provider as no suitable IV access available for ocntinued IV antibiotics.
== END 2022-05-18 16:02 | disposition home or self-care (01) ==
PROVIDERS: Emergency Provider Physician Assistant; PCP Family Medicine
DX: T82.534A Leakage of infusion catheter, initial encounter (principal); R78.81 Bacteremia
CPT/HCPCS: 99284; 93971

== ENCOUNTER 2022-05-24 16:45 | Outpatient (REF) | payer BC, SELFPAY ==
[2022-05-24 17:45] LABS: Abs Immature Grans 0.02 10^3/uL (0.0-0.06); Absolute Basophil Count 0.03 10^3/uL (0.0-0.2); Absolute Eosinophil Count 0.25 10^3/uL (0.0-0.7); Absolute Lymphocyte Count 1.65 10^3/uL (1.2-3.4); Absolute Monocyte Count 0.35 10^3/uL (0.1-0.8); Absolute Neutrophil Count 1.83 10^3/uL (1.2-6.7); Basophils % 0.7; Eosinophils % 6.1; HGB 8.4 g/dL (11.2-15.7); Immature Grans % 0.5; MCH 23.6 pg (27.0-33.0); MCV 79 fL (80-95); MPV 9.6 fL (8.0-11.0); Monocytes % 8.5; Neutrophils % 44.2; Platelet Count 327 10^3/uL (130-400); RBC 3.56 10^6/uL (3.93-5.22); RDW 18.7 % (11.7-14.6); RDW-SD 52.9 fL; WBC 4.13 10^3/uL (4.4-10.8)
[2022-05-24 17:57] LABS: ALT 23 U/L (14-59); AST 64 U/L (15-37); Albumin 2.7 g/dL (3.4-5.0); Alkaline Phosphatase 235 U/L (46-116); Anion Gap 7.9 mmol/L (3-11); BUN 8 mg/dL (7-18); Bilirubin, Total 0.2 mg/dL (0.2-1.0); C-Reactive Protein 4.61 mg/dL (0.0-0.3); CO2 29.1 mmol/L (21.0-32.0); CREATININE 0.8 mg/dL (0.55-1.02); Calcium 9.7 mg/dL (8.5-10.1); Chloride 103 mmol/L (98-107); Estimated GFR 83.26 (mL/min/1.73m2); Glucose 101 mg/dL (74-106); Potassium 4.4 mmol/L (3.5-5.1); Sodium 140 mmol/L (136-145); Total Protein 6.9 g/dL (6.4-8.2)
== END 2022-05-24 16:46 | disposition home or self-care (01) ==
LOC: LBN 16:45
PROVIDERS: PCP Family Medicine; Visit Provider Family Medicine
DX: N39.0 Urinary tract infection, site not specified (principal)
CPT/HCPCS: 80053; 85025; 86140

== ENCOUNTER 2022-05-31 10:44 | Outpatient (REF) | payer BC, SELFPAY ==
[2022-05-31 15:39] LABS: Abs Immature Grans 0.04 10^3/uL (0.0-0.06); Absolute Basophil Count 0.03 10^3/uL (0.0-0.2); Absolute Eosinophil Count 0.29 10^3/uL (0.0-0.7); Absolute Lymphocyte Count 1.86 10^3/uL (1.2-3.4); Absolute Monocyte Count 0.36 10^3/uL (0.1-0.8); Absolute Neutrophil Count 1.87 10^3/uL (1.2-6.7); Basophils % 0.7; Eosinophils % 6.5; HCT 29.9 % (36.0-46.0); HGB 9.1 g/dL (11.2-15.7); Immature Grans % 0.9; Lymphocytes % 41.8; MCH 23.8 pg (27.0-33.0); MCHC 30.4 % (32.0-36.0); MCV 78 fL (80-95); MPV 9.4 fL (8.0-11.0); Monocytes % 8.1; Platelet Count 416 10^3/uL (130-400); RBC 3.82 10^6/uL (3.93-5.22); RDW 19.5 % (11.7-14.6); RDW-SD 54.9 fL; WBC 4.45 10^3/uL (4.4-10.8)
[2022-05-31 16:07] LABS: ALT 32 U/L (14-59); AST 84 U/L (15-37); Alkaline Phosphatase 257 U/L (46-116); Anion Gap 8.9 mmol/L (3-11); BUN 16 mg/dL (7-18); Bilirubin, Total 0.2 mg/dL (0.2-1.0); C-Reactive Protein 5.84 mg/dL (0.0-0.3); CO2 28.1 mmol/L (21.0-32.0); CREATININE 0.9 mg/dL (0.55-1.02); Calcium 11.5 mg/dL (8.5-10.1); Chloride 103 mmol/L (98-107); Estimated GFR 72.28 (mL/min/1.73m2); Glucose 96 mg/dL (74-106); Potassium 4.4 mmol/L (3.5-5.1); Sodium 140 mmol/L (136-145); Total Protein 7.4 g/dL (6.4-8.2)
== END 2022-05-31 10:45 | disposition home or self-care (01) ==
LOC: NCHCN 10:44
PROVIDERS: PCP Family Medicine; Visit Provider Family Medicine
DX: N39.0 Urinary tract infection, site not specified (principal); E11.9 Type 2 diabetes mellitus without complications; I10 Essential (primary) hypertension; D64.9 Anemia, unspecified; Z85.830 Personal history of malignant neoplasm of bone; R79.82 Elevated C-reactive protein (CRP)
CPT/HCPCS: 80053; 85025; 86140

== ENCOUNTER 2022-06-09 17:31 | Outpatient (REF) | payer BC, SELFPAY ==
[2022-06-09 15:13] LABS: Abs Immature Grans 0.02 10^3/uL (0.0-0.06); Absolute Basophil Count 0.03 10^3/uL (0.0-0.2); Absolute Eosinophil Count 0.23 10^3/uL (0.0-0.7); Absolute Lymphocyte Count 1.98 10^3/uL (1.2-3.4); Absolute Monocyte Count 0.42 10^3/uL (0.1-0.8); Absolute Neutrophil Count 2.15 10^3/uL (1.2-6.7); Basophils % 0.6; Eosinophils % 4.8; HCT 30.1 % (36.0-46.0); HGB 9.4 g/dL (11.2-15.7); Immature Grans % 0.4; MCH 24.5 pg (27.0-33.0); MCHC 31.2 % (32.0-36.0); MCV 78 fL (80-95); MPV 9.4 fL (8.0-11.0); Monocytes % 8.7; Neutrophils % 44.5; Platelet Count 342 10^3/uL (130-400); RBC 3.84 10^6/uL (3.93-5.22); RDW 20.5 % (11.7-14.6); RDW-SD 57.2 fL; WBC 4.83 10^3/uL (4.4-10.8)
[2022-06-09 15:42] LABS: Anisocytosis 1+; Diff Comment RBC Morph Reviewed
[2022-06-09 15:44] LABS: ALT 24 U/L (14-59); AST 65 U/L (15-37); BUN 13 mg/dL (7-18); Bilirubin, Total 0.2 mg/dL (0.2-1.0); CREATININE 0.7 mg/dL (0.55-1.02); Calcium 9.1 mg/dL (8.5-10.1); Chloride 105 mmol/L (98-107); Estimated GFR 97.72 (mL/min/1.73m2); Glucose 127 mg/dL (74-106); Potassium 4.4 mmol/L (3.5-5.1); Sodium 140 mmol/L (136-145); Total Protein 7.3 g/dL (6.4-8.2)
[2022-06-09 16:00] LABS: Alkaline Phosphatase 276 U/L (46-116); Anion Gap 10.3 mmol/L (3-11); CO2 24.7 mmol/L (21.0-32.0)
[2022-06-09 17:06] LABS: C-Reactive Protein 3.61 mg/dL (0.0-0.3)
== END 2022-06-09 17:32 | disposition home or self-care (01) ==
LOC: NCHCN 17:31
PROVIDERS: PCP Family Medicine; Visit Provider Family Medicine
DX: I10 Essential (primary) hypertension (principal); R79.82 Elevated C-reactive protein (CRP); D64.9 Anemia, unspecified; E11.9 Type 2 diabetes mellitus without complications
CPT/HCPCS: 80053; 85025; 86140

== ENCOUNTER 2022-10-02 10:17 | Emergency (ER) | payer BC, SELFPAY ==
[2022-10-02 10:20] VITALS: BP 118/76; PULSE 99; RESP 18; TEMP 36.3; O2SAT 95
--- NOTE | 2022-10-02 10:30 | DI.CT_ITS ---
Exam(s) CT HEAD WO EXAM: CT HEAD WO CLINICAL HISTORY: facial droop. TECHNIQUE: Imaging Protocol: Axial computed tomography images with coronal and sagittal reformatted images were created and reviewed COMPARISON: No exams were available for comparison FINDINGS: Ventricles and Extra axial spaces: Normal in size and morphology for the patient's age. Hemorrhage: None. Cerebral parenchyma: No acute territorial infarct. Midline shift: None. Brainstem/Cerebellum: Normal. Calvarium: There is diffuse osseous metastatic disease. Visualized Paranasal sinuses/Mastoids: Clear. Soft Tissues: Unremarkable. IMPRESSION: 1. No acute intracranial process. 2. Osseous metastatic disease. 3. Findings were discussed with Dr. Perdomo at 12:04 p.m. on 10/02/2022. RADIATION DOSE DELIVERED: 662.25mGy.cm Total DLP DATA REPOSITORY: All CT scans at this facility are submitted to the National Radiology Data Registry (NRDR) Dose Index Registry (DIR) with the [employer] ([employer]). RADIATION OPTIMIZATION: All CT scans at this facility use at least one of these dose optimization te chniques: automated exposure control; mA and/or kV adjustment per patient size (includes targeted exa ms where dose is matched to clinical indication); or iterative reconstruction.
--- NOTE | 2022-10-02 10:34 | ED.GENADUL_ITS ---
Discharge Plan Disposition Patient Disposition: Home Discharge Details Clinical Impression: Watts's palsy Primary Care Provider: Eriberto Zimmerman ED Provider: Prashant Perdomo [place] Meds and New Rx's Prescriptions: New prednisone 20 mg tablet 60 mg PO DAILY 7 Days Qty: 21 0RF valacyclovir 1 gram tablet 1,000 mg PO TID Qty: 21 0RF No Action (DME) blood-glucose meter Kit See Rx Instructions .Route Rx Instructions: As directed acetic acid 0.25 % solution 1 irrig irrigation DIRECTED PRN Rx Instructions: for urinary catheter flush lidocaine 5 % adhesive patch,medicated 1 patch topical DAILY Rx Instructions: leave on most painful area for up to 12 hrs zinc sulfate PO ascorbate calcium (vitamin C) PO baclofen 10 mg tablet 5 mg PO TID pantoprazole 40 mg Tablet,Delayed Release (Dr/Ec) 40 mg PO DAILY gabapentin 300 mg capsule 2 cap PO Q8H Patient Comments: Take 2 capsules by mouth every 8 hours letrozole 2.5 mg tablet 1 tab PO DAILY Patient Comments: no longer taking midodrine 5 mg tablet 5 mg PO TID Qty: 10 0RF Rx Instructions: do not give last dose of day after 6PM or within 4 hrs of bedtime dabigatran etexilate [Pradaxa] 150 mg Capsule 150 mg PO BID fluticasone propionate [Flonase Allergy Relief] 50 mcg/actuation spray,suspension 2 spray INTRANASAL DAILY Patient Comments: 2 sprays in each nostril daily cyanocobalamin (vitamin B-12) [Vitamin B-12] 500 mcg Tablet 1,000 mcg PO DAILY Qty: 0 0RF magnesium oxide 400 mg (241.3 mg magnesium) Tablet 400 mg PO HS Qty: 0 0RF multivitamin [Multiple Vitamins] Tablet 1 tab PO DAILY Qty: 0 0RF potassium chloride [Klor-Con M20] 20 mEq Tablet,Er Particles/Crystals 20 meq PO BID Qty: 30 0RF Lactobacillus acidophilus 500 million cell Capsule 1 cap PO BID Qty: 0 0RF silver sulfadiazine [SSD] 1 % Cream 1 applic topical BID Qty: 50 0RF sulfamethoxazole-trimethoprim 800-160 mg tablet 1 tab PO BID Patient Comments: TAKE ONE TABLET BY MOUTH TWICE A DAY ondansetron 4 mg tablet,disintegrating 4 mg PO Q6H Patient Comments: DISSOLVE ONE TABLET ON THE TONGUE EVERY 6 HOURS NEEDED FOR NAUSEA Discharge Instructions Instructions: Watts Palsy (ED), Dry Eye Syndrome (ED) HPI General Date/Time Provider Initiated Documentation: 10/02/22 10:21 . History of Present Illness described as moderate, and is localized to the face. Patient started experiencing this day(s) (3) and it has been constant. HPI Narrative: 62 year old female with hx of metastatic breast cancer with mets to bones, paraplegia, DM, HLD, HD, presents to the ED with 3 days of R sided facial droop. She has not other notable new weakness. She has had some issues with not being able to take her meds the past few days because of nausea. No cp/sob, no known fever/chills. Pt notes she is DNR. Related Data Home Medications Medication Instructions Recorded Confirmed gabapentin 300 mg capsule 2 cap PO Q8H 12/14/21 10/02/22 letrozole 2.5 mg tablet 1 tab PO DAILY 12/14/21 10/02/22 midodrine 5 mg tablet 5 mg PO TID #10 tabs 12/14/21 10/02/22 pantoprazole 40 mg tablet,delayed 40 mg PO DAILY 12/14/21 10/02/22 release dabigatran etexilate 150 mg 150 mg PO BID 12/16/21 10/02/22 capsule (Pradaxa) fluticasone propionate 50 2 spray intranasal DAILY 12/21/21 10/02/22 mcg/actuation nasal spray,suspension (Flonase Allergy Relief) cyanocobalamin (vitamin B-12) 500 1,000 mcg PO DAILY #0 tabs 12/30/21 10/02/22 mcg tablet (Vitamin B-12) magnesium oxide 400 mg (241.3 mg 400 mg PO HS #0 tabs 12/30/21 10/02/22 magnesium) tablet multivitamin (Multiple Vitamins 1 tab PO DAILY #0 tabs 12/30/21 10/02/22 tablet) potassium chloride 20 mEq 20 meq PO BID #30 tabs 12/30/21 10/02/22 tablet,extended release(part/cryst) (Klor-Con M) Lactobacillus acidophilus 500 1 cap PO BID #0 caps 04/27/22 10/02/22 million cell capsule silver sulfadiazine 1 % topical 1 applic topical BID #50 grams 04/27/22 10/02/22 cream (SSD) acetic acid 0.25 % irrigation 1 irrig irrigation DIRECTED PRN 08/04/22 10/02/22 solution ascorbate calcium (vitamin C) PO 08/04/22 09/05/22 blood-glucose meter 08/04/22 09/05/22 lidocaine 5 % topical patch 1 patch topical DAILY 08/04/22 10/02/22 zinc sulfate PO 08/04/22 09/05/22 baclofen 10 mg tablet 5 mg PO TID 09/05/22 10/02/22 ondansetron 4 mg disintegrating 4 mg PO Q6H 10/02/22 10/02/22 tablet prednisone 20 mg tablet 60 mg PO DAILY 1 week #21 tabs 10/02/22 sulfamethoxazole 800 1 tab PO BID 10/02/22 10/02/22 mg-trimethoprim 160 mg tablet valacyclovir 1 gram tablet 1,000 mg PO TID #21 tabs 10/02/22 Previous Rx's Medication Instructions Recorded midodrine 5 mg tablet 5 mg PO TID #10 tabs 12/14/21 cyanocobalamin (vitamin B-12) 500 1,000 mcg PO DAILY #0 tabs 12/30/21 mcg tablet (Vitamin B-12) magnesium oxide 400 mg (241.3 mg 400 mg PO HS #0 tabs 12/30/21 magnesium) tablet multivitamin (Multiple Vitamins 1 tab PO DAILY #0 tabs 12/30/21 tablet) potassium chloride 20 mEq 20 meq PO BID #30 tabs 12/30/21 tablet,extended release(part/cryst) (Klor-Con M) Lactobacillus acidophilus 500 1 cap PO BID #0 caps 04/27/22 million cell capsule silver sulfadiazine 1 % topical 1 applic topical BID #50 grams 04/27/22 cream (SSD) prednisone 20 mg tablet 60 mg PO DAILY 1 week #21 tabs 10/02/22 valacyclovir 1 gram tablet 1,000 mg PO TID #21 tabs 10/02/22 Allergies Allergy/AdvReac Type Severity Reaction Status Date / Time No Known Allergies Allergy Verified 10/02/22 10:36 General EMILY: 3 PFSH All Active Problems (Updated 10/02/22 @ 12:21 by Prashant Perdomo MD) Watts's palsy (Acute) Contracture, right hand (Acute) Osteomyelitis, pelvis (Acute) Breast cancer, stage 4 (Acute) History of DVT of lower extremity (Acute) UTI (urinary tract infection) (Acute) Ambulatory dysfunction (Acute) Chronic anemia (Chronic) Decubitus skin ulcer (Acute) Hx of mastectomy (Chronic) Spinal cord compression (Acute) Presence of inferior vena cava filter (Acute) Prediabetes (Acute) Fatty liver (Acute) Medical History GERD (gastroesophageal reflux disease) Hyperlipidemia Hypotension Metastatic breast cancer Neurogenic bladder Non-insulin dependent diabetes mellitus Normocytic normochromic anemia Paraplegia Suprapubic catheter Surgical History H/O bilateral mastectomy Hx of appendectomy S/P cervical spinal fusion S/P IVC filter Family History Brother Hypertension Mother Breast cancer Other Heart disease Social History Smoking/Tobacco Use Status: Never Smoking risk assessment performed?: Yes Alcohol Intake: never Drug use: Never Substance use type: does not use Current gender identity: female Do you feel safe at home: Yes Do you feel safe in your relationship?: Yes Additional Social history: unable to assess privately. Lives with Hao in [place]. 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 Exam Narrative Exam Narrative: Const: well appearing, no acute distress HEENT: normocephalic, atraumatic; MMM Lungs: CTA, no wheezing or rales Heart: RRR Abd: soft, NT/ND Ext: well perfused. Thenar wasting, Neuro: flattening of R foreheard, inability close right eye, and flattening nasolabial fold, and mild droop. upper ext 5/5 equal flexion/extention, no pronator drift. paraplegia LE's Skin: no rashes Course 62 year old female with very long and significant PMHx, with 3 days of right sided facial droop, consistent with Watts's palsy. She is difficult to get good neuro exam due to her baseline, but otherwise appears to be at her neuro baseline. Reevaluation(s) Initial Evaluation: 1205 - spoke to the radiologist, no acute findings, does have findings consistent with her known metastatic dz. Reevaluation: 1220 - updated pt and her about available test results, labs Na a little lower, but otherwise all pretty baseline for her. Head ct without acute issues. Discussed likelihood of Watts's palsy, will start on steroids and antiviral. Pt reluctant to add any meds, but urged her to try and see if it improves sx's. Discussed that she may need patch, or tape eye closed at night, moisturizing drops for her eye, as well. Verbalized understanding and agreeable with plan.
[2022-10-02 10:52] LABS: HCT 34.8 % (36.0-46.0); HGB 11.2 g/dL (11.2-15.7); MCHC 32.2 % (32.0-36.0); MCV 81 fL (80-95); MPV 8.1 fL (8.0-11.0); Platelet Count 366 10^3/uL (130-400); RDW 15.3 % (11.7-14.6); RDW-SD 45.1 fL; WBC 5.68 10^3/uL (4.4-10.8)
[2022-10-02 11:07] LABS: ALT 28 U/L (14-59); AST 65 U/L (15-37); Albumin 2.8 g/dL (3.4-5.0); Alkaline Phosphatase 470 U/L (46-116); Anion Gap 13.1 mmol/L (3-11); BUN 16 mg/dL (7-18); Bilirubin, Total 0.4 mg/dL (0.2-1.0); CO2 23.9 mmol/L (21.0-32.0); CREATININE 0.5 mg/dL (0.55-1.02); Calcium 9.4 mg/dL (8.5-10.1); Chloride 94 mmol/L (98-107); Estimated GFR 105.98 (mL/min/1.73m2); Glucose 112 mg/dL (74-106); Sodium 131 mmol/L (136-145); Total Protein 8.6 g/dL (6.4-8.2)
[2022-10-02 12:40] VITALS: BP 116/72; RESP 20
== END 2022-10-02 12:40 | disposition home or self-care (01) ==
PROVIDERS: Emergency Provider Emergency Medicine; PCP Family Medicine
DX: G51.0 Bell's palsy (principal)
CPT/HCPCS: 80053; 85027; 99284; 70450; 83735